=== PATIENT | male | born 1950 | race Caucasian/White ===

== ENCOUNTER → 2016-08-11 | Outpatient (CLI) | payer MEDICARE, OTHER ==
--- NOTE | 2016-08-11 11:27 | MR ---
EXAMINATION TYPE: MR knee LT wo con DATE OF EXAM: 08/11/2016 COMPARISON: NONE HISTORY: pain in lt knee TECHNIQUE: Multiplanar, multisequence imaging of the left knee is performed without IV contrast. FINDINGS: MEDIAL MENISCUS: There is a horizontal tear within the posterior horn medial meniscus. This may commu nicate with the superior articular surface. The meniscus is truncated along its posterior horn latera l aspect towards the midline. The anterior horn appears intact. LATERAL MENISCUS: Very little posterior horn lateral meniscus is evident. The anterior horn lateral m eniscus is present. CRUCIATE LIGAMENTS: The anterior cruciate ligament is absent. No residual fibers are identified. The posterior cruciate ligament is intact. COLLATERAL LIGAMENTS: The medial collateral ligament and lateral collateral ligament complex are inta ct and unremarkable. EXTENSOR MECHANISM: Visualized quadriceps and patellar tendons are intact. EFFUSION: There is a moderate joint effusion present. Small synovial cyst from the posterior superio r central joint space may be present. POPLITEAL CYST: Popliteal cyst is not identified. TRICOMPARTMENT SPACES: There is narrowing of the medial compartment joint space. Lateral compartment joint space appears widened. Very little articular surface remains present within the knee joint spac e. Lateral tibial plateau and femoral condylar spurring is noted. Some medial femoral condylar spurri ng is also present. There is thinning of the patellofemoral articular surface. CARTILAGE: Diffuse thinning and loss of articular cartilage especially within the lateral compartment . BONE MARROW SIGNAL: There is increased signal within the posterior lateral femoral condyle and tibial plateau at the areas of loss of joint space and articular cartilage. Similar bone edema within the p osterior medial femoral condyle and tibial plateau is present. OTHER: No additional significant abnormality is appreciated. IMPRESSION: 1. Tear with loss of visualized anterior cruciate ligament. 2. Moderate to large joint effusion. 3. Advanced degenerative changes within the medial and lateral compartment joint spaces. 4. Loss of the articular cartilage within the posterior medial and posterior lateral joint spaces wit h edema within the bone adjacent compatible with advanced osteoarthritic degenerative change. 5. Horizontal tear posterior horn medial meniscus. 6. Loss of visualization of the posterior horn lateral meniscus. Some residual component potentially could be within the posterior joint space at this level.
== END | disposition home or self-care (01) ==
LOC: RADMRIMAIN 06:40
PROVIDERS: ATTEND Family Medicine
DX: S83.512A Sprain of anterior cruciate ligament of left knee, initial encounter (principal); S83.242A Other tear of medial meniscus, current injury, left knee, initial encounter; M17.12 Unilateral primary osteoarthritis, left knee

== ENCOUNTER 2017-12-10 16:12 | Inpatient (IN) | payer MEDICARE, OTHER ==
[2017-12-10] MEDS ORDERED: SODIUM CHLORIDE 0.9% 1,000 ML IV STA (16:16)
[2017-12-10] MEDS ORDERED: DIPH,PERTUS(ACELL)TETVAC-LF 0.5 ML VIAL IM ONE (16:17)
--- NOTE | 2017-12-10 16:19 | ED ---
General Adult HPI - General Stated complaint: Possible Stroke Time Seen by Provider: 12/10/17 16:16 Source: patient, EMS, RN notes reviewed, old records reviewed - History of Present Illness Initial comments: 67 yo male presents with suspected stroke. Patient was found outside of a department store, he was initially unresponsive. He had skin abrasion to the right arm and hand. History was difficult for EMS secondary to altered mental status. Patient's mental status doesn't improve by the time of arrival. He has history of previous CVA with residual right-sided deficits. Patient is uncertain why he fell, he states did walk to the department store which was some distance. Denies chest pain or dyspnea. Denies fever or chills. Denies any worsening of his normal right sided weakness. He has history of foot drop on the right as well and is currently in a brace. He is uncertain if he hit his head. He was placed in a c-collar by EMS prior to arrival. - Related Data Home Medications Medication Instructions Recorded Confirmed Citalopram Hydrobromide [CeleXA] 10 mg PO DAILY 12/10/17 12/10/17 Diclofenac Potassium [Cataflam] 50 mg PO TID 12/10/17 12/10/17 Donepezil [Aricept] 10 mg PO DAILY 12/10/17 12/10/17 Folic Acid 1 mg PO DAILY 12/10/17 12/10/17 LORazepam [Ativan] 0.5 mg PO DAILY 12/10/17 12/10/17 Memantine [Namenda] 5 mg PO DAILY 12/10/17 12/10/17 Rosuvastatin [Crestor] 20 mg PO HS 12/10/17 12/10/17 Tamsulosin HCl [Flomax] 0.4 mg PO DAILY 12/10/17 12/10/17 amLODIPine [Norvasc] 10 mg PO DAILY 12/10/17 12/10/17 Allergies Allergy/AdvReac Type Severity Reaction Status Date / Time No Known Allergies Allergy Verified 12/10/17 16:36 Review of Systems ROS Statement: Those systems with pertinent positive or pertinent negative responses have been documented in the HPI. ROS Other: All systems not noted in ROS Statement are negative. General Exam General appearance: alert, in no apparent distress Head exam: Present: atraumatic, normocephalic Eye exam: Present: normal appearance, PERRL ENT exam: Present: mucous membranes dry Neck exam: Present: normal inspection, other (C-collar in place). Absent: tenderness, meningismus Respiratory exam: Present: normal lung sounds bilaterally. Absent: respiratory distress, wheezes Cardiovascular Exam: Present: regular rate, normal rhythm GI/Abdominal exam: Present: soft. Absent: distended, tenderness Extremities exam: Present: other (Superficial abrasion to the right elbow, forearm, hand). Absent: full ROM (contracture of the right upper extremity, right lower extremity foot brace) Neurological exam: Present: alert, CN II-XII intact, motor sensory deficit Skin exam: Present: warm, dry. Absent: cyanosis, diaphoretic Course Vital Signs 12/10/17 12/10/17 12/10/17 16:18 16:20 16:30 Temperature 98.5 F Pulse Rate 75 71 Respiratory 16 11 L Rate Blood Pressure 107/64 107/64 O2 Sat by Pulse 97 98 Oximetry 12/10/17 12/10/17 12/10/17 16:40 16:50 17:00 Temperature Pulse Rate 64 72 68 Respiratory 6 L 13 12 Rate Blood Pressure 107/65 107/65 107/65 O2 Sat by Pulse 100 100 100 Oximetry 12/10/17 12/10/17 12/10/17 17:10 17:17 17:20 Temperature Pulse Rate 73 71 Respiratory 8 L 16 16 Rate Blood Pressure 117/61 117/61 O2 Sat by Pulse 100 100 Oximetry 12/10/17 12/10/17 12/10/17 17:30 17:40 17:50 Temperature Pulse Rate 79 73 Respiratory 11 L 7 L Rate Blood Pressure 117/61 134/69 134/69 O2 Sat by Pulse 99 100 Oximetry 12/10/17 12/10/17 12/10/17 18:00 18:10 18:20 Temperature Pulse Rate 76 68 72 Respiratory 14 9 L 12 Rate Blood Pressure 134/69 109/65 109/65 O2 Sat by Pulse 98 100 100 Oximetry 12/10/17 12/10/17 12/10/17 18:30 18:40 18:50 Temperature Pulse Rate 71 Respiratory 20 21 17 Rate Blood Pressure 109/65 112/65 112/65 O2 Sat by Pulse 100 100 98 Oximetry EKG Findings - EKG Comments: EKG Findings:: EKG: Normal sinus rhythm, rate of 76, VT interval 196, QRS duration 96, QTC 450, no ST segment elevation or depression Medical Decision Making - Medical Decision Making 67 yo male presents status post fall, likely syncopal episode. Patient has superficial injuries, no head trauma. CT is obtained of the head, is negative for new intracranial pathology, there is large old lacunar infarct, CT cervical spine is negative for fracture dislocation. Chest x-ray and pelvis x-ray are unremarkable. EKG shows normal sinus rhythm, CBC, CMP and troponin are negative , urinalysis is pending. Patient was brought in as a suspected stroke however he has residual right-sided deficit from previous stroke this is unchanged. I did discuss at length with the patient's sister, his dysarthria and weakness is baseline. Patient clinically does appear somewhat dehydrated on initial EMS blood pressure was low. He is given IV hydration emergency department. He will be kept in observation for continued IV hydration and telemetry for syncopal episode. His sister will need to be called at the time of discharge to arrange transportation. - Lab Data Result diagrams: 12/10/17 16:22 12/10/17 16:22 Lab Results 12/10/17 12/10/17 12/10/17 Range/Units 16:20 16:22 16:22 WBC 5.9 (3.8-10.6) k/uL RBC 4.35 (4.30-5.90) m/uL Hgb 13.5 (13.0-17.5) gm/dL Hct 40.5 (39.0-53.0) % MCV 93.2 (80.0-100.0) fL MCH 31.1 (25.0-35.0) pg MCHC 33.3 (31.0-37.0) g/dL RDW 13.1 (11.5-15.5) % Plt Count 197 (150-450) k/uL Neutrophils % 60 % Lymphocytes % 30 % Monocytes % 7 % Eosinophils % 1 % Basophils % 0 % Neutrophils # 3.5 (1.3-7.7) k/uL Lymphocytes # 1.7 (1.0-4.8) k/uL Monocytes # 0.4 (0-1.0) k/uL Eosinophils # 0.1 (0-0.7) k/uL Basophils # 0.0 (0-0.2) k/uL PT (9.0-12.0) sec INR (<1.2) APTT (22.0-30.0) sec Sodium (137-145) mmol/L Potassium (3.5-5.1) mmol/L Chloride (98-107) mmol/L Carbon Dioxide (22-30) mmol/L Anion Gap mmol/L BUN (9-20) mg/dL Creatinine (0.66-1.25) mg/dL Est GFR (CKD-EPI)AfAm (>60 ml/min/1.73 sqM) Est GFR (CKD-EPI)NonAf (>60 ml/min/1.73 sqM) Glucose (74-99) mg/dL POC Glucose (mg/dL) 105 H (75-99) mg/dL POC Glu [employer] Intelligence Analyst ID Hailee Joyner Calcium (8.4-10.2) mg/dL Total Bilirubin (0.2-1.3) mg/dL AST (17-59) U/L ALT (21-72) U/L Alkaline Phosphatase (38-126) U/L Total Creatine Kinase 54 L (55-170) U/L CK-MB (CK-2) 0.7 (0.0-2.4) ng/mL CK-MB (CK-2) Rel Index 1.3 Troponin I <0.012 (0.000-0.034) ng/mL Total Protein (6.3-8.2) g/dL Albumin (3.5-5.0) g/dL 12/10/17 12/10/17 Range/Units 16:22 16:22 WBC (3.8-10.6) k/uL RBC (4.30-5.90) m/uL Hgb (13.0-17.5) gm/dL Hct (39.0-53.0) % MCV (80.0-100.0) fL MCH (25.0-35.0) pg MCHC (31.0-37.0) g/dL RDW (11.5-15.5) % Plt Count (150-450) k/uL Neutrophils % % Lymphocytes % % Monocytes % % Eosinophils % % Basophils % % Neutrophils # (1.3-7.7) k/uL Lymphocytes # (1.0-4.8) k/uL Monocytes # (0-1.0) k/uL Eosinophils # (0-0.7) k/uL Basophils # (0-0.2) k/uL PT 11.1 (9.0-12.0) sec INR 1.1 (<1.2) APTT 20.7 L (22.0-30.0) sec Sodium 142 (137-145) mmol/L Potassium 3.9 (3.5-5.1) mmol/L Chloride 107 (98-107) mmol/L Carbon Dioxide 20 L (22-30) mmol/L Anion Gap 15 mmol/L BUN 18 (9-20) mg/dL Creatinine 0.88 (0.66-1.25) mg/dL Est GFR (CKD-EPI)AfAm >90 (>60 ml/min/1.73 sqM) Est GFR (CKD-EPI)NonAf 90 (>60 ml/min/1.73 sqM) Glucose 106 H (74-99) mg/dL POC Glucose (mg/dL) (75-99) mg/dL POC Glu Shipboard Intelligence Analyst ID Calcium 9.5 (8.4-10.2) mg/dL Total Bilirubin 1.1 (0.2-1.3) mg/dL AST 40 (17-59) U/L ALT 68 (21-72) U/L Alkaline Phosphatase 63 (38-126) U/L Total Creatine Kinase (55-170) U/L CK-MB (CK-2) (0.0-2.4) ng/mL CK-MB (CK-2) Rel Index Troponin I (0.000-0.034) ng/mL Total Protein 6.8 (6.3-8.2) g/dL Albumin 4.1 (3.5-5.0) g/dL Disposition Clinical Impression: Dehydration Disposition: ADMITTED IP TO THIS [facility] Condition: Stable Is patient prescribed a controlled substance at d/c from ED?: No Referrals: None,Stated [Primary Care Provider] - 1-2 days Decision to Admit Reason: Admit from EC Decision Date: 12/10/17 Decision Time: 20:00
[2017-12-10 16:33] LABS: Basophils % (A) 0 %; Eosinophils # (A) 0.1 k/uL (0-0.7); Eosinophils % (A) 1 %; HCT 40.5 % (39.0-53.0); HGB 13.5 gm/dL (13.0-17.5); Lymphocytes # (A) 1.7 k/uL (1.0-4.8); Lymphocytes % (A) 30 %; MCH 31.1 pg (25.0-35.0); MCHC 33.3 g/dL (31.0-37.0); MCV 93.2 fL (80.0-100.0); Mean Platelet Volume 7.6; Monocytes # (A) 0.4 k/uL (0-1.0); Monocytes % (A) 7 %; Neutrophils # (A) 3.5 k/uL (1.3-7.7); Neutrophils % (A) 60 %; Platelet Count 197 k/uL (150-450); RBC 4.35 m/uL (4.30-5.90); RDW 13.1 % (11.5-15.5); WBC 5.9 k/uL (3.8-10.6)
[2017-12-10 16:42] LABS: ALT 68 U/L (21-72); AST 40 U/L (17-59); Albumin 4.1 g/dL (3.5-5.0); Alkaline Phosphatase 63 U/L (38-126); Anion Gap 15 mmol/L; Blood Urea Nitrogen 18 mg/dL (9-20); Calcium 9.5 mg/dL (8.4-10.2); Carbon Dioxide 20 mmol/L (22-30); Chloride 107 mmol/L (98-107); Glucose 106 mg/dL (74-99); Potassium 3.9 mmol/L (3.5-5.1); Sodium 142 mmol/L (137-145); Total Bilirubin 1.1 mg/dL (0.2-1.3); Total Protein 6.8 g/dL (6.3-8.2)
[2017-12-10 16:54] LABS: Creatine Kinase 54 U/L (55-170); INR 1.1 (<1.2); Prothrombin Time 11.1 sec (9.0-12.0)
[2017-12-10 16:57] LABS: Partial Thromboplastin Time 20.7 sec (22.0-30.0)
[2017-12-10 17:07] LABS: Creatine Kinase MB 0.7 ng/mL (0.0-2.4); Troponin I <0.012 ng/mL (0.000-0.034)
--- NOTE | 2017-12-10 17:07 | CT ---
EXAMINATION TYPE: CT brain aminta portillo DATE OF EXAM: 12/10/2017 COMPARISON: CT brain 10/02/2014 HISTORY: Confusion and fall today CT DLP: 1631.6 mGycm Automated exposure control for dose reduction was used. TECHNIQUE: CT scan of the head and cervical spine are performed without contrast. FINDINGS: There is cerebral cortical atrophy. There is large left old internal capsule infarct. The re is no mass effect nor midline shift. There is no sign of intracranial hemorrhage. There is enlarge ment of left lateral ventricle. There is white matter hypodensity left parietal lobe. Cervical vertebra have normal alignment. There is degenerative disc space narrowing from C3 to C7 wit h spurring of the endplates. Posterior elements are intact. Skull base is intact. Facet joints are in tact. IMPRESSION: Old large left internal capsule infarct. Cerebral atrophy. No acute intracranial abnormality. No pederson ge compared to old CT scan. Spondylotic changes in the mid and lower cervical spine. No fracture seen.
[2017-12-10 17:26] LABS: Glucose,Whole Blood 105 mg/dL (75-99)
--- NOTE | 2017-12-10 18:01 | XR ---
EXAMINATION TYPE: XR pelvis AP view DATE OF EXAM: 12/10/2017 COMPARISON: NONE HISTORY: Pain. Fall. TECHNIQUE: Single view FINDINGS: Pelvic ring is intact. There is right hip prosthesis. Components appear in anatomic positio n. There are radha in the pelvis. Sacroiliac joints appear intact. Proximal left femur and hip joint appear intact. IMPRESSION: No acute abnormality of the pelvis.
--- NOTE | 2017-12-10 18:02 | XR ---
EXAMINATION TYPE: XR chest 2V DATE OF EXAM: 12/10/2017 COMPARISON: NONE HISTORY: Fall. Pain TECHNIQUE: Frontal and lateral views of the chest are obtained. FINDINGS: Heart and mediastinum are within normal limits. Lungs are clear. Diaphragm is normal. Bony thorax is intact. There are chest leads. IMPRESSION: Normal chest.
[2017-12-10] MEDS ORDERED: ACETAMINOPHEN TAB 325 MG TAB PO PRN (19:56)
[2017-12-10] MEDS ORDERED: NALOXONE 0.4 MG/ML 1 ML VIAL IV PRN (19:56)
[2017-12-10] MEDS: SODIUM CHLORIDE 0.9% 1,000 ML IV SCH (20:27)
[2017-12-10 22:03] VITALS: BMI 22.4
[2017-12-10] MEDS: ATORVASTATIN 40 MG TAB PO SCH (22:11)
[2017-12-10 23:02] LABS: Appearance,Urine Cloudy (Clear); Bacteria,Urine Occasional /hpf; Bilirubin,Urine Negative (Negative); Blood,Urine Negative (Negative); Color,Urine Yellow; Glucose,Urine (UA) Negative (Negative); Hyaline Casts,Urine 1 /lpf (0-2); Ketones,Urine Negative (Negative); Leukocyte Esterase,Urine Trace (Negative); Mucus,Urine Few /hpf; Nitrite,Urine Positive (Negative); PH, Urine 5.5 (5.0-8.0); Protein,Urine Negative (Negative); RBC,Urine 1 /hpf (0-5); Specific Gravity,Urine 1.012 (1.001-1.035); Urobilinogen,Urine <2.0 mg/dL (<2.0); WBC,Urine 5 /hpf (0-5)
[2017-12-11] MEDS ORDERED: MEMANTINE 5 MG TAB PO SCH (09:00)
[2017-12-11] MEDS ORDERED: DONEPEZIL 10 MG TAB PO SCH (09:00)
[2017-12-11] MEDS ORDERED: amLODIPine 10 MG TAB PO SCH (09:00)
[2017-12-11] MEDS: SODIUM CHLORIDE 0.9% 1,000 ML IV SCH (09:15)
[2017-12-11] MEDS: DONEPEZIL 10 MG TAB PO SCH (11:44)
[2017-12-11] MEDS: MEMANTINE 5 MG TAB PO SCH (11:44)
--- NOTE | 2017-12-11 12:35 | US ---
EXAMINATION TYPE: US carotid duplex BILAT DATE OF EXAM: 12/11/2017 COMPARISON: US carotid October 27, 2014 CLINICAL HISTORY: syncopal episode. EXAM MEASUREMENTS: RIGHT: Peak Systolic Velocity (PSV) cm/sec ----- Right CCA: 73.5 ----- Right ICA: 88.6 ----- Right ECA: 61.0 ICA/CCA ratio: 1.2 RIGHT: End Diastole cm/sec ----- Right CCA: 18.6 ----- Right ICA: 23.1 ----- Right ECA: 10.4 LEFT: Peak Systolic Velocity (PSV) cm/sec ----- Left CCA: 66.9 ----- Left ICA: occluded ----- Left ECA: 97.7 ICA/CCA ratio: occluded LEFT: End Diastole cm/sec ----- Left CCA: 7.6 ----- Left ICA: occluded ----- Left ECA: 8.7 VERTEBRALS (direction of flow): Right Vertebral: Antegrade Left Vertebral: Antegrade Rhythm: Normal Left sided occlusion. IMPRESSION: Chronic occlusion of left internal carotid artery just past bulb. No significant stenosi s in right internal carotid artery. No significant change from prior. Criteria for Assigning % of Stenosis / Diameter reduction (Estimation based on the indirect measurements of the internal carotid artery velocities (ICA PSV). 1. Normal (no stenosis)=ICA PSV < 125 cm/s: ratio < 2.0: ICA EDV<40 cm/s. 2. Less than 50% stenosis=ICA PSV < 125 cm/s: ratio < 2.0: ICA EDV<40 cm/s. 3. 50 to 69% stenosis=ICA PSV of 125 to 230 cm/s: ration 2.0 ? 4.0: ICA EDV 40-100 cm/s. 4. Greater than 70% stenosis to near occlusion= ICA PSV > 230 cm/s: ratio > 4.0: ICA EDV > 100 cm/s. 5. Near occlusion= ICA PSV velocities may be low or undetectable: variable ratio and ICA EDV. 6. Total occlusion=unable to detect flow.
--- NOTE | 2017-12-11 18:48 | ECHOF ---
Referral Reason:syncopal episode MEASUREMENTS -------- HEIGHT: 182.9 cm WEIGHT: 78.0 kg BP: 123/72 IVSd: 1.3 cm (0.6 - 1.1) LVIDd: 4.6 cm (3.9 - 5.3) LVPWd: 1.3 cm (0.6 - 1.1) IVSs: 1.3 cm LVIDs: 3.3 cm LVPWs: 1.6 cm Ao Diam: 3.3 cm (2.0 - 3.7) LA Diam: 3.2 cm (2.7 - 3.8) AV Cusp: 2.2 cm (1.5 - 2.6) EPSS: 1.7 cm MV E Chetan: 0.48 m/s MV DecT: 265 ms MV A Chetan: 0.44 m/s MV E/A Ratio: 1.10 RAP: 5.00 mmHg RVSP: 13.69 mmHg MV EF SLOPE: 65.33 mm/s (70 - 150) MV EXCURSION: 9.72 mm (> 18.000) FINDINGS -------- Sinus rhythm. This was a technically good study. The left ventricular size is normal. There is mild concentric left ventricular hypertrophy. Overa ll left ventricular systolic function is low-normal with, an EF between 50 - 55 %. The right ventricle is normal in size and function. The left atrium is normal in size. The right atrium is normal in size. The aortic valve is trileaflet, and appears structurally normal. No aortic stenosis or regurgitation. Mild mitral regurgitation is present. Mild tricuspid regurgitation present. The right ventricular systolic pressure, as measured by Doppl er, is 13.69mmHg. Pulmonic valve appears structurally normal. The aortic root, ascending aorta and aortic arch are normal. The pericardium is normal. CONCLUSIONS -------- 1. Sinus rhythm. 2. This was a technically good study. 3. The left ventricular size is normal. 4. There is mild concentric left ventricular hypertrophy. 5. Overall left ventricular systolic function is low-normal with, an EF between 50 - 55 %. 6. The right ventricle is normal in size and function. 7. The left atrium is normal in size. 8. The right atrium is normal in size. 9. The aortic valve is trileaflet, and appears structurally normal. No aortic stenosis or regurgitati on. 10. Mild mitral regurgitation is present. 11. Mild tricuspid regurgitation present. 12. The right ventricular systolic pressure, as measured by Doppler, is 13.69mmHg. 13. Pulmonic valve appears structurally normal. 14. The aortic root, ascending aorta and aortic arch are normal. 15. The pericardium is normal. TECHNICAL SERVICES ANALYST: Mary Lam RDCS
--- NOTE | 2017-12-11 20:06 | HP ---
HISTORY AND PHYSICAL CHIEF COMPLAINT: Possible stroke. HISTORY OF PRESENT ILLNESS: 67-year-old white male with a suspected stroke, was found in department store unresponsive. Skin abrasions, right arm, right hand. altered mental state. Does not know why he passed out. He had previous CVA with residual right-sided effects. Uncertain why he fell, unsure if he tripped. He has bilateral significant knee arthritis. He has footdrop on the right and is currently in a brace and uncertain if he hit his head. He is in a C-collar in the ER, he is on the floor at this time and says that he feels fine. MEDICATIONS: 1. Celexa 10 daily. 2. Cataflam 50 t.i.d. 3. Aricept 10 daily. 4. Folic acid 1 mg daily. 5. Ativan 0.5 mg daily p.r.n. for anxiety. 6. Namenda 5 mg daily. 7. Crestor 20 mg daily. 8. Flomax 0.4 mg daily. 9. Norvasc 10 mg daily. ALLERGIES: No known drug allergies. PHYSICAL EXAMINATION: Blood pressure in the emergency room was 107/64, heart rate mid 70s, respiratory rate 11 to 16, temp 98.5. CARDIOVASCULAR: S1, S2. Lungs clear. GI is soft. Mild tenderness around cervical muscles. He has right swelling. He has some abrasions, right hand. Integument exam has some right lower extremity swelling and his right elbow. Neuro: Cranial nerves are intact. Skin is warm and dry. Lungs are clear. Heart regular rate and rhythm. REVIEW OF SYSTEMS: Fourteen point review of systems negative except for mentioned in HPI. EKG shows sinus rhythm. ASSESSMENT: Status post fall, likely syncopal episode, superficial injuries. CT of the head is negative. There is a large old lacunar infarct. CT of the cervical spine negative for fracture. Chest x-ray, pelvic x-rays are unremarkable. His dysarthria, weakness at baseline. He was dehydrated on initial. Blood pressure was possibly low. IV hydration will be done. Neurology consult. Possible discharge home next 24 hours if patient stabilizes and cleared by Neurology. Possibly cut his Norvasc down to 5 mg a day due to borderline low hypotension and dehydration. MMODL / IJN: [id number] /
[2017-12-11 20:12] VITALS: RESP 16
--- NOTE | 2017-12-11 20:15 | XR ---
PROCEDURE: XR elbow limited RT 3V DATE AND TIME: 12/11/2017 7:55 PM CLINICAL INDICATION: Pain;trauma TECHNIQUE: Department protocol. 3V COMPARISON: None FINDINGS: Hardware is intact without khanh-prosthesis lucencies. There is no fracture or malalignment. The soft tissues are unremarkable. IMPRESSION: NO ACUTE PROCESS.
[2017-12-11] MEDS: ATORVASTATIN 40 MG TAB PO SCH (21:06)
[2017-12-12] MEDS: SODIUM CHLORIDE 0.9% 1,000 ML IV SCH ×2 (00:23→11:01)
[2017-12-12 01:32] LABS: Cholesterol 107 mg/dL (<200); HDL Cholesterol 44 mg/dL (40-60); LDL Cholesterol,Calculated 42 mg/dL (0-99); Triglycerides 103 mg/dL (<150)
[2017-12-12] MEDS: DONEPEZIL 10 MG TAB PO SCH (07:54)
[2017-12-12] MEDS: MEMANTINE 5 MG TAB PO SCH (07:54)
[2017-12-12] MEDS: amLODIPine 5 MG TAB PO SCH (07:54)
--- NOTE | 2017-12-12 09:40 | CONS ---
CONSULTATION DATE OF CONSULTATION: 12/11/2017 CHIEF COMPLAINT: Presyncopal episode. HISTORY OF PRESENT ILLNESS: Mr. Gillette is a pleasant 67-year-old male, who was being evaluated today on 12/11/2017 by the neurology service per the request of Dr. Grubbs for a presyncopal spell. The patient states that he was at a local shopping store when he felt very dizzy and lightheaded. According to the chart, the patient became unresponsive but the patient himself denies any loss of consciousness. He did fall to the ground and had some superficial abrasions on his right arm and hand. The patient does have a previous history of stroke with residual right hemiparesis, but he is able to ambulate using a cane. EMS was called and the patient was transferred to [facility] Emergency Room where a CT scan of the brain was done, which showed an old infarct involving the left internal capsule along with some generalized atrophy. Overall, the study was felt to be unchanged when compared to his 2015 CT scan of the brain. A CT scan of the cervical spine showed no evidence of any fractures. His carotid Doppler showed chronic occlusion of his left internal carotid artery and no hemodynamically significant stenosis on the right side. His CBC, comprehensive metabolic profile and cardiac enzymes were normal. His urinalysis showed 5 WBCs with trace leukocyte esterase. At the time of my evaluation, the patient is lying in his bed and appears to be in no acute distress. He denied any recurrence of any dizziness since his arrival to the hospital. His blood pressure since arriving to the hospital has been normal to borderline low. PAST MEDICAL HISTORY: Ischemic stroke, depression, dementia, dyslipidemia, hypertension. SOCIAL HISTORY: He denied any tobacco or alcohol or drug use. FAMILY HISTORY: Noncontributory. HOME MEDICATIONS: Reviewed in the chart. ALLERGIES: No known drug allergies. REVIEW OF SYSTEMS: CONSTITUTIONAL: Negative. EYES: Negative. ENT: As mentioned above. CARDIOVASCULAR: As mentioned above. He denies any chest pain. RESPIRATORY: Negative. NEUROLOGICAL: As mentioned above. GASTROINTESTINAL: Negative. GENITOURINARY: Positive for occasional urinary retention. PSYCHIATRIC: Positive for history of depression. DERMATOLOGICAL: As mentioned above. ENDOCRINE: Negative. MUSCULOSKELETAL: Positive for occasional joint pain. PHYSICAL EXAM: Vital signs show a temperature of 98.8, pulse 78, respiration 18, blood pressure 108/57. GENERAL APPEARANCE: The patient is a well-developed male, who appears to be in no acute distress. HEENT: Normocephalic, atraumatic. Neck is supple with no masses felt. CARDIOVASCULAR: Regular rate and rhythm. ABDOMEN: Nontender, nondistended. Extremities showed no edema or clubbing. Superficial abrasions are noticed on the right upper extremity. NEUROLOGICAL EXAM: The patient is awake and oriented x3. Strength is 3 out of 5 in the right upper extremity, 4+ out of 5 in the right lower extremity, and 5 out of 5 on the left side. Significant obstetrics specialist weakness is present on the right side. Sensory exam was normal to light touch in all 4 extremities. Language testing showed slightly reduced fluency and naming. Cranial nerve testing showed right facial weakness. IMPRESSION: 1. Dizziness. 2. Presyncopal episode. 3. History of ischemic stroke with residual right hemiparesis. 4. Left internal carotid artery occlusion. 5. History of dementia. RECOMMENDATION: The patient's presyncopal episode was likely due to cardiovascular etiology as he did become very lightheaded before he fell to the ground. Continue blood pressure monitoring and I do recommend telemetry monitoring. A cardiology consultation is recommended. From a neurology standpoint, I will order an EEG. The patient does have a previous history of stroke and will continue on aspirin therapy. It is unclear why this has not been started on his admitting medications, but I do recommend him being on aspirin. A fasting lipid panel, and serum homocysteine level will be ordered. Continue with neuro checks. As for his history of dementia, I will keep him on his home dose of Aricept and Namenda. I will continue to follow with you. Further recommendations to follow. Thank you for allowing me to participate in the care of your patient. If you have any questions, please feel free to contact me. MMODL / IJN: [id number] /
--- NOTE | 2017-12-12 14:25 | P.PN ---
Subjective Progress Note Date: 12/12/17 Principal diagnosis: Presyncope Pleasant 67-year-old male continuing to be evaluated by the neurology service for presyncopal episode. His symptoms were that of dizziness and lightheadedness. He denies loss of consciousness. There was a fall and he had some superficial abrasions to the right arm and hand. He has a history of stroke with residual right hemiparesis. His muscle CT of the brain was done and showed an old infarct of the left internal capsule. The study was unchanged from his 2015 study. 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 His lipid profile showed a triglyceride of 103, cholesterol of 107, LDL of 42, and an HDL of 44. At the time of my exam he is resting comfortably in bed and EEG electrodes are being hooked up for his ordered study. Objective - Vital Signs Vital signs: Vital Signs Temp 98.4 F 12/12/17 08:00 Pulse 72 12/12/17 08:00 Resp 16 12/12/17 12:00 BP 111/68 12/12/17 08:00 Pulse Ox 96 12/12/17 08:00 Intake & Output 12/11/17 12/12/17 12/12/17 18:59 06:59 18:59 Intake Total 480 Output Total 1200 650 200 Balance -720 -650 -200 Intake: Oral 480 Output: Urine 1200 650 200 Other: Voiding Method Urinal Urinal Urinal # Voids 1 - Constitutional General appearance: Present: average body habitus, cooperative - EENT Eyes: Present: EOMI, PERRLA. Absent: abnormal pupil, ptosis ENT: Present: hearing grossly normal - Neck Neck: Present: normal ROM - Respiratory Respiratory: negative: prolonged expiration, prolonged inspiration - Cardiovascular Rhythm: regular - Gastrointestinal General gastrointestinal: Absent: distended - Neurologic Neurologic Comment(s): The patient is alert awake and oriented 3. Speech is normal, we'll there remains slightly reduced fluency. There is no facial asymmetry. Strength is 5 out of 5 in left upper and lower extremities, and 3 out of 5 in the right upper extremity, 4+ out of 5 in the right lower extremity. There is no sensory deficit. No tremors or seizures are seen. Cranial nerves II through XII are intact globally except for some right facial weakness. - Labs CBC & Chem 7: 12/10/17 16:22 12/10/17 16:22 Assessment and Plan (1) Dizziness Current Visit: Yes Status: Resolved Code(s): R42 - DIZZINESS AND GIDDINESS SNOMED Code(s): 730332832 (2) Pre-syncope Current Visit: Yes Status: Acute Code(s): R55 - SYNCOPE AND COLLAPSE SNOMED Code(s): 426812124 (3) History of stroke Current Visit: Yes Status: Chronic Code(s): Z86.73 - PRSNL HX OF TIA (TIA), AND CEREB INFRC W/O RESID DEFICITS SNOMED Code(s): 744579165 (4) Hemiparesis affecting right side as late effect of cerebrovascular accident Current Visit: Yes Status: Chronic Code(s): I69.351 - HEMIPLGA FOLLOWING CEREBRAL INFRC AFF RIGHT DOMINANT SIDE SNOMED Code(s): 790998927 (5) Left carotid artery occlusion Current Visit: Yes Status: Chronic Code(s): I65.22 - OCCLUSION AND STENOSIS OF LEFT CAROTID ARTERY SNOMED Code(s): 029153560926663 (6) Dementia Current Visit: Yes Status: Chronic Code(s): F03.90 - UNSPECIFIED DEMENTIA WITHOUT BEHAVIORAL DISTURBANCE SNOMED Code(s): 51814567 Plan: This episode could possibly have been from dehydration and hypotension, combined with his known left carotid occlusion. Symptoms have all resolved. Continue cardiology evaluation as needed. EEG is being performed at the time of my exam, and we will review the results unavailable. Continue aspirin therapy and Lipitor at current dose.. Continue Aricept and Namenda. Barring any unforeseen abnormalities on his EEG he would be cleared from a neurological standpoint. I have performed a history and physical on the above patient. I have reviewed the above note, and agree.
[2017-12-12] MEDS: ASPIRIN 81 MG PO SCH (17:15)
--- NOTE | 2017-12-12 18:16 | EEG ---
ELECTROENCEPHALOGRAM REPORT DATE OF SERVICE: 12/12/2017 REASON FOR TESTING: Dizziness. DESCRIPTION OF THE PROCEDURE: This EEG was performed using a 21-channel digital electroencephalograph, following international 10-20 system. DESCRIPTION OF THE RECORDING: From the beginning of the tracing, and with the patient's eyes closed, the background rhythm was mostly consisting of 7 Hz theta frequency in the posterior occipital leads. No obvious asymmetry is seen. Photic stimulation was performed with no driving response seen. No pathological waves were elicited. Hyperventilation was not performed. Occasional movement artifacts are seen. The patient remains awake throughout the tracing. No epileptiform discharges were seen. His EKG lead showed a regular rate and rhythm. INTERPRETATION: This awake EEG is abnormal due to the presence of generalized slowing of the background rhythm, mostly in the theta range. This is consistent with mild encephalopathy. No epileptiform discharges were seen. The absence of epileptiform discharges does not rule out the diagnosis of epilepsy; therefore clinical correlation is recommended. MMCAROLINA / HIMANSHU: [id number] /
--- NOTE | 2017-12-12 22:13 | PN ---
PROGRESS NOTE 67-year-old white white male admitted with syncope. Neurology saw the patient. Wants Cardiology to clear him, which will be done. EEG was done to rule out seizures, which showed mild encephalopathy and no seizure activity. Dr. Sahu, Neurology saw the patient who wants Cardiology to see him. He has had old infarcts in the left internal capsule. ASSESSMENT: 1. Dizziness, presyncope. 2. History of cerebrovascular accident. 3. Hemiparesis secondary to right sided prior cerebrovascular accident. 4. Possibly dehydration. 5. Hypotension. His amlodipine was decreased to 5 mg. Significant carotid occlusion. Continue aspirin, Lipitor, Aricept and Namenda. Possibly discharge home if cleared by Cardiology in the morning. MMODL / IJN: [id number] /
[2017-12-12] MEDS: ATORVASTATIN 40 MG TAB PO SCH (22:31)
[2017-12-13 11:29] LABS: Basophils % (A) 1 %; Eosinophils # (A) 0.2 k/uL (0-0.7); Eosinophils % (A) 2 %; HCT 42.6 % (39.0-53.0); HGB 13.6 gm/dL (13.0-17.5); Lymphocytes # (A) 1.5 k/uL (1.0-4.8); Lymphocytes % (A) 18 %; MCH 30.1 pg (25.0-35.0); MCHC 31.9 g/dL (31.0-37.0); MCV 94.3 fL (80.0-100.0); Mean Platelet Volume 7.1; Monocytes # (A) 0.5 k/uL (0-1.0); Monocytes % (A) 6 %; Neutrophils % (A) 71 %; Platelet Count 192 k/uL (150-450); RBC 4.52 m/uL (4.30-5.90); RDW 13.3 % (11.5-15.5); WBC 8.4 k/uL (3.8-10.6)
[2017-12-13 11:43] LABS: ALT 63 U/L (21-72); AST 35 U/L (17-59); Albumin 3.6 g/dL (3.5-5.0); Alkaline Phosphatase 65 U/L (38-126); Anion Gap 9 mmol/L; Blood Urea Nitrogen 11 mg/dL (9-20); Calcium 9.3 mg/dL (8.4-10.2); Carbon Dioxide 28 mmol/L (22-30); Chloride 104 mmol/L (98-107); Glucose 87 mg/dL (74-99); Potassium 4.2 mmol/L (3.5-5.1); Sodium 141 mmol/L (137-145); Total Bilirubin 1.5 mg/dL (0.2-1.3); Total Protein 6.3 g/dL (6.3-8.2)
[2017-12-13 12:00] VITALS: PULSE 62
[2017-12-13] MEDS ORDERED: SODIUM CHLORIDE 0.9% 1,000 ML IV SCH (12:15)
[2017-12-13] MEDS: MEMANTINE 5 MG TAB PO SCH (12:33)
[2017-12-13] MEDS: amLODIPine 5 MG TAB PO SCH (12:33)
[2017-12-13] MEDS: DONEPEZIL 10 MG TAB PO SCH (12:33)
[2017-12-13] MEDS: ASPIRIN 81 MG PO SCH (12:33)
[2017-12-13] MEDS ORDERED: SODIUM CHLORIDE 0.9% 500 ML 500 ML IV ONE (14:18)
--- NOTE | 2017-12-13 14:31 | P.CRDCN ---
History of Present Illness History of present illness: Mr. Gillette is a pleasant 67-year-old male past medical history significant for CVA with right sided residual, dyslipidemia, hypertension and chronic nicotine dependence. 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 We have been asked to see him in consultation for syncope. He states 2 days ago he was walking to [facility] when he all of a sudden fell. There were no symptoms of chest pain, shortness of breath , dizziness, palpitatioCT brain with evidence of old large left internal capsule infarct, cerebral atrophy with no acute intracranial abnormality and no changes compared to old computed tomography scan.ns or nausea. He was able to catch himself from actually falling to the ground and continue walking. He states a few minutes later he was trying to get into the wheelchair cart when he again fell forward this time losing consciousness. He again had no symptoms prior to falling. He has chronic right sided weakness from his previous CVA but he feels like his right side is more weak since he fell. Neuro has also seen the patient in consultation. They believe this event is secondary to dehydration and hypotension. No acute stroke. EKG reveals sinus mechanism with no acute ST or T-wave abnormalities. Chest xray CT brain shows evidence of old large internal capsule infarct with cerebral atrophy. No acute intracranial abnormality and no change from previous CT. Chest xray negative for an acute cardiopulmonary process. Carotid doppler with chronic occlusion of left internal carotid artery just past the bulb and no stenosis of the right ICA. No change from prior. Echocardiogram obtained reveals preserved LV systolic function with EF 50-55%, mild TR and mild MR. Laboratory data reviewed, hgb 13.6, plt 192, sodium 141, potassium 4.2, creatinine 0.56, cardiac enzymes negative x1, TSH 1.46. Current cardiac medications amlodipine 10 mg daily and rosuvastatin 20 mg daily. He also takes Flomax, Namenda, Ativan, Aricept and Celexa. At the time of my exam: CONSTITUTIONAL: Denies fever. Denies chills. EYES: Denies blurred vision. Denies vision changes. Denies eye pain. EARS, NOSE, MOUTH & THROAT: Denies headache. Denies sore throat. Denies ear pain. CARDIOVASCULAR: Denies chest pain. Denies shortness of breath. Denies orthopnea. Denies PND. Denies palpitations. RESPIRATORY: Denies cough. GASTROINTESTINAL: Denies abdominal pain. Denies diarrhea. Denies constipation. Denies nausea. Denies vomiting. MUSCULOSKELETAL: Denies myalgias. INTEGUMENTARY: Denies pruitis. Denies rash. NEUROLOGIC: Denies numbness. Denies tingling. Denies weakness. PSYCHIATRIC: Denies anxiety. Denies depression. ENDOCRINE: Denies fatigue. Denies weight change. Denies polydipsia. Denies polyurina. GENITOURINARY: Denies burning, hematuria or urgency with micturation. HEMATOLOGIC: Denies history of anemia. Denies bleeding. Blood pressure 128/83 heart rate 62 afebrile maintaining oxygen saturation on room air GENERAL: This is a 67-year-old male in no apparent distress at the time of my examination. HEENT: Head is atraumatic, normocephalic. Pupils are equal, round. Sclerae anicteric. Conjunctivae are clear. Mucous membranes of the mouth are moist. Neck is supple. There is no jugular venous distention. No carotid bruit is heard. LUNGS: Clear to auscultation no wheezes, rales or rhonchi. No chest wall tenderness is noted on palpation or with deep breathing. HEART: Regular rate and rhythm without murmurs, rubs or gallops. S1 and S2 heard. ABDOMEN: Soft, nontender. Bowel sounds are heard. No organomegaly noted. EXTREMITIES: No evidence of peripheral edema and no calf tenderness noted. VASCULAR: Radial and dorsalis pedis pulses palpated, no evidence of clubbing. NEUROLOGIC: Patient is awake, alert and oriented x3. ASSESSMENT Syncope with fall, asymptomatic CVA with right sided residual Dyslipidemia PLAN Perform Tilt Table Study. Check magnesium and d-dimer level. Apply 30-day event monitor upon discharge to assess for an acute arrhythmia. Follow-up with Dr. Paredes in 4-6 weeks. Thank you kindly for this consultation. Nurse Practitioner note has been reviewed, I agree with a documented findings and plan of care. Patient was seen and examined. 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 pt has difficulties with memory impairment and expressive aphasia as well. History of Any Multi-Drug Resistant Organisms: None Reported Past Surgical History: No Surgical Hx Reported Past Anesthesia/Blood Transfusion Reactions: No Reported Reaction Past Psychological History: No Psychological Hx Reported Smoking Status: Current some day smoker Past Alcohol Use History: None Reported Past Drug Use History: None Reported - Past Family History Father History Unknown: Yes Medications and Allergies Home Medications Medication Instructions Recorded Confirmed Type Citalopram Hydrobromide [CeleXA] 10 mg PO DAILY 12/10/17 12/10/17 History Diclofenac Potassium [Cataflam] 50 mg PO TID 12/10/17 12/10/17 History Donepezil [Aricept] 10 mg PO DAILY 12/10/17 12/10/17 History Folic Acid 1 mg PO DAILY 12/10/17 12/10/17 History LORazepam [Ativan] 0.5 mg PO DAILY 12/10/17 12/10/17 History Memantine [Namenda] 5 mg PO DAILY 12/10/17 12/10/17 History Rosuvastatin [Crestor] 20 mg PO HS 12/10/17 12/10/17 History Tamsulosin HCl [Flomax] 0.4 mg PO DAILY 12/10/17 12/10/17 History amLODIPine [Norvasc] 10 mg PO DAILY 12/10/17 12/10/17 History Allergies Allergy/AdvReac Type Severity Reaction Status Date / Time No Known Allergies Allergy Verified 12/10/17 16:36 Physical Exam Vitals: Vital Signs Temp Pulse Resp BP Pulse Ox 12/13/17 12:00 62 16 12/13/17 11:59 98.3 F 62 128/83 96 12/13/17 08:00 97.8 F 58 L 16 116/73 96 12/13/17 04:00 16 12/13/17 03:57 97.7 F 55 L 16 116/69 94 L 12/13/17 00:00 16 12/12/17 23:53 98.4 F 66 16 117/70 94 L 12/12/17 20:00 16 12/12/17 16:00 59 L 16 12/12/17 15:51 98.5 F 59 L 16 116/76 96 Intake and Output 12/12/17 12/13/17 12/13/17 22:59 06:59 14:59 Intake Total 240 Output Total 200 Balance 40 Intake: Oral 240 Output: Urine 200 Other: Voiding Method Urinal Urinal Urinal # Voids 4 1 # Bowel Movements 1 Results 12/13/17 10:10 12/13/17 10:10 Cardiac Enzymes 12/13/17 Range/Units 10:10 AST 35 (17-59) U/L CBC 12/13/17 Range/Units 10:10 WBC 8.4 (3.8-10.6) k/uL RBC 4.52 (4.30-5.90) m/uL Hgb 13.6 (13.0-17.5) gm/dL Hct 42.6 (39.0-53.0) % Plt Count 192 (150-450) k/uL Comprehensive Metabolic Panel 12/13/17 Range/Units 10:10 Sodium 141 (137-145) mmol/L Potassium 4.2 (3.5-5.1) mmol/L Chloride 104 (98-107) mmol/L Carbon Dioxide 28 (22-30) mmol/L BUN 11 (9-20) mg/dL Creatinine 0.56 L (0.66-1.25) mg/dL Glucose 87 (74-99) mg/dL Calcium 9.3 (8.4-10.2) mg/dL AST 35 (17-59) U/L ALT 63 (21-72) U/L Alkaline Phosphatase 65 (38-126) U/L Total Protein 6.3 (6.3-8.2) g/dL Albumin 3.6 (3.5-5.0) g/dL Current Medications Generic Name Dose Route Start Last Admin Trade Name Machoq PRN Reason Stop Dose Admin Acetaminophen 650 mg 12/10/17 19:56 Tylenol Tab PO Q6HR PRN Mild Pain or Fever > 100.5 Amlodipine Besylate 5 mg 12/12/17 09:00 12/13/17 12:33 Norvasc PO 5 mg DAILY PAULA Administration Aspirin 81 mg 12/12/17 15:24 12/13/17 12:33 Aspirin PO 81 mg DAILY PAULA Administration Atorvastatin Calcium 40 mg 12/10/17 21:00 12/12/17 22:31 Lipitor PO 40 mg HS PAULA Administration Donepezil HCl 10 mg 12/11/17 09:00 12/13/17 12:33 Aricept PO 10 mg DAILY PAULA Administration Sodium Chloride 1,000 mls @ 75 mls/hr 12/10/17 20:00 12/12/17 11:01 Saline 0.9% IV 75 mls/hr .[id number] PAULA Administration Sodium Chloride 1,000 mls @ 20 mls/hr 12/13/17 12:15 Saline 0.9% IV .Q24H PAULA Memantine 5 mg 12/11/17 09:00 12/13/17 12:33 Namenda PO 5 mg DAILY PAULA Administration Naloxone HCl 0.2 mg 12/10/17 19:56 Narcan IV Q2M PRN Opioid Reversal Intake and Output 12/12/17 12/13/17 12/13/17 22:59 06:59 14:59 Intake Total 240 Output Total 200 Balance 40 Intake: Oral 240 Output: Urine 200 Other: Voiding Method Urinal Urinal Urinal # Voids 4 1 # Bowel Movements 1 12/13/17 10:10 12/13/17 10:10
[2017-12-13 16:20] VITALS: BP 124/68; TEMP 98
--- NOTE | 2017-12-15 07:57 | P.PCN ---
Preoperative Diagnosis: Diagnosis Syncope, possible dysautonomia Twelve-lead ECG already in the patient's medical record. No bradycardia Tilt table test Tilt table test per protocol Baseline blood pressure 127/64 mmHg heart rate 64 beats a minute Patient was tilted upright at 90% to degrees. There was an immediate drop in blood pressure about 10 mmHg with a minimal increase in heart rate to 72 beats a minute. Thereafter he was a very gradual and mild decline in blood pressure and the lowest blood pressure hovered around 97 mmHg heart rates ranged in the 70s and 80s sinus rhythm. When he was laid flat his blood pressure improved by around 5-10 mmHg Impression Mild orthostatic hypotension syndrome, asymptomatic during this tilt table test but consistent with his history
== END 2017-12-13 19:17 | disposition home or self-care (01) | DRG 641 ==
LOC: EC 16:12 → 1SOBS 20:00 → OBSVTOIN 12-12 20:40 → INTOOBSV 12-12 20:40
PROVIDERS: ADMIT Family Medicine; ATTEND Family Medicine
DX: E86.0 Dehydration (principal); I69.952 Hemiplegia and hemiparesis following unspecified cerebrovascular disease affecting left dominant side; I95.9 Hypotension, unspecified; I65.22 Occlusion and stenosis of left carotid artery; F03.90 Unspecified dementia, unspecified severity, without behavioral disturbance, psychotic disturbance, mood disturbance, and anxiety; I69.920 Aphasia following unspecified cerebrovascular disease; E78.5 Hyperlipidemia, unspecified; F17.200 Nicotine dependence, unspecified, uncomplicated; I10 Essential (primary) hypertension; M21.371 Foot drop, right foot; S40.811A Abrasion of right upper arm, initial encounter; F32.9 Major depressive disorder, single episode, unspecified; N42.9 Disorder of prostate, unspecified; R55 Syncope and collapse; M17.0 Bilateral primary osteoarthritis of knee; Z79.899 Other long term (current) drug therapy; W19.XXXA Unspecified fall, initial encounter
CPT/HCPCS: 36415; 70450; 71046; 72125; 72170; 80053; 80061; 81001; 82550; 82553; 83090; 83735; 84443; 84484; 85025; 85379; 85610; 85730; 90471; 90715; 93005; 93270; 93271; 93306; 93660; 93880; 95816; 96360; 96361; 99285

== ENCOUNTER 2018-07-01 08:36 | Emergency (ER) | payer MEDICARE, OTHER ==
[2018-07-01] MEDS ORDERED: HYDROcodone/APAP 5-325MG 1 EACH TAB PO STA (08:48)
[2018-07-01 08:50] VITALS: RESP 18
--- NOTE | 2018-07-01 09:15 | XR ---
EXAMINATION TYPE: XR Hip LT and AP Pelvis , 3 VIEWS DATE OF EXAM ORDERED: 07/01/2018 HISTORY: Pain. COMPARISON: None. FINDINGS: There is a right hip arthroplasty in place. There is associated tension banding. The entir e prosthesis is not visualized. There has been a previous left-sided hernia repair. There are degenerative changes within the left hip. No fracture or dislocation is seen. There are als o degenerative changes in the lower lumbar spine. IMPRESSION: 1. INCOMPLETELY VISUALIZED RIGHT HIP PROSTHESIS. 2. NO ACUTE OSSEOUS LESION. 3. POSTSURGICAL CHANGE. 4. DEGENERATIVE CHANGE.
--- NOTE | 2018-07-01 09:24 | ED ---
Lower Extremity Injury HPI - General Chief Complaint: Extremity Injury, Lower Stated Complaint: Fall/hip pain Time Seen by Provider: 07/01/18 08:37 Source: patient, EMS, RN notes reviewed Mode of arrival: EMS Limitations: no limitations - History of Present Illness Initial Comments: 67-year-old male presents emergency Department with chief complaint of mechanical fall. Patient states that he is walking back from the bathroom and which she does have some difficulty walking secondary to prior stroke. Patient states he tripped and fell onto his left hip. Patient complains of left hip pain. Patient denies any head injury no loss conscious. Denies any upper extremity injury. Patient states pain is about 5 or 6. Patient denies any paresthesias. Patient offers no other complaints. - Related Data Home Medications Medication Instructions Recorded Confirmed Citalopram Hydrobromide [CeleXA] 10 mg PO DAILY 12/10/17 12/10/17 Diclofenac Potassium [Cataflam] 50 mg PO TID 12/10/17 12/10/17 Donepezil [Aricept] 10 mg PO DAILY 12/10/17 12/10/17 Folic Acid 1 mg PO DAILY 12/10/17 12/10/17 LORazepam [Ativan] 0.5 mg PO DAILY 12/10/17 12/10/17 Memantine [Namenda] 5 mg PO DAILY 12/10/17 12/10/17 Rosuvastatin [Crestor] 20 mg PO HS 12/10/17 12/10/17 Tamsulosin HCl [Flomax] 0.4 mg PO DAILY 12/10/17 12/10/17 amLODIPine [Norvasc] 10 mg PO DAILY 12/10/17 12/10/17 Allergies Allergy/AdvReac Type Severity Reaction Status Date / Time No Known Allergies Allergy Verified 12/10/17 16:36 Review of Systems ROS Statement: Those systems with pertinent positive or pertinent negative responses have been documented in the HPI. ROS Other: All systems not noted in ROS Statement are negative. 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 pt has difficulties with memory impairment and expressive aphasia as well. History of Any Multi-Drug Resistant Organisms: None Reported Past Surgical History: No Surgical Hx Reported Past Anesthesia/Blood Transfusion Reactions: No Reported Reaction Past Psychological History: No Psychological Hx Reported Smoking Status: Former smoker Past Alcohol Use History: None Reported, Rare Past Drug Use History: None Reported - Past Family History Father History Unknown: Yes General Exam Limitations: no limitations General appearance: alert, in no apparent distress Head exam: Present: atraumatic, normocephalic, normal inspection Respiratory exam: Present: normal lung sounds bilaterally. Absent: respiratory distress, wheezes, rales, rhonchi, stridor Cardiovascular Exam: Present: regular rate, normal rhythm, normal heart sounds. Absent: systolic murmur, diastolic murmur, rubs, gallop, clicks Extremities exam: Present: other (Left hip there is mild tenderness patient does have good range of motion there is no shortening or rotation neurovascular intact no tenderness distal of the left hip) Back exam: Present: full ROM. Absent: tenderness, paraspinal tenderness, vertebral tenderness Neurological exam: Present: alert, oriented X3, CN II-XII intact, reflexes normal. Absent: motor sensory deficit Skin exam: Present: warm, dry, intact, normal color. Absent: rash Course Vital Signs 07/01/18 08:38 Temperature 97.6 F Pulse Rate 71 Respiratory 18 Rate Blood Pressure 124/75 O2 Sat by Pulse 95 Oximetry - Reevaluation(s) Reevaluation #1: 07/01/18 10:24 Patient able to ambulate. Medical Decision Making - Medical Decision Making 67-year-old male presented for mechanical fall. X-rays are obtained which show no acute fracture. Patient was able to ambulate here with no discomfort to the left hip. Patient be discharged return parameters were discussed. Disposition Clinical Impression: Fall, Contusion, hip Disposition: HOME SELF-CARE Condition: Stable Instructions (If sedation given, give patient instructions): Contusion in Adults (ED) Additional Instructions: Please return to the Emergency Department if symptoms worsen or any other concerns. Is patient prescribed a controlled substance at d/c from ED?: No Referrals: Edmund Huynh MD [Primary Care Provider] - 1-2 days Time of Disposition: 10:26
[2018-07-01 11:51] VITALS: BP 118/71; PULSE 71; TEMP 97.8
== END 2018-07-01 11:51 | disposition home or self-care (01) ==
LOC: SUPCPDRO 08:36 → EC 08:36
DX: S70.02XA Contusion of left hip, initial encounter (principal); I69.398 Other sequelae of cerebral infarction; R26.2 Difficulty in walking, not elsewhere classified; E78.5 Hyperlipidemia, unspecified; I10 Essential (primary) hypertension; N42.9 Disorder of prostate, unspecified; G31.84 Mild cognitive impairment of uncertain or unknown etiology; Z87.891 Personal history of nicotine dependence; Z79.1 Long term (current) use of non-steroidal anti-inflammatories (NSAID); Z79.899 Other long term (current) drug therapy; W01.0XXA Fall on same level from slipping, tripping and stumbling without subsequent striking against object, initial encounter; Y93.01 Activity, walking, marching and hiking; Y92.009 Unspecified place in unspecified non-institutional (private) residence as the place of occurrence of the external cause
CPT/HCPCS: 73502; 99283

== ENCOUNTER → 2018-07-27 | Outpatient (CLI) | payer MEDICARE, OTHER ==
--- NOTE | 2018-07-27 11:32 | XR ---
EXAMINATION TYPE: XR chest 2V DATE OF EXAM: 07/27/2018 COMPARISON: 12/10/2017 HISTORY: Shortness of breath TECHNIQUE: Frontal and lateral views of the chest are obtained. FINDINGS: Scattered senescent parenchymal changes noted. Hyperinflation compatible with COPD. No evidence for infiltrate. No evidence for atelectasis. Heart size is stable. Mediastinal structures are stable and grossly unremarkable. No evidence for hilar prominence. Degenerative changes dorsal spine. IMPRESSION: 1. No evidence for acute pulmonary disease.
== END | disposition home or self-care (01) ==
LOC: RADXRMAIN 10:35
PROVIDERS: ATTEND Family Medicine
DX: I50.9 Heart failure, unspecified (principal)
CPT/HCPCS: 71046

== ENCOUNTER 2018-08-09 09:39 | Inpatient (IN) | payer MEDICARE, OTHER ==
[2018-08-09 09:58] LABS: Glucose,Whole Blood 96 mg/dL (75-99)
[2018-08-09 10:23] LABS: Basophils % (A) 0 %; Eosinophils % (A) 1 %; HCT 46.7 % (39.0-53.0); HGB 15.5 gm/dL (13.0-17.5); Lymphocytes # (A) 1.1 k/uL (1.0-4.8); Lymphocytes % (A) 14 %; MCH 29.8 pg (25.0-35.0); MCHC 33.1 g/dL (31.0-37.0); Mean Platelet Volume 7.1; Monocytes # (A) 0.4 k/uL (0-1.0); Monocytes % (A) 5 %; Neutrophils # (A) 6.2 k/uL (1.3-7.7); Neutrophils % (A) 79 %; Platelet Count 217 k/uL (150-450); RBC 5.19 m/uL (4.30-5.90); RDW 12.9 % (11.5-15.5); WBC 7.9 k/uL (3.8-10.6)
--- NOTE | 2018-08-09 10:26 | XR ---
EXAMINATION TYPE: XR pelvis AP view DATE OF EXAM: 08/09/2018 CLINICAL HISTORY: Fall injury with pain. TECHNIQUE: A single AP view of the pelvis is obtained. COMPARISON: Pelvic x-ray July 01, 2018 FINDINGS: Osseous structures are redemonstrated demineralized. There is no acute fracture/dislocatio n evident in the pelvis. Metallic hardware from right hip surgery is partially imaged. Sacroiliac shasta nts are stable and maintained. Numerous clips overlie the left pelvis similar to prior. Pubic symphys is is intact. IMPRESSION: There is no acute fracture or dislocation in the pelvis.
--- NOTE | 2018-08-09 10:26 | XR ---
EXAMINATION TYPE: XR chest 1V DATE OF EXAM: 08/09/2018 COMPARISON: Chest x-ray July 27, 2018. HISTORY: Strokelike symptoms and weakness. TECHNIQUE: Single frontal view of the chest is obtained. FINDINGS: There is lateral left basilar linear scarring and/or atelectasis redemonstrated. There is n o new suspicious focal air space opacity, pleural effusion, or pneumothorax seen. The cardiac silhou ette size is stable and within normal limits. The osseous structures are intact. IMPRESSION: No new acute pulmonary process.
--- NOTE | 2018-08-09 10:28 | CT ---
EXAMINATION TYPE: CT brain wo con DATE OF EXAM: 08/09/2018 HISTORY: Neuro deficits. History of prior stroke. CT DLP: 1144 mGycm. Automated Exposure Control for Dose Reduction was Utilized. TECHNIQUE: CT scan of the head is performed without contrast. COMPARISON: CT brain December 10, 2017. FINDINGS: There is no acute intracranial hemorrhage or midline shift identified. There is diffuse v entricular and sulcal prominence consistent with diffuse age-related cerebral atrophy. There is low- attenuation in the periventricular white matter consistent with chronic small vessel ischemic change. Old infarct left frontal parietal region with ex vacuo dilatation left ventricular system and the MC A distribution is redemonstrated. The globes are intact and the visualized sinuses are clear. New s mall left os acetabuli scalp hematoma axial image 45. IMPRESSION: No acute intracranial hemorrhage or midline shift. There is mild to moderate diffuse ag e-related cerebral atrophy and chronic small vessel ischemic change along with old left MCA distribut ion infarct all redemonstrated. No significant change from prior.
[2018-08-09 10:39] LABS: ALT 16 U/L (21-72); AST 26 U/L (17-59); African American GFR (CKD) >90 (>60 ml/min/1.73 sqM); Albumin 4.7 g/dL (3.5-5.0); Alkaline Phosphatase 82 U/L (38-126); Anion Gap 10 mmol/L; Blood Urea Nitrogen 16 mg/dL (9-20); Calcium 9.9 mg/dL (8.4-10.2); Carbon Dioxide 26 mmol/L (22-30); Chloride 105 mmol/L (98-107); Glucose 98 mg/dL (74-99); Partial Thromboplastin Time 23.6 sec (22.0-30.0); Potassium 4.6 mmol/L (3.5-5.1); Prothrombin Time 10.5 sec (9.0-12.0); Sodium 141 mmol/L (137-145); Total Bilirubin 1.9 mg/dL (0.2-1.3); Total Protein 7.7 g/dL (6.3-8.2)
--- NOTE | 2018-08-09 10:49 | ED ---
General Adult HPI - General Chief complaint: Weakness Stated complaint: Fall, weakness Time Seen by Provider: 08/09/18 09:46 Source: patient, EMS Mode of arrival: EMS Limitations: physical limitation - History of Present Illness Initial comments: Dictation was produced using [employer] dictation software. please excuse any grammatical, word or spelling errors. Chief Complaint: 67-year-old male transferred from assisted-living facility for fall presents with strokelike symptoms. History of Present Illness: Patient is 67-year-old male. Patient has history of CVA with residual right-sided deficits. Patient reports that 2 hours prior to arrival he fell. States that she has worsening right lower extremity and right-sided weakness. Patient has a history of residual weakness in that area. There is no family to suggest if this is patient's baseline. EMS reports that assisted living facility staff was concerned about worsening right-sided symptoms. Patient is also history of dementia and aphasia. Vision is an unre liable historian. Unable to obtain secondary to mental status. PHYSICAL EXAM: General Impression: Alert and oriented x2, not in acute distress HEENT: Normocephalic atraumatic, extra-ocular movements intact, pupils equal and reactive to light bilaterally, mucous membranes moist. Cardiovascular: Heart regular rate and rhythm, S1&S2 audible, no murmurs, rubs or gallops Chest: Lungs clear to auscultation bilaterally, no rhonchi, no wheeze, no rales Abdomen: Bowel sounds present, abdomen soft, non-tender, non-distended, no organomegaly Musculoskeletal: Pulses present and equal in all extremities, no peripheral edema Motor: no focal deficits noted Neurological: Right upper extremity contracture, mild effort against gravity however unable to lift right lower extremity, follows commands, and oriented 2 out of 4. A physical Skin: Intact with no visualized rashes Psych: Calm ED course: 67-year-old male presents via EMS from assisted-living facility for fall and concern of worsening residual symptoms suffer from previous CVA. Upon arrival are within acceptable limits. Patient initial NIH was 8 however unknown baseline neurologic status. Patient allegedly has residual right-sided deficit. It is unclear with patient's baseline neuro status is. Given patient is a poor historian and there is a lack of good history taking and unknown baseline mental status construct was activated. Patient not TPA candidate. Discussed patient case with Dr. Anne who agrees. Laboratory evaluation obtained CBC, coag panel, metabolic panel is unremarkable. Cardiac enzymes negative. Chest x-ray shows no acute processes. Brain CT shows no acute processes. There is redemonstration of old left MCA distribution infarct. CT angiogram of the head was obtained showing no acute processes. There is completely occluded left internal carotid artery redemonstration. Given the patient fell pelvis x-ray was also obtained showing no acute fracture dislocation pelvis. At this point there is no clear source of patient's symptoms. Discussed patient case with PCP reports that patient has residual right-sided deficit. He reports that patient can normally ambulate however with difficulties. Patient was found to have mild aphasia and had difficulties with word finding and identify objects. The observed aphasia is no when discussed with primary care physician. Spinal have patient admitted to the hospital with consultation to neurology. EKG interpretation: Ventricular rate 71, normal sinus rhythm,. Interval 196, QS 90, QTc 412. No [place] prolongation, no QTC prolongation, no ST or T-wave changes noted. Overall, this EKG is unremarkable - Related Data Home Medications Medication Instructions Recorded Confirmed Donepezil [Aricept] 10 mg PO DAILY 12/10/17 08/09/18 Folic Acid 1 mg PO DAILY 12/10/17 08/09/18 Memantine [Namenda] 5 mg PO DAILY 12/10/17 08/09/18 Rosuvastatin [Crestor] 20 mg PO HS 12/10/17 08/09/18 Tamsulosin HCl [Flomax] 0.4 mg PO DAILY 12/10/17 08/09/18 amLODIPine [Norvasc] 10 mg PO DAILY 12/10/17 08/09/18 Furosemide [Lasix] 10 mg PO DAILY 08/09/18 08/09/18 LORazepam [Ativan] 1 mg PO BID PRN 08/09/18 08/09/18 Allergies Allergy/AdvReac Type Severity Reaction Status Date / Time No Known Allergies Allergy Verified 08/09/18 10:24 Review of Systems ROS Statement: Those systems with pertinent positive or pertinent negative responses have been documented in the HPI. ROS Other: All systems not noted in ROS Statement are negative. 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 pt has difficulties with memory impairment and expressive aphasia as well. History of Any Multi-Drug Resistant Organisms: None Reported Past Surgical History: No Surgical Hx Reported Past Anesthesia/Blood Transfusion Reactions: No Reported Reaction Past Psychological History: No Psychological Hx Reported Smoking Status: Former smoker Past Alcohol Use History: None Reported, Rare Past Drug Use History: None Reported - Past Family History Father History Unknown: Yes General Exam Limitations: physical limitation Course Vital Signs 08/09/18 08/09/18 09:41 10:00 Temperature 98 F Pulse Rate 75 72 Respiratory 18 18 Rate Blood Pressure 122/74 116/68 O2 Sat by Pulse 98 99 Oximetry Medical Decision Making - Lab Data Result diagrams: 08/09/18 09:49 08/09/18 09:49 Lab Results 08/09/18 08/09/18 08/09/18 Range/Units 09:49 09:49 09:49 WBC 7.9 (3.8-10.6) k/uL RBC 5.19 (4.30-5.90) m/uL Hgb 15.5 (13.0-17.5) gm/dL Hct 46.7 (39.0-53.0) % MCV 90.0 (80.0-100.0) fL MCH 29.8 (25.0-35.0) pg MCHC 33.1 (31.0-37.0) g/dL RDW 12.9 (11.5-15.5) % Plt Count 217 (150-450) k/uL Neutrophils % 79 % Lymphocytes % 14 % Monocytes % 5 % Eosinophils % 1 % Basophils % 0 % Neutrophils # 6.2 (1.3-7.7) k/uL Lymphocytes # 1.1 (1.0-4.8) k/uL Monocytes # 0.4 (0-1.0) k/uL Eosinophils # 0.0 (0-0.7) k/uL Basophils # 0.0 (0-0.2) k/uL PT 10.5 (9.0-12.0) sec INR 1.0 (<1.2) APTT 23.6 (22.0-30.0) sec Sodium 141 (137-145) mmol/L Potassium 4.6 (3.5-5.1) mmol/L Chloride 105 (98-107) mmol/L Carbon Dioxide 26 (22-30) mmol/L Anion Gap 10 mmol/L BUN 16 (9-20) mg/dL Creatinine 0.80 (0.66-1.25) mg/dL Est GFR (CKD-EPI)AfAm >90 (>60 ml/min/1.73 sqM) Est GFR (CKD-EPI)NonAf >90 (>60 ml/min/1.73 sqM) Glucose 98 (74-99) mg/dL POC Glucose (mg/dL) (75-99) mg/dL POC Glu Termination Clerk ID Calcium 9.9 (8.4-10.2) mg/dL Total Bilirubin 1.9 H (0.2-1.3) mg/dL AST 26 (17-59) U/L ALT 16 L (21-72) U/L Alkaline Phosphatase 82 (38-126) U/L Troponin I (0.000-0.034) ng/mL Total Protein 7.7 (6.3-8.2) g/dL Albumin 4.7 (3.5-5.0) g/dL 08/09/18 08/09/18 Range/Units 09:49 09:56 WBC (3.8-10.6) k/uL RBC (4.30-5.90) m/uL Hgb (13.0-17.5) gm/dL Hct (39.0-53.0) % MCV (80.0-100.0) fL MCH (25.0-35.0) pg MCHC (31.0-37.0) g/dL RDW (11.5-15.5) % Plt Count (150-450) k/uL Neutrophils % % Lymphocytes % % Monocytes % % Eosinophils % % Basophils % % Neutrophils # (1.3-7.7) k/uL Lymphocytes # (1.0-4.8) k/uL Monocytes # (0-1.0) k/uL Eosinophils # (0-0.7) k/uL Basophils # (0-0.2) k/uL PT (9.0-12.0) sec INR (<1.2) APTT (22.0-30.0) sec Sodium (137-145) mmol/L Potassium (3.5-5.1) mmol/L Chloride (98-107) mmol/L Carbon Dioxide (22-30) mmol/L Anion Gap mmol/L BUN (9-20) mg/dL Creatinine (0.66-1.25) mg/dL Est GFR (CKD-EPI)AfAm (>60 ml/min/1.73 sqM) Est GFR (CKD-EPI)NonAf (>60 ml/min/1.73 sqM) Glucose (74-99) mg/dL POC Glucose (mg/dL) 96 (75-99) mg/dL POC Glu Termination Clerk ID Vin Chen Calcium (8.4-10.2) mg/dL Total Bilirubin (0.2-1.3) mg/dL AST (17-59) U/L ALT (21-72) U/L Alkaline Phosphatase (38-126) U/L Troponin I <0.012 (0.000-0.034) ng/mL Total Protein (6.3-8.2) g/dL Albumin (3.5-5.0) g/dL Disposition Clinical Impression: Neurological deficit present Disposition: ADMITTED IP TO THIS HOSP Condition: Fair Referrals: Edmund Huynh MD [Primary Care Provider] - 1-2 days Decision Time: 13:29
--- NOTE | 2018-08-09 11:03 | CT ---
EXAMINATION TYPE: CT angio head neck DATE OF EXAM: 08/09/2018 HISTORY: Neurodeficits. Code stroke. Acute onset confusion. COMPARISON: Carotid ultrasound December 11, 2017 Automated Exposure Control for Dose Reduction was Utilized. TECHNIQUE: CTA scan of the head and neck are performed with IV Contrast, patient injected with 100 m L of Isovue 300, axial images are obtained, coronal and sagittal reformatted images are reviewed. Thr ee-D reconstructed images are created on an independent workstation and reviewed. FINDINGS: Carotid/Vascular Structures: No significant plaque at aortic arch. There is normal three-vessel origi n from aortic arch without significant plaque or stenosis. Right common carotid artery shows normal o rigin from the right brachiocephalic artery. There is artifact obscuring detail at right carotid bulb making evaluation at this level suboptimal. Remainder of right internal carotid artery shows mild to moderate calcified plaque supraclinoid segment without significant stenosis. Visualized portion of r ight common carotid artery shows no significant plaque or stenosis. Majority of left common carotid artery shows no significant plaque or stenosis. Motion artifact at ca rotid bulb makes evaluation suboptimal there is complete occlusion of the left internal carotid arter y near its origin which correlates with prior ultrasound. Suboptimal evaluation external carotid reed aime bilaterally at their origin noted. There is dominant left vertebral artery. There is hypoplastic or occluded distal right vertebral reed ry. Left vertebral artery is patent to basilar artery which is tortuous course. There is hypoplastic right P1 segment with filling of P2 segment due to patent posterior communicating artery. There is hy poplastic left posterior communicating artery. There is no aneurysmal change in the posterior circula tion. Images of the anterior circulation show filling of left A1 and M1 segments due to communicating arteries. Patent anterior communicating artery is present. There is no or aneurysmal change seen. Le ft M1 and M2 segment are diminished in caliber versus opposite right side. Other: Moderate multilevel spurring and disc space narrowing in the cervical spine is seen with sligh t levoconvex scoliotic curvature centered in the upper thoracic spine. Thyroid nodularity is evident including greater than 1 cm left thyroid nodule axial image 19 IMPRESSION: 1. No aneurysmal change at level of [place]. 2. Suboptimal essentially nondiagnostic study at level of carotid bulbs. Completely occluded left int ernal carotid artery redemonstrated.
[2018-08-09] MEDS ORDERED: NALOXONE 0.4 MG/ML 1 ML VIAL IV PRN (13:21)
[2018-08-09] MEDS ORDERED: ACETAMINOPHEN TAB 325 MG TAB PO PRN (13:21)
[2018-08-09] MEDS ORDERED: ONDANSETRON 4 MG/2 ML VIAL IVP PRN (13:21)
[2018-08-09] MEDS ORDERED: ASPIRIN 81 MG PO STA (13:28)
[2018-08-09] MEDS: SODIUM CHLORIDE 0.9% 1,000 ML IV SCH (13:44)
[2018-08-09 16:18] VITALS: BMI 25.8
--- NOTE | 2018-08-09 16:37 | P.CNNES ---
History of Present Illness Consult date: 08/09/18 Reason for Consult: ? Encephalopathy/stroke History of Present Illness: Patient is a 67 years old male who has history of left MCA territory stroke due to left ICA occlusion, with residual right hemiparesis, and some expressive aphasia. Patient apparently not on any antiplatelet medication at home. Patient lives in an apartment on his own. He does have a son and a grandson. Patient fell in the shower. He states that he slipped. It was reported in the ER the patient has worsening of his baseline weakness. Stroke code was initiated. Patient had computed tomography scan of the head, which revealed no acute intracranial process. There is mild to moderate diffuse age-related cerebral atrophy and chronic small vessel ischemic change. Old left MCA territory infarct. CTA of head and neck was done, which revealed no aneurysmal change at the level of [place]. Suboptimal, essentially nondiagnostic study at level of carotid bulbs. ED physician spoke to the stroke neurologist Dr. Nino, who did not feel patient was candidate for TPA. Completely occluded left ICA redemonstrated. Chest x-ray normal, EKG shows normal sinus rhythm. Patient's blood test shows normal Chem-7, CBC PT/PTT and liver panel. Patient's lipid panel from 12/10/2017 showed normal cholesterol 107, LDL 42, HDL 44. TSH 1.4. Patient was seen in the ER. Patient states that he is back to baseline. He denies any new numbness tingling weakness. He is very pleasant. Patient was a light smoker, never been a heavy smoker, and and did not smoke since his stroke. Patient currently not on any antiplatelet medication as per his home medication list. Review of Systems Denies headache, problem with the vision, double vision, chest pain, shortness of breath, wheezing. Abdominal pain. Denies nausea vomiting diarrhea. 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 pt has difficulties with memory impairment and expressive aphasia as well. History of Any Multi-Drug Resistant Organisms: None Reported Past Surgical History: No Surgical Hx Reported Past Anesthesia/Blood Transfusion Reactions: No Reported Reaction Past Psychological History: No Psychological Hx Reported Smoking Status: Former smoker Past Alcohol Use History: None Reported, Rare Past Drug Use History: None Reported - Past Family History Father History Unknown: Yes Medications and Allergies Home Medications Medication Instructions Recorded Confirmed Type Donepezil [Aricept] 10 mg PO DAILY 12/10/17 08/09/18 History Folic Acid 1 mg PO DAILY 12/10/17 08/09/18 History Memantine [Namenda] 5 mg PO DAILY 12/10/17 08/09/18 History Rosuvastatin [Crestor] 20 mg PO HS 12/10/17 08/09/18 History Tamsulosin HCl [Flomax] 0.4 mg PO DAILY 12/10/17 08/09/18 History amLODIPine [Norvasc] 10 mg PO DAILY 12/10/17 08/09/18 History Furosemide [Lasix] 10 mg PO DAILY 08/09/18 08/09/18 History LORazepam [Ativan] 1 mg PO BID PRN 08/09/18 08/09/18 History Allergies Allergy/AdvReac Type Severity Reaction Status Date / Time No Known Allergies Allergy Verified 08/09/18 10:24 Physical Examination - Vital Signs Vital Signs: Vital Signs Temp Pulse Resp BP Pulse Ox 08/09/18 13:30 78 12 117/73 95 08/09/18 13:00 64 16 130/73 94 L 08/09/18 12:30 65 18 122/71 94 L 08/09/18 12:00 61 20 124/79 94 L 08/09/18 11:30 65 15 114/70 94 L 08/09/18 11:00 67 16 111/68 95 08/09/18 10:30 62 12 95 08/09/18 10:00 72 14 119/71 97 08/09/18 09:42 96 08/09/18 09:41 98 F 75 18 122/74 98 Intake and Output 08/09/18 08/09/18 08/09/18 06:59 14:59 22:59 Other: Weight 81.647 kg On examination patient is an elderly male, very pleasant, in no acute distress. Patient is alert and awake. He has some expressive aphasia, word finding problem. Patient could not tell the current month or the year. He states he used to live in [place], but now lives in----, could not come up with the name of the city until patient was given some choices and states "I think in [place]". Patient could not come up with the name of the state until he was given some choices then he said the right state. He has very mild dysarthria. Some expressive aphasia. He can name simple objects very well. Can repeat. On cranial nerve examination his pupils are round and reactive visual abreu are full. He has mild right facial asymmetry and tongue protrudes the midline. On muscle strength testing the strength is normal in the left arm and left leg. On the right side, his deltoid is 5, biceps 5, triceps 4+5-, pretzel cooker 4+, finger extension 0, and his hand is in the tight pretzel cooker. In the lower extremity hip flexion 5, knee extension 5, ankle dorsiflexion 4+, toe extension 4. Reflexes are brisker on the right and plantar is up on the right side. Sensory to touch is equal. Patient is ataxic for [id number] on the right. Patient is spastic on the right side. Gait deferred. Results - Laboratory Findings CBC and BMP: 08/09/18 09:49 08/09/18 09:49 Abnormal Lab Findings: Abnormal Labs 08/09/18 09:49 Total Bilirubin 1.9 H ALT 16 L Assessment and Plan Assessment: * Status post fall due to slipping while taking shower. Patient's neurological examination is back to baseline. Patient denies any worsening of his baseline weakness/right hemiparesis. Rule out TIA. * History of left MCA territory stroke due to left ICA occlusion, with residual right hemiparesis and mild expressive aphasia. * Chronic left ICA occlusion. Plan: * Patient's neurological examination is at baseline. Patient denies any worsening of his baseline right hemiparesis and expressive aphasia at this point. * We will start patient on aspirin 325 mg daily for stroke prevention. * Patient's lipid panel from 12/10/2017 shows normal cholesterol 107, LDL 42, HDL 44. Patient will be continued on Crestor 20 mg daily. * We will check EEG to rule out any epileptiform activity. * We will check hemoglobin A1c. * PT OT evaluate gait and for home safety.
[2018-08-09] MEDS ORDERED: ATORVASTATIN 40 MG TAB PO SCH (21:00)
[2018-08-09 21:09] LABS: Appearance,Urine Cloudy (Clear); Bacteria,Urine Many /hpf; Bilirubin,Urine Negative (Negative); Blood,Urine Negative (Negative); Color,Urine Yellow; Glucose,Urine (UA) Negative (Negative); Hyaline Casts,Urine 3 /lpf (0-2); Ketones,Urine 1+ (Negative); Leukocyte Esterase,Urine Moderate (Negative); Mucus,Urine Moderate /hpf; Nitrite,Urine Positive (Negative); PH, Urine 6.5 (5.0-8.0); Protein,Urine Trace (Negative); RBC,Urine 3 /hpf (0-5); Specific Gravity,Urine 1.034 (1.001-1.035); WBC,Urine 83 /hpf (0-5)
[2018-08-09] MEDS: amLODIPine 5 MG TAB PO SCH (21:16)
[2018-08-10 04:09] LABS: Hemoglobin A1C 5.2 % (4.0-6.0)
[2018-08-10] MEDS ORDERED: PANTOPRAZOLE 40 MG TABLET PO SCH (07:30)
[2018-08-10 08:06] VITALS: TEMP 97.9
[2018-08-10] MEDS: amLODIPine 5 MG TAB PO SCH (08:14)
[2018-08-10] MEDS ORDERED: TAMSULOSIN 0.4 MG CAP.ER.24H PO SCH (08:30)
[2018-08-10] MEDS ORDERED: DONEPEZIL 10 MG TAB PO SCH (09:00)
[2018-08-10] MEDS ORDERED: MEMANTINE 5 MG TAB PO SCH (09:00)
[2018-08-10] MEDS ORDERED: FOLIC ACID 1 MG TAB PO SCH (09:00)
[2018-08-10] MEDS ORDERED: FUROSEMIDE 20 MG TAB PO SCH (09:00)
[2018-08-10] MEDS ORDERED: ASPIRIN 325 MG TAB PO SCH (09:00)
[2018-08-10 11:31] VITALS: RESP 16
--- NOTE | 2018-08-10 14:49 | P.HPIM ---
History of Present Illness H&P Date: 08/09/18 Chief Complaint: Fall and strokelike symptoms This is a 67-year-old male with prior history of for right-sided weakness due to left hemispheric infarct she is a resident of extended care facility 2 hours before coming to emergency department he had a fall with somewhat worsening of right-sided weakness and the strength, EMS brought into hospital for further evaluation baseline dysphagia and dementia is present as well history is unreliable and is being eval and by neurology service, patient seen and evaluated in emergency department while covering for Dr. Edmund Huynh Patient had computed tomography scan of the head, which revealed no acute intracranial process. There is mild to moderate diffuse age-related cerebral atrophy and chronic small vessel ischemic change. Old left MCA territory infarct. CTA of head and neck was done, which revealed no aneurysmal change at the level of [place]. Suboptimal, essentially nondiagnostic study at level of carotid bulbs. ED physician spoke to the stroke neurologist Dr. Nino, who did not feel patient was candidate for TPA. Completely occluded left ICA redemonstrated. Chest x-ray normal, EKG shows normal sinus rhythm. Patient's blood test shows normal Chem-7, CBC PT/PTT and liver panel. Patient's lipid panel from 12/10/2017 showed normal cholesterol 107, LDL 42, HDL 44. TSH 1.4. Patient was seen in the ER. Patient states that he is back to baseline. He denies any new numbness tingling weakness. He is very pleasant. Patient was a light smoker, never been a heavy smoker, and and did not smoke since his stroke. Review of Systems All systems: negative Past Medical History Past Medical History: CVA/TIA, Hyperlipidemia, Hypertension, Memory Impairment, Prostate Disorder Additional Past Medical History / Comment(s): CVA -pt unsure of year - residual right sided deficits with right foot droop. pt has difficulties with memory impairment and expressive aphasia as well. History of Any Multi-Drug Resistant Organisms: None Reported Past Surgical History: No Surgical Hx Reported Past Anesthesia/Blood Transfusion Reactions: No Reported Reaction Past Psychological History: No Psychological Hx Reported Smoking Status: Former smoker Past Alcohol Use History: None Reported, Rare Past Drug Use History: None Reported - Past Family History Father History Unknown: Yes Medications and Allergies Home Medications Medication Instructions Recorded Confirmed Type Donepezil [Aricept] 10 mg PO DAILY 12/10/17 08/09/18 History Folic Acid 1 mg PO DAILY 12/10/17 08/09/18 History Memantine [Namenda] 5 mg PO DAILY 12/10/17 08/09/18 History Rosuvastatin [Crestor] 20 mg PO HS 12/10/17 08/09/18 History Tamsulosin HCl [Flomax] 0.4 mg PO DAILY 12/10/17 08/09/18 History amLODIPine [Norvasc] 10 mg PO DAILY 12/10/17 08/09/18 History Furosemide [Lasix] 10 mg PO DAILY 08/09/18 08/09/18 History LORazepam [Ativan] 1 mg PO BID PRN 08/09/18 08/09/18 History Allergies Allergy/AdvReac Type Severity Reaction Status Date / Time No Known Allergies Allergy Verified 08/09/18 10:24 Physical Exam Vitals: Vital Signs Temp Pulse Pulse Resp BP BP Pulse Ox 08/09/18 16:00 97.4 F L 61 16 107/87 95 08/09/18 15:37 98.0 F 68 16 107/87 95 08/09/18 13:30 78 12 117/73 95 08/09/18 13:00 64 16 130/73 94 L 08/09/18 12:30 65 18 122/71 94 L 08/09/18 12:00 61 20 124/79 94 L 08/09/18 11:30 65 15 114/70 94 L 08/09/18 11:00 67 16 111/68 95 08/09/18 10:30 62 12 95 08/09/18 10:00 72 14 119/71 97 08/09/18 09:42 96 08/09/18 09:41 98 F 75 18 122/74 98 Intake and Output 08/09/18 08/09/18 08/09/18 06:59 14:59 22:59 Other: Weight 81.647 kg - Constitutional General appearance: average body habitus, cooperative, disheveled, mild distress - EENT Eyes: anicteric sclerae, EOMI, PERRLA, normal appearance Ears: bilateral: normal - Neck Carotids: bilateral: upstroke normal - Respiratory Respiratory: bilateral: CTA - Cardiovascular Rhythm: regular Heart sounds: normal: S1, S2 - Gastrointestinal General gastrointestinal: normal bowel sounds, soft - Neurologic Neurologic: CNII-XII intact - Musculoskeletal Musculoskeletal: generalized weakness, right sided weakness - Psychiatric Psychiatric: A&O x's 3, appropriate affect, intact judgment & insight Results CBC & Chem 7: 08/09/18 09:49 08/09/18 09:49 Labs: Abnormal Lab Results - Last 24 Hours (Table) 08/09/18 Range/Units 09:49 Total Bilirubin 1.9 H (0.2-1.3) mg/dL ALT 16 L (21-72) U/L Chest x-ray: report reviewed, image reviewed CT Scan - head: report reviewed, image reviewed Thrombosis Risk Factor Assmnt - Choose All That Apply Each Factor Represents 1 point: Obesity (BMI >25) Each Risk Factor Represents 3 Points: Family history of DVT/PE Thrombosis Risk Factor Assessment Total Risk Factor Score: 4 Thrombosis Risk Factor Assessment Level: Moderate Risk Assessment and Plan Assessment: Status post fall Right-sided weakness TIA Left middle cerebral artery infarct old Residual residual right hemiparesis with expressive aphasia Chronic left ICA occlusion Plan: Neurology consultation Neuro checks Repeat CT and cerebral angiogram tomorrow Continue home medicine Antiplatelet agent can be considered outpatient basis Further recommendations pending plan of care as per clinical response of the patient Time with Patient: Greater than 30
--- NOTE | 2018-08-10 14:54 | P.PN ---
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, right hemiparesis, expressive aphasia, chronic left internal carotid artery oc clusion, dyslipidemia, a potential hypertensive cardiovascular disease, dementia, benign prostatic hypertrophy, 08/10/2018, patient seen eval reexamined during the rounds overall remains stable patient has been evaluated by neurology results of the CT angiogram and repeat CT has been reviewed given the stability of the condition patient will be discharged later on today This is a 67-year-old male with prior history of for right-sided weakness due to left hemispheric infarct she is a resident of [facility] 2 hours before coming to emergency department he had a fall with somewhat worsening of right-sided weakness and the strength, EMS brought into hospital for further evaluation baseline dysphagia and dementia is present as well history is unreliable and is being eval and by neurology service, patient seen and evaluated in emergency department while covering for Dr. Edmund Huynh Patient had computed tomography scan of the head, which revealed no acute intracranial process. There is mild to moderate diffuse age-related cerebral atrophy and chronic small vessel ischemic change. Old left MCA territory infarct. CTA of head and neck was done, which revealed no aneurysmal change at the level of [place]. Suboptimal, essentially nondiagnostic study at level of carotid bulbs. ED physician spoke to the stroke neurologist Dr. Nino, who did not feel patient was candidate for TPA. Completely occluded left ICA redemonstrated. Chest x-ray normal, EKG shows normal sinus rhythm. Patient's blood test shows normal Chem-7, CBC PT/PTT and liver panel. Patient's lipid panel from 12/10/2017 showed normal cholesterol 107, LDL 42, HDL 44. TSH 1.4. Patient was seen in the ER. Patient states that he is back to baseline. He denies any new numbness tingling weakness. He is very pleasant. Patient was a light smoker, never been a heavy smoker, and and did not smoke since his stroke. Objective - Vital Signs Vital signs: Vital Signs Temp 97.9 F 08/10/18 08:00 Pulse 69 08/10/18 11:30 Resp 16 08/10/18 11:30 BP 108/57 08/10/18 11:30 Pulse Ox 94 L 08/10/18 11:30 Intake & Output 08/09/18 08/10/18 08/10/18 18:59 06:59 18:59 Intake Total 240 Output Total 240 Balance 0 Weight 81.647 kg 86 kg Intake: Oral 240 Output: Urine 240 Other: Voiding Method Urinal Urinal # Voids 1 - Exam - Constitutional General appearance: average body habitus, cooperative, disheveled, mild distress - EENT Eyes: anicteric sclerae, EOMI, PERRLA, normal appearance Ears: bilateral: normal - Neck Carotids: bilateral: upstroke normal - Respiratory Respiratory: bilateral: CTA - Cardiovascular Rhythm: regular Heart sounds: normal: S1, S2 - Gastrointestinal General gastrointestinal: normal bowel sounds, soft - Neurologic Neurologic: CNII-XII intact - Musculoskeletal Musculoskeletal: generalized weakness, right sided weakness - Psychiatric Psychiatric: A&O x's 3, appropriate affect, intact judgment & insight - Labs CBC & Chem 7: 08/09/18 09:49 08/09/18 09:49 Labs: Abnormal Lab Results - Last 24 Hours (Table) 08/09/18 Range/Units 20:50 Urine Protein Trace H (Negative) Urine Ketones 1+ H (Negative) Ur Leukocyte Esterase Moderate H (Negative) Urine WBC 83 H (0-5) /hpf Urine Bacteria Many H (None) /hpf Hyaline Casts 3 H (0-2) /lpf Urine Mucus Moderate H (None) /hpf Assessment and Plan Assessment: Status post fall Right-sided weakness TIA Left middle cerebral artery infarct old Residual residual right hemiparesis with expressive aphasia Chronic left ICA occlusion Hypertension hypertensive cardiovascular disease Dyslipidemia Dementia Plan: Neurology consultation reports and results reviewed Neuro checks Repeat CT and cerebral angiogram reviewed Continue home medicine Antiplatelet agent can be considered outpatient basis Further recommendations pending plan of care as per clinical response of the patient, discharge later on today Time with Patient: Greater than 30
--- NOTE | 2018-08-10 14:56 | P.DS ---
Providers Date of admission: 08/09/18 13:21 Attending physician: Edmund Huynh Consults: 08/09/18 13:22 Consult Physician Routine Consulting Provider: Warren Perez Consult Reason/Comments: encephalopathy, stroke? Do you want consulting provider notified?: Yes Primary care physician: [facility] Course: See H&P and progress note Procedures: CT angiogram, chest x-ray, plain noncontrast brain CT, EKG, pelvic x-ray Patient Condition at Discharge: Fair Plan - Discharge Summary Discharge Rx Participant: No New Discharge Prescriptions: No Action amLODIPine [Norvasc] 10 mg PO DAILY Memantine [Namenda] 5 mg PO DAILY Folic Acid 1 mg PO DAILY Tamsulosin HCl [Flomax] 0.4 mg PO DAILY Rosuvastatin [Crestor] 20 mg PO HS Donepezil [Aricept] 10 mg PO DAILY Furosemide [Lasix] 10 mg PO DAILY LORazepam [Ativan] 1 mg PO BID PRN PRN Reason: Anxiety Discharge Medication List Donepezil [Aricept] 10 mg PO DAILY 12/10/17 [History] Folic Acid 1 mg PO DAILY 12/10/17 [History] Memantine [Namenda] 5 mg PO DAILY 12/10/17 [History] Rosuvastatin [Crestor] 20 mg PO HS 12/10/17 [History] Tamsulosin HCl [Flomax] 0.4 mg PO DAILY 12/10/17 [History] amLODIPine [Norvasc] 10 mg PO DAILY 12/10/17 [History] Furosemide [Lasix] 10 mg PO DAILY 08/09/18 [History] LORazepam [Ativan] 1 mg PO BID PRN 08/09/18 [History] Follow up Appointment(s)/Referral(s): Edmund Huynh MD [Primary Care Provider] - 1-2 days
[2018-08-10] MEDS: SODIUM CHLORIDE 0.9% 1,000 ML IV SCH (15:14)
--- NOTE | 2018-08-10 15:17 | EEG ---
ELECTROENCEPHALOGRAM REPORT DATE OF SERVICE: 08/10/2018 PREAMBLE: This is a 67-year-old male, who had history of a stroke, came to the hospital with a fall with weakness. Rule out TIA, rule out seizure activity. CURRENT MEDICATIONS: None listed. EEG FINDINGS: Routine 21 channel awake digital EEG recording was accomplished utilizing the 10/20 international system with bipolar and referential montages. The background consists of well-developed, well-regulated, moderate amplitude activity in 8-9 hertz alpha, seen better in the right hemispheric region. Background is posterior dominant and reactive to eye opening and closing. There is continuous. No new focal slowing in polymorphic delta and theta range in the left frontal temporal region. The intermittent left anterior temporal sharp-appearing waves were also seen. Different stages of sleep were not seen. Photic driving response was not seen. EKG rhythm leads revealed no obvious arrhythmia. IMPRESSION: A as this is an abnormal EEG due to the presence of near continuous focal slowing in polymorphic delta and theta activity in the left frontal temporal region, with occasional sharp-appearing waves in the left anterior temporal region. This is suggestive of focal cortical neural dysfunction with underlying cortical irritability and a possible tendency of seizures. Clinical correlation is strongly recommended. MMODL / IJN: [id number] /
[2018-08-10 15:47] VITALS: BP 111/58; PULSE 68
--- NOTE | 2018-08-10 16:58 | P.PN ---
Subjective Progress Note Date: 08/10/18 Patient denies any new symptoms, wants to go home. Patient again states that he just slipped and fell in the shower. He did not lose consciousness. He remembers all details. I reviewed the EMS flow sheet, and also mentioned that patient was found sitting in the shower, awake. Patient was fully alert. He was able to press help by his wristband life alert. I further spoke to patient's sister on the phone, who had spoken to the nurse, who also mentioned that patient was alert and awake with no signs of the seizure. Patient does not have any episodes. Patient's EEG showed left frontal temporal slowing with some sharp waves, suggestive of focal cortical neuronal dysfunction with cortical irritability and tendency for seizures. Patient however never had any clinical seizure. Patient's UA shows moderate leukocytes esterase, WBC 83 and many bacteria. Patient is being discharged on Levaquin. No clubbing A1c 5.2. Patient was not on any aspirin at home as per his sister also. Objective - Vital Signs Vital signs: Vital Signs Temp 97.9 F 08/10/18 08:00 Pulse 68 08/10/18 15:46 Resp 16 08/10/18 15:46 BP 111/58 08/10/18 15:46 Pulse Ox 94 L 08/10/18 15:46 Intake & Output 08/09/18 08/10/18 08/10/18 18:59 06:59 18:59 Intake Total 240 Output Total 240 Balance 0 Weight 81.647 kg 86 kg Intake: Oral 240 Output: Urine 240 Other: Voiding Method Urinal Urinal # Voids 2 - Exam Completely unchanged as compared to yesterday. - Labs CBC & Chem 7: 08/09/18 09:49 08/09/18 09:49 Labs: Abnormal Lab Results - Last 24 Hours (Table) 08/09/18 Range/Units 20:50 Urine Protein Trace H (Negative) Urine Ketones 1+ H (Negative) Ur Leukocyte Esterase Moderate H (Negative) Urine WBC 83 H (0-5) /hpf Urine Bacteria Many H (None) /hpf Hyaline Casts 3 H (0-2) /lpf Urine Mucus Moderate H (None) /hpf Assessment and Plan Assessment: * Status post fall due to slipping while taking shower. Patient's neurological examination is back to baseline. Patient denies any worsening of his baseline weakness/right hemiparesis. Rule out TIA. * History of left MCA territory stroke due to left ICA occlusion, with residual right hemiparesis and mild expressive aphasia. * Chronic left ICA occlusion. * Abnormal EEG. Plan: * Patient's neurological examination is at baseline. Patient denies any worsening of his baseline right hemiparesis and expressive aphasia at this point. Patient will start and continue aspirin 81 mg daily for stroke prevention. * Patient's lipid panel from 12/10/2017 shows normal cholesterol 107, LDL 42, HDL 44. Patient will be continued on Crestor 20 mg daily. * EEG showed left frontal temporal slowing with some sharp-appearing waves, suggestive of focal cortical dysfunction, with cortical irritability and tendency for seizures. I discussed with patient and his sister in detail. He never had any seizure. Therefore we will hold off on antiepileptic medication. However I educated patient and his sister about various type of seizures. If he has any clinical seizures, then he will be started on antiepileptic medication. Patient also declined to be on any medication at this time. * Patient is being discharged on Levaquin for possible UTI, which may be the cause of his encephalopathy. * Hemoglobin A1c normal 5.2. * PT OT evaluate gait and for home safety. * Clear for discharge, if cleared by PT OT.
--- NOTE | 2018-08-10 18:08 | ECHOF ---
Referral Reason:lv fx MEASUREMENTS -------- HEIGHT: 177.8 cm WEIGHT: 81.6 kg BP: 117/73 RVIDd: 3.0 cm (< 3.3) IVSd: 1.3 cm (0.6 - 1.1) LVIDd: 4.3 cm (3.9 - 5.3) LVPWd: 1.3 cm (0.6 - 1.1) IVSs: 1.5 cm LVIDs: 3.1 cm LVPWs: 1.4 cm LAESV Index (A-L): 22.26 ml/m Ao Diam: 2.7 cm (2.0 - 3.7) AV Cusp: 2.0 cm (1.5 - 2.6) LA Diam: 4.0 cm (2.7 - 3.8) EPSS: 1.3 cm MV E Chetan: 0.36 m/s MV DecT: 288 ms MV A [place]: 0.55 m/s MV E/A Ratio: 0.67 RAP: 5.00 mmHg RVSP: 16.43 mmHg MV EF SLOPE: 89.38 mm/s (70 - 150) MV EXCURSION: 1.64 cm (> 18.000) FINDINGS -------- Sinus rhythm. This was a technically adequate study. The left ventricular size is normal. There is mild concentric left ventricular hypertrophy. Overa ll left ventricular systolic function is low-normal with, an EF between 50 - 55 %. The right ventricle is normal in size. Left atrium is normal size by volume. The right atrial size is normal. Interatrial and interventricular septum intact. The aortic valve is trileaflet, and appears structurally normal. No aortic stenosis or regurgitation. The mitral valve leaflets are mildly thickened. There is trace mitral regurgitation. Mild tricuspid regurgitation present. There is no evidence of pulmonary hypertension. The right v entricular systolic pressure, as measured by Doppler, is 16.43mmHg. Trace/mild (physiologic) pulmonic regurgitation. The aortic root size is normal. Normal inferior vena cava with normal inspiratory collapse consistent with estimated right atrial pre ssure of 10 mmHg. There is a trivial pericardial effusion present. CONCLUSIONS -------- 1. Sinus rhythm. 2. This was a technically adequate study. 3. The left ventricular size is normal. 4. There is mild concentric left ventricular hypertrophy. 5. Overall left ventricular systolic function is low-normal with, an EF between 50 - 55 %. 6. Left atrium is normal size by volume. 7. The aortic valve is trileaflet, and appears structurally normal. No aortic stenosis or regurgitati on. 8. The mitral valve leaflets are mildly thickened. 9. There is trace mitral regurgitation. 10. Mild tricuspid regurgitation present. 11. There is no evidence of pulmonary hypertension. 12. Trace/mild (physiologic) pulmonic regurgitation. 13. There is a trivial pericardial effusion present. DIRECTOR OF ACADEMIC SUPPORT: Rachel Jerez RDCS
--- NOTE | 2018-08-13 10:08 | CDI ---
Documentation Clarification Form Date: [id number] From: Shayy Matute Phone: If you have a question regarding this query, please contact Yelena Trevizo at [phone] between 8am and 5pm. Admit Date: 08/09/2018 1:21:00 PM Patient Name: Eduardo Gillette Visit Number: [id number] Discharge Date: 08/10/2018 6:15:00 PM ATTENTION: The Clinical Documentation Specialists (CDI) and [facility] Coding Staff appreciate your assistance in clarifying documentation. Please respond to the clarification below the line at the bottom and electronically sign. The CDI & [facility] Coding staff will review the response and follow-up if needed. Please note: Queries are made part of the Legal Health Record. If you have any questions, please contact the author of this message via ITS. Dr. Jose Chinchilla documented that the patient was being discharged on Levaquin for possible UTI. History/Risk Factors: (Cox POA? incontinent?) Patient was admitted for a neurological deficit with fall in shower and worsening somewhat of right sided weakness from previous CVA. Patient had a discharge diagnosis of TIA. Clinical Indicators: Per consult patient had abdominal pain. Vital Signs: T. 98, P. 75, R. 18, BP 122/74 WBC: 7.9 Urinalysis: Trace protein, 1+ ketones, moderate leukocyte esterase, 83 WBC, many bacteria, hyaline casts 3, moderate urine mucus Urine Culture: No culture done Treatment: Sent home on PO Levaquin 500 mg for 3 days Please document the condition that these clinical indicators signify, whether Present on Admission, and cause if known: UTI Unable to determine Present on Admission: Yes MTDD
--- NOTE | 2018-08-13 10:22 | CDI ---
Documentation Clarification Form Date: 08/13/18 From: Shayy Matute Phone: If you have a question regarding this query, please contact Yelena Trevizo at [phone] Admit Date: 08/09/2018 1:21:00 PM Patient Name: Eduardo Gillette Visit Number: [id number] Discharge Date: 08/10/2018 ATTENTION: The Clinical Documentation Specialists (CDI) and [facility] Coding Staff appreciate your assistance in clarifying documentation. Please respond to the clarification below the line at the bottom and electronically sign. The CDI & [facility] Coding staff will review the response and follow-up if needed. Please note: Queries are made part of the Legal Health Record. If you have any questions, please contact the author of this message via ITS. Dr. Jose Chinchilla documented in his 08/10 progress note that the patient is being discharged on Levaquin for possible UTI, which may be the cause of his encephalopathy. History/Risk Factors: Patient with a history of CVA with residual right sided weakness and aphasia having worsening right lower extremity and right sided weakness. Clinical Indicators: Mental status changes per ED note Labs: CBC normal, Chemistry: total bilirubin 1.9, ALT 16, otherwise normal, UA: trace protein, 1+ ketones, moderate leukocyte esterase, WBC 83, many bacteria, Casts 3, moderate mucus EEG: Left frontal temporal slowing with some sharp waves, suggestive of focal cortical neuronal dysfunction with cortical irritability and tendency for seizures. CT/MRI Brain: No acute intracranial hemorrhage or midline shift. There is mild to moderate diffuse age-related cerebral atrophy and chronic small vessel ischemic change along with old left MCA distribution infarct all redemonstrated. No significant change from prior. Treatment: Sent home with PO Levaquin for possible UTI. In your professional opinion, can you please clarify the specific type of Encephalopathy, if known? Encephalopathy Ruled Out Metabolic Encephalopathy Other encephalopathy Unable to determine MTDD
== END 2018-08-10 18:15 | disposition home or self-care (01) | DRG 69 ==
LOC: EC 09:39 → 3SCARD 13:21
PROVIDERS: ADMIT Family Medicine; ATTEND Family Medicine
DX: G45.9 Transient cerebral ischemic attack, unspecified (principal); I69.351 Hemiplegia and hemiparesis following cerebral infarction affecting right dominant side; N39.0 Urinary tract infection, site not specified; G93.40 Encephalopathy, unspecified; F03.90 Unspecified dementia, unspecified severity, without behavioral disturbance, psychotic disturbance, mood disturbance, and anxiety; I11.9 Hypertensive heart disease without heart failure; I69.398 Other sequelae of cerebral infarction; I69.320 Aphasia following cerebral infarction; E78.5 Hyperlipidemia, unspecified; I65.22 Occlusion and stenosis of left carotid artery; R94.01 Abnormal electroencephalogram [EEG]; N40.0 Benign prostatic hyperplasia without lower urinary tract symptoms; M21.371 Foot drop, right foot; Z79.899 Other long term (current) drug therapy; Z87.891 Personal history of nicotine dependence; W18.2XXA Fall in (into) shower or empty bathtub, initial encounter; Y92.10 Unspecified residential institution as the place of occurrence of the external cause
CPT/HCPCS: 36415; 70450; 70496; 70498; 71045; 72170; 80053; 81001; 83036; 84484; 85025; 85610; 85730; 93005; 93306; 95816; 99285

== ENCOUNTER 2019-03-13 05:26 | Emergency (ER) | payer MEDICARE, OTHER ==
[2019-03-13 05:29] LABS: Glucose,Whole Blood 108 mg/dL (75-99)
--- NOTE | 2019-03-13 05:57 | CT ---
EXAMINATION TYPE: CT brain aminta wo con DATE OF EXAM: 03/13/2019 COMPARISON: CT brain 08/09/2018 HISTORY: fall Headache. Neck pain CT DLP: 1575.5 mGycm Automated exposure control for dose reduction was used. There is cerebral cortical atrophy. There is no mass effect nor midline shift. There is no sign of in tracranial hemorrhage. There is old large left internal capsule infarct with adjacent left parietal e ncephalomalacia. Calvarium is intact. Cervical vertebra have normal alignment. There is degenerative disc space narrowing from C3 to C7 wit h mild spurring of the endplates. Facet joints are intact. The skull base is intact. I see no bony de structive process. IMPRESSION: No acute intracranial abnormality. Large old left side middle cerebral artery infarct unchanged.. Mild multilevel spondylotic changes in the cervical spine. No fracture seen.
--- NOTE | 2019-03-13 06:04 | ED ---
Neuro HPI - General Chief Complaint: Neuro Symptoms/Deficit Stated Complaint: Neuro Symptoms, Fall Time Seen by Provider: 03/13/19 05:28 Source: patient, EMS Mode of arrival: EMS Limitations: altered mental status - History of Present Illness Is the patient presenting with stroke symptoms?: Yes -: unknown Initial Comments: This patient is a 68-year-old man brought by ambulance to be evaluated after he was found on the ground next to his bed at his assisted living facility. 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 EMS did call in the patient as possible stroke and he did go directly to computed tomography scan. I have then interviewed the patient. When I interview the patient, the history is limited by some aphasia, but the patient is able to answer direct questioning. Patient does acknowledge having a fall. He denies having any pain or injury as a result of the fall. The patient does not believe he is having new stroke deficits. Patient denies head, neck, chest, back, as well as extremity pain. Denies dyspnea and nausea. Location: right arm, right leg History of same: Yes Place: home Quality: weak Improves With: none Worsens With: none Context: found down Associated Symptoms: denies other symptoms Treatments Prior to Arrival: none - Related Data Home Medications: Home Medications Medication Instructions Recorded Confirmed Donepezil [Aricept] 10 mg PO DAILY 12/10/17 08/09/18 Folic Acid 1 mg PO DAILY 12/10/17 08/09/18 Memantine [Namenda] 5 mg PO DAILY 12/10/17 08/09/18 Rosuvastatin [Crestor] 20 mg PO HS 12/10/17 08/09/18 Tamsulosin HCl [Flomax] 0.4 mg PO DAILY 12/10/17 08/09/18 amLODIPine [Norvasc] 10 mg PO DAILY 12/10/17 08/09/18 Furosemide [Lasix] 10 mg PO DAILY 08/09/18 08/09/18 LORazepam [Ativan] 1 mg PO BID PRN 08/09/18 08/09/18 Previous Rx's Medication Instructions Recorded Aspirin [Adult Low Dose Aspirin EC] 81 mg PO DAILY #30 tablet. 08/10/18 Levofloxacin [Levaquin] 500 mg PO DAILY 3 Days #3 tab 08/10/18 Allergies/Adverse Reactions: Allergies Allergy/AdvReac Type Severity Reaction Status Date / Time No Known Allergies Allergy Verified 08/09/18 10:24 Review of Systems ROS Statement: Those systems with pertinent positive or pertinent negative responses have been documented in the HPI. ROS Other: All systems not noted in ROS Statement are negative. Limitations: ROS unobtainable due to patients medical condition (Aphasia) Constitutional: Denies: fever Eyes: Denies: vision change Respiratory: Denies: cough, dyspnea Cardiovascular: Denies: chest pain Gastrointestinal: Denies: abdominal pain, vomiting Musculoskeletal: Denies: back pain Neurological: Reports: weakness (Chronic right-sided deficit). Denies: headache General Exam Limitations: altered mental status General appearance: alert, in no apparent distress Head exam: Present: normocephalic, other (Patient does have an abrasion to the frontal scalp. Mild soft tissue swelling. No bony tenderness or deformity.) Eye exam: Present: normal appearance, PERRL, EOMI. Absent: scleral icterus, conjunctival injection, nystagmus ENT exam: Present: normal oropharynx Neck exam: Present: normal inspection, full ROM. Absent: tenderness, meningismus Respiratory exam: Present: normal lung sounds bilaterally. Absent: respiratory distress, wheezes, rales, rhonchi, stridor, chest wall tenderness Cardiovascular Exam: Present: regular rate, normal rhythm, normal heart sounds. Absent: systolic murmur, diastolic murmur, rubs, gallop GI/Abdominal exam: Present: soft. Absent: distended, tenderness, guarding, rebound, rigid Extremities exam: Present: normal inspection, normal capillary refill. Absent: tenderness, pedal edema, calf tenderness Back exam: Present: normal inspection. Absent: vertebral tenderness Neurological exam: Present: alert, motor sensory deficit (Patient does have right-sided deficit with contracture right upper extremity. Right leg weakness.). Absent: CN II-XII intact (Right facial droop.) Skin exam: Present: warm, dry, intact, normal color. Absent: rash Stroke MDM - Lab Data Result diagrams: 03/13/19 05:31 03/13/19 05:31 Lab Results 03/13/19 03/13/19 03/13/19 Range/Units 05:28 05:31 05:31 WBC (3.8-10.6) k/uL RBC (4.30-5.90) m/uL Hgb (13.0-17.5) gm/dL Hct (39.0-53.0) % MCV (80.0-100.0) fL MCH (25.0-35.0) pg MCHC (31.0-37.0) g/dL RDW (11.5-15.5) % Plt Count (150-450) k/uL Neutrophils % % Lymphocytes % % Monocytes % % Eosinophils % % Basophils % % Neutrophils # (1.3-7.7) k/uL Lymphocytes # (1.0-4.8) k/uL Monocytes # (0-1.0) k/uL Eosinophils # (0-0.7) k/uL Basophils # (0-0.2) k/uL PT 10.3 (9.0-12.0) sec INR 1.0 (<1.2) APTT 22.0 (22.0-30.0) sec Sodium (137-145) mmol/L Potassium (3.5-5.1) mmol/L Chloride (98-107) mmol/L Carbon Dioxide (22-30) mmol/L Anion Gap mmol/L BUN (9-20) mg/dL Creatinine (0.66-1.25) mg/dL Est GFR (CKD-EPI)AfAm (>60 ml/min/1.73 sqM) Est GFR (CKD-EPI)NonAf (>60 ml/min/1.73 sqM) Glucose (74-99) mg/dL POC Glucose (mg/dL) 108 H (75-99) mg/dL POC Glu Steward/Stewardess Third ID Kody Mike Calcium (8.4-10.2) mg/dL Total Bilirubin (0.2-1.3) mg/dL AST (17-59) U/L ALT (4-49) U/L Alkaline Phosphatase (38-126) U/L Troponin I <0.012 (0.000-0.034) ng/mL Total Protein (6.3-8.2) g/dL Albumin (3.5-5.0) g/dL 03/13/19 03/13/19 Range/Units 05:31 05:31 WBC 7.1 (3.8-10.6) k/uL RBC 4.76 (4.30-5.90) m/uL Hgb 14.8 (13.0-17.5) gm/dL Hct 43.7 (39.0-53.0) % MCV 91.8 (80.0-100.0) fL MCH 31.1 (25.0-35.0) pg MCHC 33.9 (31.0-37.0) g/dL RDW 12.9 (11.5-15.5) % Plt Count 230 (150-450) k/uL Neutrophils % 50 % Lymphocytes % 37 % Monocytes % 6 % Eosinophils % 3 % Basophils % 1 % Neutrophils # 3.5 (1.3-7.7) k/uL Lymphocytes # 2.7 (1.0-4.8) k/uL Monocytes # 0.4 (0-1.0) k/uL Eosinophils # 0.2 (0-0.7) k/uL Basophils # 0.0 (0-0.2) k/uL PT (9.0-12.0) sec INR (<1.2) APTT (22.0-30.0) sec Sodium 141 (137-145) mmol/L Potassium 4.3 (3.5-5.1) mmol/L Chloride 105 (98-107) mmol/L Carbon Dioxide 24 (22-30) mmol/L Anion Gap 12 mmol/L BUN 14 (9-20) mg/dL Creatinine 0.75 (0.66-1.25) mg/dL Est GFR (CKD-EPI)AfAm >90 (>60 ml/min/1.73 sqM) Est GFR (CKD-EPI)NonAf >90 (>60 ml/min/1.73 sqM) Glucose 111 H (74-99) mg/dL POC Glucose (mg/dL) (75-99) mg/dL POC Glu Steward/Stewardess Third ID Calcium 9.3 (8.4-10.2) mg/dL Total Bilirubin 1.5 H (0.2-1.3) mg/dL AST 27 (17-59) U/L ALT 17 (4-49) U/L Alkaline Phosphatase 67 (38-126) U/L Troponin I (0.000-0.034) ng/mL Total Protein 7.1 (6.3-8.2) g/dL Albumin 4.2 (3.5-5.0) g/dL - EKG Data -: EKG Interpreted by Me EKG shows normal: sinus rhythm, axis (Normal), intervals (Normal), QRS complexes (Normal), ST-T waves (Normal) Rate: normal (Rate 72 bpm) Interpretation: normal EKG Past Medical History Past Medical History: CVA/TIA, Hyperlipidemia, Hypertension, Memory Impairment, Prostate Disorder Additional Past Medical History / Comment(s): CVA -pt unsure of year - residual right sided deficits with right foot droop. pt has difficulties with memory impairment and expressive aphasia as well. History of Any Multi-Drug Resistant Organisms: None Reported Past Surgical History: No Surgical Hx Reported Past Anesthesia/Blood Transfusion Reactions: No Reported Reaction Past Psychological History: No Psychological Hx Reported Smoking Status: Former smoker Past Alcohol Use History: None Reported, Rare Past Drug Use History: None Reported - Past Family History Father History Unknown: Yes Course Vital Signs 03/13/19 03/13/19 05:33 06:28 Temperature 98.2 F Pulse Rate 86 73 Respiratory 18 18 Rate Blood Pressure 128/82 119/69 O2 Sat by Pulse 96 100 Oximetry Disposition Clinical Impression: Fall, Abrasion Disposition: HOME SELF-CARE Condition: Good Instructions (If sedation given, give patient instructions): Abrasion (ED), Fall Prevention for Older Adults (ED) Is patient prescribed a controlled substance at d/c from ED?: No Referrals: Edmund Huynh MD [Primary Care Provider] - 1-2 days
[2019-03-13 06:31] LABS: Prothrombin Time 10.3 sec (9.0-12.0)
[2019-03-13 06:35] LABS: Basophils % (A) 1 %; Eosinophils # (A) 0.2 k/uL (0-0.7); Eosinophils % (A) 3 %; HCT 43.7 % (39.0-53.0); HGB 14.8 gm/dL (13.0-17.5); Lymphocytes # (A) 2.7 k/uL (1.0-4.8); Lymphocytes % (A) 37 %; MCH 31.1 pg (25.0-35.0); MCHC 33.9 g/dL (31.0-37.0); MCV 91.8 fL (80.0-100.0); Monocytes # (A) 0.4 k/uL (0-1.0); Monocytes % (A) 6 %; Neutrophils # (A) 3.5 k/uL (1.3-7.7); Neutrophils % (A) 50 %; Platelet Count 230 k/uL (150-450); RBC 4.76 m/uL (4.30-5.90); RDW 12.9 % (11.5-15.5); WBC 7.1 k/uL (3.8-10.6)
[2019-03-13 06:41] LABS: ALT 17 U/L (4-49); AST 27 U/L (17-59); African American GFR (CKD) >90 (>60 ml/min/1.73 sqM); Albumin 4.2 g/dL (3.5-5.0); Alkaline Phosphatase 67 U/L (38-126); Anion Gap 12 mmol/L; Blood Urea Nitrogen 14 mg/dL (9-20); Calcium 9.3 mg/dL (8.4-10.2); Carbon Dioxide 24 mmol/L (22-30); Chloride 105 mmol/L (98-107); Glucose 111 mg/dL (74-99); Non-African American GFR(CKD) >90 (>60 ml/min/1.73 sqM); Potassium 4.3 mmol/L (3.5-5.1); Sodium 141 mmol/L (137-145); Total Bilirubin 1.5 mg/dL (0.2-1.3); Total Protein 7.1 g/dL (6.3-8.2)
[2019-03-13 07:37] VITALS: BP 138/79; PULSE 78; RESP 16; TEMP 98
== END 2019-03-13 07:36 | disposition home or self-care (01) ==
LOC: EC 05:26
DX: S00.01XA Abrasion of scalp, initial encounter (principal); I69.351 Hemiplegia and hemiparesis following cerebral infarction affecting right dominant side; R41.82 Altered mental status, unspecified; E78.5 Hyperlipidemia, unspecified; I10 Essential (primary) hypertension; N42.9 Disorder of prostate, unspecified; R47.01 Aphasia; Z87.891 Personal history of nicotine dependence; Z79.899 Other long term (current) drug therapy; W19.XXXA Unspecified fall, initial encounter; Y92.099 Unspecified place in other non-institutional residence as the place of occurrence of the external cause
CPT/HCPCS: 36415; 70450; 72125; 80053; 84484; 85025; 85610; 85730; 93005; 99285

== ENCOUNTER → 2019-03-15 | Outpatient (CLI) | payer MEDICARE, OTHER ==
--- NOTE | 2019-03-15 11:52 | CT ---
EXAMINATION TYPE: CT brain wo con DATE OF EXAM: 03/15/2019 COMPARISON: 03/13/2011 INDICATION: syncopeal episode DLP: 776.2 mGycm, Automated exposure control for dose reduction was used. CONTRAST: None CT of the brain is performed utilizing 3 mm thick sections through the posterior fossa and 3 mm thick sections through the remaining calvarium. Study is performed within 24 hours of arrival to the hosp ital. No abnormal hyperdensity is present to suggest an acute intracranial hemorrhage. No mass lesion is evident. No acute infarcts are evident. There is an old lacunar infarct within the left basal ganglion. Ex vac uo effect is evident on the left lateral ventricle. There is periventricular white matter ischemic ch anges within the left cardoso radiata extending into the parietal lobe within the centrum semiovale. S ulci are slightly more prominent on the left compared to the right. Ventricles and sulci are mildly prominent for the patient age. This is greater on the left than the right. Paranasal sinuses and mastoid air cells within the [id number] are clear. This exam is compared to 03/13/2019. Findings are stable over the interval. IMPRESSIONS: 1. Old lacunar infarct left basal ganglion with distal periventricular white matter ischemic change s on the left. Findings are stable from 03/13/2019. 2. No acute intracranial process.
== END | disposition home or self-care (01) ==
LOC: RADCTMAIN 11:01
PROVIDERS: ATTEND Family Medicine
DX: R55 Syncope and collapse (principal); Z86.73 Personal history of transient ischemic attack (TIA), and cerebral infarction without residual deficits
CPT/HCPCS: 70450

== ENCOUNTER → 2019-11-06 | Outpatient (CLI) | payer MEDICARE, OTHER ==
--- NOTE | 2019-11-06 10:28 | US ---
EXAMINATION TYPE: US liver DATE OF EXAM: 11/06/2019 COMPARISON: NONE CLINICAL HISTORY: 69-year-old male R94.5 Abnormal labs. TECHNIQUE: Multiple sonographic images of the right upper quadrant were obtained. FINDINGS: EXAM MEASUREMENTS: Liver Length: 14.0 cm Gallbladder Wall: 0.2 cm CBD: 5.7 mm Right Kidney: 11.3 x 4.9 x 4.8 cm Plc Programmer notes: Patient had difficulty holding his breath and severe overlying bowel gas, making s tudy technically difficult and limited. Pancreas: Obscured by bowel gas Liver: somewhat limited evaluation, left lobe not well seen, there may be some mild attenuation of t he visualized portions. Gallbladder: cholelithiasis without wall thickening. No hydropic change or surrounding fluid. Evidence for sonographic Hernandez's sign: no CBD: Upper limits of normal, acceptable given patient's age. Right Kidney: No hydronephrosis. There is an echogenic area along the mid pole measuring 2.0 cm. This seems to be a corresponding contour defect suggesting possible scarring rather than a lesion. Follow -up recommended. IMPRESSION: 1. Cholelithiasis without findings of acute cholecystitis. 2. There may be slight fatty infiltration of the liver. Assessment is technically limited as above. 3. A 2 cm echogenic area along the right renal midpole. Corresponding contour defect suggests possibl e scarring rather than a lesion. Follow-up in 3 months to reassess.
== END | disposition home or self-care (01) ==
LOC: RADUSWWP 08:15
PROVIDERS: ATTEND Family Medicine
DX: K80.20 Calculus of gallbladder without cholecystitis without obstruction (principal); R93.421 Abnormal radiologic findings on diagnostic imaging of right kidney
CPT/HCPCS: 76705

== ENCOUNTER → 2019-12-06 | Outpatient (CLI) | payer MEDICARE, OTHER ==
--- NOTE | 2019-12-07 04:12 | MR ---
EXAMINATION TYPE: MR MRCP DATE OF EXAM: 12/06/2019 COMPARISON: None HISTORY: Elevated bilirubin Multiplanar multiecho imaging of the abdomen was performed without contrast. There are MRCP images. Liver has normal size and contour. There appears to be filling defects in the dependent gallbladder r elated to gallstones. The spleen is intact. There is no evidence of pancreatic mass. Pancreatic duct appears normal. Stomach appears intact. There is no sign of pleural effusion. There is no evidence of ascites. Common bile duct measures 7 mm. There is no dilation of the intrahepatic bile ducts. I see no filling defect in the common bile duct. Kidneys have normal size and contour. There is no hydronephrosis. There is no evidence of adrenal mas s. The MRCP images show good visualization of the internal extrahepatic biliary tree. There is no eviden ce of a stricture. Pancreatic duct appears normal. IMPRESSION: There are multiple small gallstones. No dilation of the intrahepatic bile ducts. No evidence of a com mon duct stone. Normal pancreatic duct.
== END | disposition home or self-care (01) ==
LOC: RADMRIMAIN 15:52
PROVIDERS: ATTEND Family Medicine
DX: K80.20 Calculus of gallbladder without cholecystitis without obstruction (principal)
CPT/HCPCS: 74181

== ENCOUNTER 2020-02-22 21:13 | Emergency (ER) | payer MEDICARE, OTHER ==
[2020-02-22 21:22] VITALS: RESP 18; TEMP 97.6
--- NOTE | 2020-02-22 21:32 | ED ---
Fall HPI - General Chief Complaint: Fall Stated Complaint: Fall Time Seen by Provider: 02/22/20 21:26 Source: patient, EMS Mode of arrival: EMS - History of Present Illness Initial Comments: 69-year-old male with history of right-sided weakness at baseline secondary to CVA, AO 2 at baseline secondary to dementia presenting to the emergency department with a chief complaint of a fall. Patient lives alone at [facility] and supposedly hit his head last night. Patient states this was actually this morning. Patient does have difficulty speaking. No further information was delivered by the assisted living facility. Patient states he typically uses a walker tabulate and today he lost balance by tripping over and falling down. Patient reports an injury to the left side of the head. Patient also reports some tenderness along the right knee. - Related Data Home Medications Medication Instructions Recorded Confirmed Donepezil [Aricept] 10 mg PO DAILY 12/10/17 02/22/20 Folic Acid 1 mg PO DAILY 12/10/17 02/22/20 Memantine [Namenda] 5 mg PO DAILY 12/10/17 02/22/20 Tamsulosin HCl [Flomax] 0.4 mg PO DAILY 12/10/17 02/22/20 amLODIPine [Norvasc] 10 mg PO DAILY 12/10/17 02/22/20 LORazepam [Ativan] 0.5 mg PO HS 08/09/18 02/22/20 Chlorpheniramine Maleate 4 mg PO Q6H PRN 02/22/20 02/22/20 [Chlor-Trimeton] Furosemide [Lasix] 20 mg PO BID@0900,1400 02/22/20 02/22/20 Rosuvastatin Calcium [Crestor] 40 mg PO HS 02/22/20 02/22/20 Allergies Allergy/AdvReac Type Severity Reaction Status Date / Time No Known Allergies Allergy Verified 02/22/20 22:17 Review of Systems ROS Statement: Those systems with pertinent positive or pertinent negative responses have been documented in the HPI. ROS Other: All systems not noted in ROS Statement are negative. 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 pt has difficulties with memory impairment and expressive aphasia as well. History of Any Multi-Drug Resistant Organisms: None Reported Past Surgical History: No Surgical Hx Reported Past Anesthesia/Blood Transfusion Reactions: No Reported Reaction Past Psychological History: No Psychological Hx Reported Smoking Status: Former smoker Past Alcohol Use History: None Reported, Rare Past Drug Use History: None Reported - Past Family History Father History Unknown: Yes General Exam Limitations: altered mental status, physical limitation General appearance: alert, in no apparent distress Head exam: Present: atraumatic, normocephalic, normal inspection (Small abrasion on the left parietal region). Absent: other (Negative Rodriguez sign, raccoon eyes, hemotympanum.) Eye exam: Present: normal appearance, PERRL, EOMI. Absent: scleral icterus, conjunctival injection, nystagmus Pupils: Present: normal accommodation ENT exam: Present: normal exam, normal oropharynx, mucous membranes moist, TM's normal bilaterally, normal external ear exam Neck exam: Present: normal inspection, full ROM. Absent: tenderness Respiratory exam: Present: normal lung sounds bilaterally. Absent: respiratory distress, wheezes, rales Cardiovascular Exam: Present: regular rate, normal rhythm, normal heart sounds. Absent: systolic murmur, diastolic murmur GI/Abdominal exam: Present: soft. Absent: distended, tenderness, guarding, rebound, rigid Extremities exam: Present: normal inspection (Small abrasion on the right knee), full ROM, tenderness (Tenderness in the right medial knee.), normal capillary refill. Absent: pedal edema, joint swelling Back exam: Present: normal inspection, full ROM. Absent: tenderness, CVA tenderness (R), CVA tenderness (L), muscle spasm, paraspinal tenderness, vertebral tenderness Neurological exam: Present: alert, oriented X3 (AO x2) Psychiatric exam: Present: normal affect, normal mood Skin exam: Present: warm, dry, intact, normal color Course Vital Signs 02/22/20 21:17 Temperature 97.6 F Pulse Rate 85 Respiratory 18 Rate Blood Pressure 117/62 O2 Sat by Pulse 98 Oximetry Medical Decision Making - Medical Decision Making 69-year-old male with history of right-sided weakness at baseline secondary to CVA, AO 2 at baseline secondary to dementia presenting to the emergency department with a chief complaint of a fall. On physical examination, patient has small abrasion on the left side of the head. Brain of the CT brain C-spine shows no acute findings aside from an old CVA in the left hemisphere. Chest x- ray shows no new acute findings. Right knee shows mild osteoarthritis but no acute fracture or dislocation. CBC shows mild leukocytosis. CMP is unremarkable. Return parameters were thoroughly discussed the patient's understanding and agreeable. Case discussed with physician. - Lab Data Result diagrams: 02/22/20 22:04 02/22/20 22:49 Lab Results 02/22/20 02/22/20 Range/Units 22:04 22:49 WBC 14.2 H (3.8-10.6) k/uL RBC 4.73 (4.30-5.90) m/uL Hgb 14.7 (13.0-17.5) gm/dL Hct 42.6 (39.0-53.0) % MCV 89.9 (80.0-100.0) fL MCH 31.1 (25.0-35.0) pg MCHC 34.6 (31.0-37.0) g/dL RDW 12.6 (11.5-15.5) % Plt Count 156 (150-450) k/uL MPV 8.4 Neutrophils % 86 % Lymphocytes % 8 % Monocytes % 5 % Eosinophils % 0 % Basophils % 0 % Neutrophils # 12.2 H (1.3-7.7) k/uL Lymphocytes # 1.1 (1.0-4.8) k/uL Monocytes # 0.7 (0-1.0) k/uL Eosinophils # 0.0 (0-0.7) k/uL Basophils # 0.0 (0-0.2) k/uL Sodium 134 L (137-145) mmol/L Potassium 3.6 (3.5-5.1) mmol/L Chloride 103 (98-107) mmol/L Carbon Dioxide 27 (22-30) mmol/L Anion Gap 4 mmol/L BUN 16 (9-20) mg/dL Creatinine 0.54 L (0.66-1.25) mg/dL Est GFR (CKD-EPI)AfAm >90 (>60 ml/min/1.73 sqM) Est GFR (CKD-EPI)NonAf >90 (>60 ml/min/1.73 sqM) Glucose 110 H (74-99) mg/dL Calcium 7.9 L (8.4-10.2) mg/dL Total Bilirubin 2.2 H (0.2-1.3) mg/dL AST 45 (17-59) U/L ALT 19 (4-49) U/L Alkaline Phosphatase 48 (38-126) U/L Total Protein 6.1 L (6.3-8.2) g/dL Albumin 3.3 L (3.5-5.0) g/dL Disposition Clinical Impression: Fall, Head injury Disposition: HOME SELF-CARE Condition: Stable Instructions (If sedation given, give patient instructions): Fall Prevention (ED) Additional Instructions: Follow with the primary care physician. Return to emergency department if symptoms worsen. Is patient prescribed a controlled substance at d/c from ED?: No Referrals: Edmund Huynh MD [Primary Care Provider] - 1-2 days Time of Disposition: 23:30
[2020-02-22] MEDS ORDERED: SODIUM CHLORIDE 0.9% 1,000 ML IV STA (21:48)
[2020-02-22 22:12] LABS: Basophils % (A) 0 %; Eosinophils % (A) 0 %; HCT 42.6 % (39.0-53.0); HGB 14.7 gm/dL (13.0-17.5); Lymphocytes # (A) 1.1 k/uL (1.0-4.8); Lymphocytes % (A) 8 %; MCH 31.1 pg (25.0-35.0); MCHC 34.6 g/dL (31.0-37.0); MCV 89.9 fL (80.0-100.0); Mean Platelet Volume 8.4; Monocytes # (A) 0.7 k/uL (0-1.0); Monocytes % (A) 5 %; Neutrophils # (A) 12.2 k/uL (1.3-7.7); Neutrophils % (A) 86 %; Platelet Count 156 k/uL (150-450); RBC 4.73 m/uL (4.30-5.90); RDW 12.6 % (11.5-15.5); WBC 14.2 k/uL (3.8-10.6)
--- NOTE | 2020-02-22 22:23 | XR ---
EXAMINATION TYPE: XR chest 2V DATE OF EXAM: 02/22/2020 COMPARISON: 07/27/2018 HISTORY: Fall. Chest pain TECHNIQUE: FINDINGS: Heart and mediastinum are normal for age. Lungs are clear. There is no pleural effusion or pneumothorax. Trachea is midline. There is slight anterior wedging of mid thoracic vertebra that is p robably old. There are no hilar masses. IMPRESSION: No active cardiopulmonary disease. Normal heart. Heart and lungs unchanged. There is mild anterior wedging of a few mid thoracic vertebra that has progressed compared to old exam.
--- NOTE | 2020-02-22 22:33 | XR ---
EXAMINATION TYPE: XR knee complete RT DATE OF EXAM: 02/22/2020 COMPARISON: NONE HISTORY: Knee pain TECHNIQUE: 3 views FINDINGS: There is spurring of the femoral and tibial condyles. There is knee joint effusion. I see n o fracture nor dislocation. There is narrowing of the joint spaces. IMPRESSION: Moderate osteoarthritis that is more noticeable in the medial joint space. No fracture se en. Mild joint effusion.
--- NOTE | 2020-02-22 22:50 | CT ---
EXAMINATION TYPE: CT brain aminta avalos con DATE OF EXAM: 02/22/2020 COMPARISON: 03/15/2019 CT brain HISTORY: pt fall, hitting head on nightstand CT DLP: 1539.1 mGycm Automated exposure control for dose reduction was used. Images obtained of the brain without contrast. Images obtained from the skull base to T1 vertebra wit hout contrast. There is hypodensity in the large area of the left cerebral hemisphere related to old internal capsul e infarct and left temporal parietal infarct. There is no mass effect nor midline shift. There is no sign of intracranial hemorrhage. There is enlargement of the left lateral ventricle. The calvarium is intact. The skull base is intact. Cervical vertebra have normal alignment. There is degenerative disc space narrowing in the cervical s pine from C3 to T1. There is spurring of the endplates. Facet joints are intact there is no compressi on fracture. IMPRESSION: Old left hemisphere infarct unchanged compared to old exam. No acute intracranial abnormality. Spondylotic changes in the cervical spine. No fracture seen.
[2020-02-22 23:10] LABS: ALT 19 U/L (4-49); AST 45 U/L (17-59); African American GFR (CKD) >90 (>60 ml/min/1.73 sqM); Albumin 3.3 g/dL (3.5-5.0); Alkaline Phosphatase 48 U/L (38-126); Anion Gap 4 mmol/L; Blood Urea Nitrogen 16 mg/dL (9-20); Calcium 7.9 mg/dL (8.4-10.2); Carbon Dioxide 27 mmol/L (22-30); Chloride 103 mmol/L (98-107); Glucose 110 mg/dL (74-99); Non-African American GFR(CKD) >90 (>60 ml/min/1.73 sqM); Sodium 134 mmol/L (137-145); Total Bilirubin 2.2 mg/dL (0.2-1.3); Total Protein 6.1 g/dL (6.3-8.2)
[2020-02-22 23:21] LABS: Potassium 3.6 mmol/L (3.5-5.1)
[2020-02-22 23:42] VITALS: BP 118/72; PULSE 80
== END 2020-02-23 00:52 | disposition home or self-care (01) ==
LOC: EC 21:13
DX: S00.91XA Abrasion of unspecified part of head, initial encounter (principal); M17.11 Unilateral primary osteoarthritis, right knee; F03.90 Unspecified dementia, unspecified severity, without behavioral disturbance, psychotic disturbance, mood disturbance, and anxiety; S80.211A Abrasion, right knee, initial encounter; I10 Essential (primary) hypertension; E78.5 Hyperlipidemia, unspecified; Z79.899 Other long term (current) drug therapy; Z87.891 Personal history of nicotine dependence; Z86.73 Personal history of transient ischemic attack (TIA), and cerebral infarction without residual deficits; W01.0XXA Fall on same level from slipping, tripping and stumbling without subsequent striking against object, initial encounter
CPT/HCPCS: 36415; 70450; 71046; 72125; 80053; 85025; 96360; 99284

== ENCOUNTER 2020-11-08 10:21 | Emergency (ER) | payer MEDICARE, OTHER ==
[2020-11-08 10:29] VITALS: TEMP 98.2
--- NOTE | 2020-11-08 11:01 | ED ---
Fall HPI - General Chief Complaint: Fall Stated Complaint: Fell Time Seen by Provider: 11/08/20 10:36 Source: patient Mode of arrival: wheelchair - History of Present Illness Initial Comments: 70-year-old male with right-sided deficits and speech difficulties at baseline secondary to CVA presenting to emergency Department with a chief complaint fall. Patient lives in assisted living facility. His sister is also present to answer additional questions. His sister states the patient typically uses shower chair but this time decided not to use 1 when he suffered a mechanical slip and fall. There was no associated lightheadedness dizziness or any syncopal episodes. The facility staff came to his apartment was the patient was on the ground. Sister states she contacted the primary care physician who advised him to come to the emergency department further evaluation. Patient denies any significant head injury but does report some pain along the right trapezius and shoulder. He also reports pain in the right knee and foot. Patient wears a brace on the right leg at baseline. His right arm is typically in a flexed position at the elbow. Patient denies any pain or the abdomen back chest. Patient is on antiplatelet therapy with Plavix. Sister states the patient is otherwise acting at his baseline. - Related Data Home Medications Medication Instructions Recorded Confirmed Donepezil [Aricept] 10 mg PO HS 12/10/17 11/08/20 Folic Acid 1 mg PO DAILY 12/10/17 11/08/20 Memantine [Namenda] 5 mg PO DAILY 12/10/17 11/08/20 Furosemide [Lasix] 20 mg PO BID 02/22/20 11/08/20 Aspirin EC [Ecotrin Low Dose] 81 mg PO DAILY 11/08/20 11/08/20 Clopidogrel [Plavix] 75 mg PO DAILY 11/08/20 11/08/20 Fish Oil/Dha/Epa [Fish Oil 1,200 1 cap PO BID 11/08/20 11/08/20 mg Fish Oil] Hydrocortisone Cream 1 applic TOPICAL BID 11/08/20 11/08/20 [Hydrocortisone 2.5% Cream] Rosuvastatin Calcium [Crestor] 20 mg PO DAILY 11/08/20 11/08/20 amLODIPine [Norvasc] 5 mg PO DAILY 11/08/20 11/08/20 Allergies Allergy/AdvReac Type Severity Reaction Status Date / Time No Known Allergies Allergy Verified 11/08/20 11:21 Review of Systems ROS Statement: Those systems with pertinent positive or pertinent negative responses have been documented in the HPI. ROS Other: All systems not noted in ROS Statement are negative. 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 pt has difficulties with memory impairment and expressive aphasia as well. History of Any Multi-Drug Resistant Organisms: None Reported Past Surgical History: No Surgical Hx Reported Past Anesthesia/Blood Transfusion Reactions: No Reported Reaction Past Psychological History: No Psychological Hx Reported Smoking Status: Former smoker Past Alcohol Use History: None Reported, Rare Past Drug Use History: None Reported - Past Family History Father History Unknown: Yes General Exam Limitations: no limitations General appearance: alert, in no apparent distress Head exam: Present: atraumatic, normocephalic, normal inspection Eye exam: Present: normal appearance, PERRL, EOMI Pupils: Present: normal accommodation ENT exam: Present: normal exam, normal oropharynx, mucous membranes moist Neck exam: Present: normal inspection, full ROM. Absent: tenderness, lymphadenopathy Respiratory exam: Present: normal lung sounds bilaterally. Absent: respiratory distress, wheezes, rales, rhonchi, stridor Cardiovascular Exam: Present: regular rate, normal rhythm, normal heart sounds. Absent: systolic murmur, diastolic murmur GI/Abdominal exam: Present: soft. Absent: distended, tenderness, guarding, rebound Extremities exam: Present: normal inspection (Right-sided deficits at baseline. Right arm is in a flexed position at the elbow and wrist. He wears a brace on the right foot), full ROM, tenderness (Tenderness in the right shoulder, knee, foot and ankle.), normal capillary refill, other (Palpable DP and PT bilaterally). Absent: pedal edema, joint swelling Back exam: Present: normal inspection, full ROM. Absent: tenderness, CVA tenderness (L), muscle spasm, paraspinal tenderness, vertebral tenderness Neurological exam: Present: alert, oriented X3 Psychiatric exam: Present: normal affect, normal mood Skin exam: Present: warm, dry, intact, normal color Course Vital Signs 11/08/20 11/08/20 11/08/20 10:23 11:29 12:29 Temperature 98.2 F Pulse Rate 76 Respiratory 19 18 18 Rate Blood Pressure 139/85 O2 Sat by Pulse 98 Oximetry 11/08/20 12:50 Temperature 98.2 F Pulse Rate 83 Respiratory 18 Rate Blood Pressure 140/83 O2 Sat by Pulse 98 Oximetry Medical Decision Making - Medical Decision Making 70-year-old male with right-sided deficits and speech difficulties at baseline secondary to CVA presenting to emergency Department with a chief complaint fall. On physical examination, patient does have right-sided paralysis and his arm is flexed position in the elbow and wrist at baseline. Patient was tender over the right trapezius and shoulder. Mild tenderness over the right knee ankle and foot. CT of the brain and C-spine shows no acute findings. X-ray of the right shoulder is unremarkable. Right knee shows osteoarthritic changes which the patient is well aware of. Imaging of the foot and ankle unremarkable. He has no pinpoint tenderness over the toes. The results were discussed with the patient and family members. This was a pure mechanical fall. Patient will be discharged with outpatient follow-up. Return parameters with a little discussed with patient and sister who is agreeing and agreeable. Case discussed with Dr. Finch. Disposition Clinical Impression: Fall Disposition: HOME SELF-CARE Condition: Stable Instructions (If sedation given, give patient instructions): Fall Prevention (ED) Additional Instructions: Please return to the Emergency Department if symptoms worsen or any other concerns. Is patient prescribed a controlled substance at d/c from ED?: No Referrals: Edmund Huynh MD [Primary Care Provider] - 1-2 days Time of Disposition: 12:35
--- NOTE | 2020-11-08 11:35 | CT ---
EXAMINATION TYPE: CT brain cspine wo con DATE OF EXAM: 11/08/2020 COMPARISON: 02/22/2020 HISTORY: Fall CT DLP: 1514.6 mGycm Automated exposure control for dose reduction was used. TECHNIQUE: CT scan of the head and cervical spine are performed without contrast. FINDINGS: There is no acute intracranial hemorrhage, mass effect, or midline shift identified. Ther e is redemonstration of large area of low-attenuation along the left consistent with a stable compare d to prior examination. Cervical spine is visualized in its entirety from C1 through upper thoracic levels and demonstrates s atisfactory alignment without evidence of acute fracture or dislocation. Prevertebral soft tissue ap pears within normal limits. The C1-C2 articulation is unremarkable. Moderate loss of disc space ost eophytes are seen at C4-5, C5-6 levels. IMPRESSION: 1. There is no acute fracture or dislocation evident in the cervical spine. 2. No acute intracranial hemorrhage, mass effect, or midline shift is seen. Old left MCA infarct. Mod erate diffuse disease of the cervical spine
--- NOTE | 2020-11-08 12:04 | XR ---
EXAMINATION TYPE: XR ankle complete RT DATE OF EXAM: 11/08/2020 CLINICAL HISTORY: Fall TECHNIQUE: Frontal, lateral and oblique images of the right ankle are obtained. COMPARISON: None FINDINGS: There is no acute fracture/dislocation evident in the right ankle. The ankle mortise appe ars within normal limits. The overlying soft tissue appears unremarkable. There is heavy arterial calcification likely related to history of diabetes. Lower extremity Doppler may consider a routine basis for screening purposes if clinically indicated. IMPRESSION: There is no acute fracture or dislocation in the right ankle.
--- NOTE | 2020-11-08 12:17 | XR ---
EXAMINATION TYPE: XR shoulder complete RT DATE OF EXAM: 11/08/2020 CLINICAL HISTORY: Fall TECHNIQUE: Three views of the right shoulder are obtained. COMPARISON: None. FINDINGS: There is no acute fracture/dislocation evident in the right shoulder. There is moderate grazyna int space narrowing of the glenohumeral and acromioclavicular joints. There is osteopenia. No obvious fracture is seen. There is decreased subacromial space. 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 IMPRESSION: There is no acute fracture or dislocation in the right shoulder.
--- NOTE | 2020-11-08 12:24 | XR ---
EXAMINATION TYPE: XR foot complete RT DATE OF EXAM: 11/08/2020 CLINICAL HISTORY: Fall. TECHNIQUE: Frontal, lateral and oblique images of the right foot. COMPARISON: None. FINDINGS: There is slight irregularity of the base of the proximal phalanx of the third toe in this could be re lated to degenerative disease. Please correlate clinically. Remainder of the right foot is intact. IMPRESSION: Please correlate clinically for third toe injury.
--- NOTE | 2020-11-08 12:27 | XR ---
EXAMINATION TYPE: XR knee complete RT DATE OF EXAM: 11/08/2020 CLINICAL HISTORY: Fall TECHNIQUE: 3 views of the right knee including crosstable lateral view were obtained. Correlation mad e to similar x-ray from 02/22/2020. COMPARISON: As noted above. FINDINGS: There is redemonstration of tricompartmental degenerative disease with osteophytes at the edges. Trac e amount of joint effusion is seen. No fat fluid level seen. There is no fracture. No significant sof t tissue abnormalities appreciated. IMPRESSION: Moderate to severe tricompartment degenerative disease of the right knee. The patient con tinues to be symptomatic, routine orthopedic evaluation may be considered.
[2020-11-08 12:55] VITALS: RESP 18
[2020-11-08 12:56] VITALS: BP 140/83; PULSE 83
== END 2020-11-08 12:58 | disposition home or self-care (01) ==
LOC: EC 10:21
DX: M25.511 Pain in right shoulder (principal); M25.561 Pain in right knee; M25.571 Pain in right ankle and joints of right foot; I10 Essential (primary) hypertension; E78.5 Hyperlipidemia, unspecified; Z79.02 Long term (current) use of antithrombotics/antiplatelets; Z79.82 Long term (current) use of aspirin; Z79.899 Other long term (current) drug therapy; Z86.73 Personal history of transient ischemic attack (TIA), and cerebral infarction without residual deficits; Z87.891 Personal history of nicotine dependence; W01.0XXA Fall on same level from slipping, tripping and stumbling without subsequent striking against object, initial encounter
CPT/HCPCS: 70450; 72125; 99284

== ENCOUNTER 2022-02-02 07:11 | Observation (INO) | payer MEDICARE, OTHER ==
--- NOTE | 2022-02-02 07:36 | ED ---
General Adult HPI - General Chief complaint: Altered Mental Status Stated complaint: Fall, Altered Mental Status Time Seen by Provider: 02/02/22 07:28 Source: EMS Mode of arrival: EMS Limitations: altered mental status - History of Present Illness Initial comments: Dictation was produced using [employer] dictation software. please excuse any grammatical, word or spelling errors. Chief Complaint: 71-year-old male past medical history of stroke presents emergency Department after being found down History of Present Illness: Patient 71-year-old male with past medical history of CVA presents via EMS from [facility] for being found on the ground. Patient is a poor historian. He is alert and oriented 1 out of 4. He is brought to the emergency department by EMS. Patient allegedly has a history of stroke with right-sided deficit according to chart review. He fell at an unknown time. He presses life alert and an was brought to the emergency room. It's unclear although patient has been down on the ground for. EMS reports that he was covered in dried stool. Unknown last normal. Patient denies any pain Unable to obtain ROS second attempt mental status PHYSICAL EXAM: General Impression: Alert and oriented x1/4, able to tell his name and birthdate,, not in acute distress HEENT: Normocephalic atraumatic, extra-ocular movements intact, pupils equal and reactive to light bilaterally, mucous membranes moist. Cardiovascular: Heart regular rate and rhythm Chest: Able to complete full sentences, no retractions, no tachypnea Abdomen: abdomen soft, non-tender, non-distended, no organomegaly Musculoskeletal: Pulses present and equal in all extremities, no peripheral edema Motor: no focal deficits noted Neurological: Mild right facial droop, contraction to the right upper extremity, aphasic Skin: Intact with no visualized rashes Psych: Normal affect and mood ED course: 71-year-old male with past medical history of alleged CVA presents to the emergency department after being found on the ground after a fall. Vital signs upon arrival are within acceptable limits. 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 According to that note patient had mild dysarthria, expressive aphasia right-sided hemiparesis Spoke with nurse practitioner who is well aware of patient. She is his PCP in insurance authorization provider. Nurse practitioner reports that patient sounds to be at baseline. He has a history of aphasia and right-sided deficit at baseline. Laboratory evaluation obtained. CBC, coag panel, metabolic panel is unremarkable. Urinalysis is negative. Patient is positive for coronal virus. Computed tomography scan the brain and CT angiography of the head and neck shows no acute processes. Forearm x-ray is negative. No rhabdomyolysis. Patient lives in a facility with minimal assistance. Patient is debilitated secondary to COVID-19. Patient Dionisio observation for placement. We are working on g etting patient antiviral medications. My EKG interpretation: Ventricular rate 8, sinus rhythm with frequent PVCs,. 180, QRS 11, QTC 422. No MA prolongation, no QTC prolongation, no ST or T-wave changes noted. Overall, this EKG is nonspecific Critical Care: yes Critical Care time: 33 minutes - Related Data Home Medications Medication Instructions Recorded Confirmed Donepezil [Aricept] 10 mg PO DAILY 12/10/17 02/02/22 Folic Acid 1 mg PO DAILY 12/10/17 02/02/22 Memantine [Namenda] 5 mg PO BID 12/10/17 02/02/22 Furosemide [Lasix] 20 mg PO BID 02/22/20 02/02/22 Aspirin EC [Ecotrin Low Dose] 81 mg PO DAILY 11/08/20 02/02/22 Clopidogrel [Plavix] 75 mg PO DAILY 11/08/20 02/02/22 Rosuvastatin Calcium [Crestor] 20 mg PO HS 11/08/20 02/02/22 amLODIPine [Norvasc] 5 mg PO DAILY 11/08/20 02/02/22 methocarbamoL [Robaxin] 500 mg PO BID 02/02/22 02/02/22 Previous Rx's Medication Instructions Recorded Molnupiravir [Lagevrio (Eua)] 800 mg PO BID 5 Days #40 cap 02/02/22 Allergies Allergy/AdvReac Type Severity Reaction Status Date / Time No Known Allergies Allergy Verified 02/02/22 10:58 Review of Systems ROS Statement: Those systems with pertinent positive or pertinent negative responses have been documented in the HPI. ROS Other: All systems not noted in ROS Statement are negative. 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 pt has difficulties with memory impairment and expressive aphasia as well. History of Any Multi-Drug Resistant Organisms: None Reported Past Surgical History: No Surgical Hx Reported Past Anesthesia/Blood Transfusion Reactions: No Reported Reaction Past Psychological History: No Psychological Hx Reported Smoking Status: Former smoker Past Alcohol Use History: None Reported, Rare Past Drug Use History: None Reported - Past Family History Father History Unknown: Yes General Exam Limitations: altered mental status Course Vital Signs 02/02/22 02/02/22 02/02/22 07:12 08:25 10:14 Temperature 98.1 F Pulse Rate 80 73 82 Respiratory 18 18 18 Rate Blood Pressure 121/101 134/74 129/81 O2 Sat by Pulse 96 95 95 Oximetry Medical Decision Making - Lab Data Result diagrams: 02/02/22 07:32 02/02/22 07:32 Lab Results 02/02/22 02/02/22 02/02/22 Range/Units 07:32 07:32 07:32 WBC 7.1 (3.8-10.6) k/uL RBC 4.86 (4.30-5.90) m/uL Hgb 15.3 (13.0-17.5) gm/dL Hct 44.4 (39.0-53.0) % MCV 91.2 (80.0-100.0) fL MCH 31.5 (25.0-35.0) pg MCHC 34.6 (31.0-37.0) g/dL RDW 12.8 (11.5-15.5) % Plt Count 228 (150-450) k/uL MPV 8.3 Neutrophils % 82 % Lymphocytes % 12 % Monocytes % 4 % Eosinophils % 0 % Basophils % 1 % Neutrophils # 5.8 (1.3-7.7) k/uL Lymphocytes # 0.9 L (1.0-4.8) k/uL Monocytes # 0.3 (0-1.0) k/uL Eosinophils # 0.0 (0-0.7) k/uL Basophils # 0.0 (0-0.2) k/uL PT 10.1 (9.0-12.0) sec INR 0.9 (<1.2) APTT 18.0 L (22.0-30.0) sec Sodium 139 (137-145) mmol/L Potassium 4.8 (3.5-5.1) mmol/L Chloride 104 (98-107) mmol/L Carbon Dioxide 26 (22-30) mmol/L Anion Gap 9 mmol/L BUN 15 (9-20) mg/dL Creatinine 0.67 (0.66-1.25) mg/dL Est GFR (CKD-EPI)AfAm >90 (>60 ml/min/1.73 sqM) Est GFR (CKD-EPI)NonAf >90 (>60 ml/min/1.73 sqM) Glucose 111 H (74-99) mg/dL Plasma Lactic Acid Florentino (0.7-2.0) mmol/L Calcium 9.0 (8.4-10.2) mg/dL Magnesium 2.2 (1.6-2.3) mg/dL Total Bilirubin 0.9 (0.2-1.3) mg/dL AST 29 (17-59) U/L ALT 22 (4-49) U/L Alkaline Phosphatase 76 (38-126) U/L Creatine Kinase 152 (55-170) U/L Troponin I (0.000-0.034) ng/mL Total Protein 7.7 (6.3-8.2) g/dL Albumin 4.4 (3.5-5.0) g/dL Urine Color Urine Appearance (Clear) Urine pH (5.0-8.0) Ur Specific [place] (1.001-1.035) Urine Protein (Negative) Urine Glucose (UA) (Negative) Urine Ketones (Negative) Urine Blood (Negative) Urine Nitrite (Negative) Urine Bilirubin (Negative) Urine Urobilinogen (<2.0) mg/dL Ur Leukocyte Esterase (Negative) Influenza Type A (PCR) (Not Detectd) Influenza Type B (PCR) (Not Detectd) RSV (PCR) (Not Detectd) SARS-CoV-2 (PCR) (Not Detectd) 02/02/22 02/02/22 02/02/22 Range/Units 07:32 07:32 07:41 WBC (3.8-10.6) k/uL RBC (4.30-5.90) m/uL Hgb (13.0-17.5) gm/dL Hct (39.0-53.0) % MCV (80.0-100.0) fL MCH (25.0-35.0) pg MCHC (31.0-37.0) g/dL RDW (11.5-15.5) % Plt Count (150-450) k/uL MPV Neutrophils % % Lymphocytes % % Monocytes % % Eosinophils % % Basophils % % Neutrophils # (1.3-7.7) k/uL Lymphocytes # (1.0-4.8) k/uL Monocytes # (0-1.0) k/uL Eosinophils # (0-0.7) k/uL Basophils # (0-0.2) k/uL PT (9.0-12.0) sec INR (<1.2) APTT (22.0-30.0) sec Sodium (137-145) mmol/L Potassium (3.5-5.1) mmol/L Chloride (98-107) mmol/L Carbon Dioxide (22-30) mmol/L Anion Gap mmol/L BUN (9-20) mg/dL Creatinine (0.66-1.25) mg/dL Est GFR (CKD-EPI)AfAm (>60 ml/min/1.73 sqM) Est GFR (CKD-EPI)NonAf (>60 ml/min/1.73 sqM) Glucose (74-99) mg/dL Plasma Lactic Acid Florentino 1.7 (0.7-2.0) mmol/L Calcium (8.4-10.2) mg/dL Magnesium (1.6-2.3) mg/dL Total Bilirubin (0.2-1.3) mg/dL AST (17-59) U/L ALT (4-49) U/L Alkaline Phosphatase (38-126) U/L Creatine Kinase (55-170) U/L Troponin I 0.026 (0.000-0.034) ng/mL Total Protein (6.3-8.2) g/dL Albumin (3.5-5.0) g/dL Urine Color Urine Appearance (Clear) Urine pH (5.0-8.0) Ur Specific [place] (1.001-1.035) Urine Protein (Negative) Urine Glucose (UA) (Negative) Urine Ketones (Negative) Urine Blood (Negative) Urine Nitrite (Negative) Urine Bilirubin (Negative) Urine Urobilinogen (<2.0) mg/dL Ur Leukocyte Esterase (Negative) Influenza Type A (PCR) Not Detected (Not Detectd) Influenza Type B (PCR) Not Detected (Not Detectd) RSV (PCR) Not Detected (Not Detectd) SARS-CoV-2 (PCR) Detected A (Not Detectd) 02/02/22 Range/Units 11:05 WBC (3.8-10.6) k/uL RBC (4.30-5.90) m/uL Hgb (13.0-17.5) gm/dL Hct (39.0-53.0) % MCV (80.0-100.0) fL MCH (25.0-35.0) pg MCHC (31.0-37.0) g/dL RDW (11.5-15.5) % Plt Count (150-450) k/uL MPV Neutrophils % % Lymphocytes % % Monocytes % % Eosinophils % % Basophils % % Neutrophils # (1.3-7.7) k/uL Lymphocytes # (1.0-4.8) k/uL Monocytes # (0-1.0) k/uL Eosinophils # (0-0.7) k/uL Basophils # (0-0.2) k/uL PT (9.0-12.0) sec INR (<1.2) APTT (22.0-30.0) sec Sodium (137-145) mmol/L Potassium (3.5-5.1) mmol/L Chloride (98-107) mmol/L Carbon Dioxide (22-30) mmol/L Anion Gap mmol/L BUN (9-20) mg/dL Creatinine (0.66-1.25) mg/dL Est GFR (CKD-EPI)AfAm (>60 ml/min/1.73 sqM) Est GFR (CKD-EPI)NonAf (>60 ml/min/1.73 sqM) Glucose (74-99) mg/dL Plasma Lactic Acid Florentino (0.7-2.0) mmol/L Calcium (8.4-10.2) mg/dL Magnesium (1.6-2.3) mg/dL Total Bilirubin (0.2-1.3) mg/dL AST (17-59) U/L ALT (4-49) U/L Alkaline Phosphatase (38-126) U/L Creatine Kinase (55-170) U/L Troponin I (0.000-0.034) ng/mL Total Protein (6.3-8.2) g/dL Albumin (3.5-5.0) g/dL Urine Color Yellow Urine Appearance Clear (Clear) Urine pH 8.0 (5.0-8.0) Ur Specific [place] >1.050 H (1.001-1.035) Urine Protein Trace H (Negative) Urine Glucose (UA) Negative (Negative) Urine Ketones 1+ H (Negative) Urine Blood Negative (Negative) Urine Nitrite Negative (Negative) Urine Bilirubin Negative (Negative) Urine Urobilinogen <2.0 (<2.0) mg/dL Ur Leukocyte Esterase Negative (Negative) Influenza Type A (PCR) (Not Detectd) Influenza Type B (PCR) (Not Detectd) RSV (PCR) (Not Detectd) SARS-CoV-2 (PCR) (Not Detectd) Disposition Clinical Impression: Coronavirus infection Disposition: ADMITTED IP TO THIS HOSP Condition: Fair Prescriptions: Molnupiravir [Lagevrio (Eua)] 800 mg PO BID 5 Days #40 cap Referrals: Edmund Huynh MD [Primary Care Provider] - 1-2 days Decision Time: 11:34
[2022-02-02 07:44] LABS: Basophils % (A) 1 %; Eosinophils % (A) 0 %; HCT 44.4 % (39.0-53.0); HGB 15.3 gm/dL (13.0-17.5); Lymphocytes # (A) 0.9 k/uL (1.0-4.8); Lymphocytes % (A) 12 %; MCH 31.5 pg (25.0-35.0); MCHC 34.6 g/dL (31.0-37.0); MCV 91.2 fL (80.0-100.0); Mean Platelet Volume 8.3; Monocytes # (A) 0.3 k/uL (0-1.0); Monocytes % (A) 4 %; Neutrophils # (A) 5.8 k/uL (1.3-7.7); Neutrophils % (A) 82 %; Platelet Count 228 k/uL (150-450); RBC 4.86 m/uL (4.30-5.90); RDW 12.8 % (11.5-15.5); WBC 7.1 k/uL (3.8-10.6)
[2022-02-02 08:01] LABS: ALT 22 U/L (4-49); AST 29 U/L (17-59); African American GFR (CKD) >90 (>60 ml/min/1.73 sqM); Albumin 4.4 g/dL (3.5-5.0); Alkaline Phosphatase 76 U/L (38-126); Anion Gap 9 mmol/L; Blood Urea Nitrogen 15 mg/dL (9-20); Carbon Dioxide 26 mmol/L (22-30); Chloride 104 mmol/L (98-107); Creatine Kinase 152 U/L (55-170); Glucose 111 mg/dL (74-99); Magnesium 2.2 mg/dL (1.6-2.3); Non-African American GFR(CKD) >90 (>60 ml/min/1.73 sqM); Potassium 4.8 mmol/L (3.5-5.1); Sodium 139 mmol/L (137-145); Total Bilirubin 0.9 mg/dL (0.2-1.3); Total Protein 7.7 g/dL (6.3-8.2)
[2022-02-02 08:05] LABS: INR 0.9 (<1.2); Prothrombin Time 10.1 sec (9.0-12.0)
--- NOTE | 2022-02-02 08:05 | XR ---
EXAMINATION TYPE: XR pelvis AP view DATE OF EXAM: 02/02/2022 CLINICAL HISTORY: Fall injury with pain TECHNIQUE: A single AP view of the pelvis is obtained. COMPARISON: Prior pelvic x-ray August 09, 2018 FINDINGS: There is no acute fracture/dislocation evident in the pelvis. Metallic artifact from right hip arthroplasty is stable and satisfactory in position. Left hip joint shows persistent mild axial joint space loss and acetabular spurring. Surgical clips overlie the left pelvis. Asymmetric narrowi ng of the right sacroiliac joint redemonstrated. Pubic symphysis remains intact. Occasional scattered tiny pelvic phleboliths redemonstrated. IMPRESSION: There is no acute fracture or dislocation in the pelvis. No significant change from prio r.
--- NOTE | 2022-02-02 08:06 | XR ---
EXAMINATION TYPE: XR chest 1V portable DATE OF EXAM: 02/02/2022 COMPARISON: Chest x-ray February 22, 2020 HISTORY: Fall injury with pain. TECHNIQUE: Single frontal view of the chest is obtained. FINDINGS: Elevated left hemidiaphragm. There is no suspicious focal air space opacity, pleural effus ion, or pneumothorax seen. The cardiac silhouette size is stable and mildly enlarged. Overlying EKG leads are in current study noted. The osseous structures are demineralized. IMPRESSION: Mild cardiomegaly without acute pulmonary process. No significant change from prior.
--- NOTE | 2022-02-02 08:18 | CT ---
EXAMINATION TYPE: CT brain cspine wo con DATE OF EXAM: 02/02/2022 COMPARISON: Prior trauma CT November 08, 2020 HISTORY: Fall, history of CVA, neck pain. CT DLP: 1549.4 mGycm. Automated Exposure Control for Dose Reduction was Utilized. TECHNIQUE: CT scan of the head and cervical spine are performed without contrast. FINDINGS: There is no acute intracranial hemorrhage or midline shift identified. Mild ventricular a nd sulcal prominence redemonstrated. Old infarct or encephalomalacia in the left MCA distribution aga in seen with left-sided ex vacuo dilatation. The calvarium remains intact. Nasal septum remains devia doug to right of midline. The globes are intact and the visualized sinuses are clear. Cervical spine is visualized in its entirety from C1 through upper thoracic levels and redemonstrate scoliotic curvature without evidence of acute fracture or dislocation. Prevertebral soft tissue roxy ins within normal limits. The C1-C2 articulation is within normal limits on the coronal images. Vert ebral body heights are maintained. Grade 1 retrolisthesis C4 on C5 is again seen. Advanced disc space narrowing C3-C4 through C6-C7 levels is redemonstrated. Review of axial images redemonstrates multilevel uncovertebral facet degenerative changes bilaterally contributing to multilevel bilateral neural foraminal narrowing. Thyroid gland remains within normal limits. Lung apices show no pneumothorax. IMPRESSION: 1. There is no acute fracture or dislocation evident in the cervical spine. 2. No acute intracranial hemorrhage or midline shift is seen. No significant change from prior CT.
--- NOTE | 2022-02-02 09:05 | CT ---
EXAMINATION TYPE: CT angio head neck DATE OF EXAM: 02/02/2022 HISTORY: Fall, altered mental status, history of CVA. Acute onset neurologic deficit. COMPARISON: CTA head and neck 2019. CT DLP: 540.5 mGycm. Automated Exposure Control for Dose Reduction was Utilized. TECHNIQUE: CTA scan of the head and neck is performed with IV Contrast, patient injected with 65 mL of Isovue 370, axial images are obtained, coronal and sagittal reformatted images are reviewed. 3D re constructed images are created on an independent workstation and reviewed. FINDINGS: Carotid/Vascular Structures: Normal 3 vessel origins from the aortic arch. No significant stenosis. S uboptimal study with areas of motion artifact. Visualized portions show moderate calcified plaque rig ht carotid bulb and more mild calcified left carotid bulb without consistent stenosis. Patent externa l carotid arteries bilaterally without significant stenosis. Tortuous right internal carotid artery i s seen. There is complete occlusion of the left internal carotid artery shortly after its origin elda lar to prior. There is hypoplastic or occluded distal right vertebral artery redemonstrated. Dominant left vertebra l artery fills the basilar artery with slight tortuous course. Patent bilateral posterior communicati ng arteries are redemonstrated. No new significant focal stenosis or aneurysm in the posterior circul ation. Persistent hypoplastic right P1 segment with filling of the P2 segment due to patent posterior communicating artery. Persistent patent anterior to indicating artery. Moderate calcified plaque dis maria elena right internal carotid artery. There is filling of the anterior and middle cerebral arteries due to collateral flow at the level of the [place]. No new focal stenosis or aneurysm is evident in the anterior circulation. Other: Grade 1 retrolisthesis C4 on C5 and C6 on C7 redemonstrated. Persistent severe disc space narr owing C3-C4 through C6-C7 levels redemonstrated. IMPRESSION: 1. Suboptimal study similar to prior. Complete occlusion of the left internal carotid artery shortly after its origin redemonstrated. No obvious new significant stenosis in the common or internal caroti d arteries bilaterally. 2. No obvious new significant stenosis or aneurysm at the level of the [place]. No significant change from prior study 2019. NASCET criteria was used in interpretation of this exam?
--- NOTE | 2022-02-02 10:03 | XR ---
EXAMINATION TYPE: XR forearm RT DATE OF EXAM: 02/02/2022 CLINICAL HISTORY: Fall injury with pain. TECHNIQUE: Two views of the right forearm are obtained. COMPARISON: None. FINDINGS: Demineralization is present which is noted to lower radiographic sensitivity. There is no acute fracture or dislocation seen in the right radius or ulna. Surgical change at level of the olecr anon is present. Suboptimal evaluation of the carpal joint spaces due to overlying hand on frontal pr ojection. Mild distal arterial vascular calcification is noted. IMPRESSION: There is no acute fracture or dislocation seen in the right radius or ulna.
[2022-02-02 11:26] LABS: Appearance,Urine Clear (Clear); Bilirubin,Urine Negative (Negative); Blood,Urine Negative (Negative); Color,Urine Yellow; Glucose,Urine (UA) Negative (Negative); Ketones,Urine 1+ (Negative); Leukocyte Esterase,Urine Negative (Negative); Nitrite,Urine Negative (Negative); Protein,Urine Trace (Negative); Specific Gravity,Urine >1.050 (1.001-1.035); Urobilinogen,Urine <2.0 mg/dL (<2.0)
[2022-02-02] MEDS ORDERED: ACETAMINOPHEN TAB 325 MG TAB PO PRN (11:26)
[2022-02-02] MEDS ORDERED: NALOXONE 0.4 MG/ML 1 ML VIAL IV PRN (11:26)
[2022-02-02] MEDS: SODIUM CHLORIDE 0.9% 1,000 ML IV SCH (11:45)
--- NOTE | 2022-02-02 16:44 | P.HPIM ---
History of Present Illness H&P Date: 02/02/22 Chief Complaint: found down Patient is a 71-year-old male with history of prior CVA with residual right- sided deficits, dyslipidemia, hypertension presenting from snf facility after found on the ground for an unknown period of time. Patient is alert and orientated 1 at baseline. He is a very poor historian and does not know how he ended up in the hospital. However, per chart review patient was found on the floor in his apartment covered in feces. He did not appear more confused than normal. EMS was called, patient was brought to the hospital. He denies any current chest pain, shortness of breath, cough, headache, palpitations, abdominal pain, nausea, vomiting, diarrhea, constipation, or urinary complaints. He does complain of some right-sided shoulder and right hip pain. In the ED, his vital signs were stable. Labs were unremarkable. His COVID-19 test was positive. EKG showed bigeminy pattern. Chest x-ray showed no acute process. Right arm and pelvic x-ray were negative for any acute pathology. CTA head and neck showed left ICA complete occlusion. He was admitted for possible placement. Patient seen and examined at bedside. Pertinent positives and negatives as discussed in HPI, a complete review of systems was performed and all other systems are negative. Vital signs reviewed General: nontoxic, no distress, appears at stated age Derm: warm, dry Head: atraumatic, normocephalic, symmetric Eyes: EOMI, no lid lag, anicteric sclera, pupils equal round reactive to light ENT: Nose and ears atraumatic Neck: No thyromegaly, supple Mouth: no lip lesion, mucus membranes moist Cardiovascular: S1S2 reg, no murmur, no edema Lungs: clear to auscultation bilateral, no rhonchi, no rales, no wheeze, no accessory muscle use Abdominal: soft, nontender to palpation, no guarding, no appreciable organomegaly Ext: no gross muscle atrophy, muscle strength muscle strength 5 out of 5 in all 4 extremities, no contractures Neuro: CN II-XII grossly intact Psych: Alert, oriented, appropriate affect Assessment/Plan: Asymptomatic COVID-19 infection Debility -PT/OT/social work Chronic medical problems: Dementia History of CVA Hypertension Dyslipidemia - Continue home medications - Patient is also on Lasix 20 mg twice a day and Robaxin, unsure when he last took it, we'll hold for now The patient is admitted with an anticipated less than 2 midnight stay for evaluation of asymptomatic COVID-19. Surrogate decision-maker: Power of banking attorney CODE STATUS: Full code DVT prophylaxis: lovenox Anticipated discharge date: 1-[address]: [facility] A total of 55 minutes was spent on the care of this complex patient more than 50% of the time was spent in counseling and care coordination. 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 pt has difficulties with memory impairment and expressive aphasia as well. History of Any Multi-Drug Resistant Organisms: None Reported Past Surgical History: No Surgical Hx Reported Past Anesthesia/Blood Transfusion Reactions: No Reported Reaction Past Psychological History: No Psychological Hx Reported Smoking Status: Former smoker Past Alcohol Use History: None Reported, Rare Past Drug Use History: None Reported - Past Family History Father History Unknown: Yes Medications and Allergies Home Medications Medication Instructions Recorded Confirmed Type Donepezil [Aricept] 10 mg PO DAILY 12/10/17 02/02/22 History Folic Acid 1 mg PO DAILY 12/10/17 02/02/22 History Memantine [Namenda] 5 mg PO BID 12/10/17 02/02/22 History Furosemide [Lasix] 20 mg PO BID 02/22/20 02/02/22 History Aspirin EC [Ecotrin Low Dose] 81 mg PO DAILY 11/08/20 02/02/22 History Clopidogrel [Plavix] 75 mg PO DAILY 11/08/20 02/02/22 History Rosuvastatin Calcium [Crestor] 20 mg PO HS 11/08/20 02/02/22 History amLODIPine [Norvasc] 5 mg PO DAILY 11/08/20 02/02/22 History Molnupiravir [Lagevrio (Eua)] 800 mg PO BID 5 Days #40 cap 02/02/22 Rx methocarbamoL [Robaxin] 500 mg PO BID 02/02/22 02/02/22 History Allergies Allergy/AdvReac Type Severity Reaction Status Date / Time No Known Allergies Allergy Verified 02/02/22 10:58 Physical Exam Vitals: Vital Signs Temp Pulse Resp BP Pulse Ox 02/02/22 12:39 98 18 131/70 96 02/02/22 11:43 88 18 110/72 94 L 02/02/22 10:14 82 18 129/81 95 02/02/22 08:25 73 18 134/74 95 02/02/22 07:12 98.1 F 80 18 121/101 96 Intake and Output 02/02/22 02/02/22 02/02/22 06:59 14:59 22:59 Other: Weight 79.379 kg Results CBC & Chem 7: 02/02/22 07:32 02/02/22 07:32 Labs: Abnormal Lab Results - Last 24 Hours (Table) 02/02/22 02/02/22 02/02/22 Range/Units 07:32 07:32 07:32 Lymphocytes # 0.9 L (1.0-4.8) k/uL APTT 18.0 L (22.0-30.0) sec Glucose 111 H (74-99) mg/dL Ur Specific [place] (1.001-1.035) Urine Protein (Negative) Urine Ketones (Negative) SARS-CoV-2 (PCR) (Not Detectd) 02/02/22 02/02/22 Range/Units 07:41 11:05 Lymphocytes # (1.0-4.8) k/uL APTT (22.0-30.0) sec Glucose (74-99) mg/dL Ur Specific [place] >1.050 H (1.001-1.035) Urine Protein Trace H (Negative) Urine Ketones 1+ H (Negative) SARS-CoV-2 (PCR) Detected A (Not Detectd)
[2022-02-02] MEDS: ATORVASTATIN 40 MG TAB PO SCH (21:00)
[2022-02-02] MEDS: MEMANTINE 5 MG TAB PO SCH (21:00)
[2022-02-03] MEDS: CLOPIDOGREL 75 MG TAB PO SCH (08:37)
[2022-02-03] MEDS: amLODIPine 5 MG TAB PO SCH (08:37)
[2022-02-03] MEDS: ASPIRIN 81 MG PO SCH (08:37)
[2022-02-03] MEDS: ENOXAPARIN 40 MG/0.4 ML SYRINGE SQ SCH (08:37)
[2022-02-03] MEDS: FOLIC ACID 1 MG TAB PO SCH (08:37)
[2022-02-03] MEDS: MEMANTINE 5 MG TAB PO SCH ×2 (10:07→20:58)
[2022-02-03] MEDS: DONEPEZIL 10 MG TAB PO SCH (10:07)
--- NOTE | 2022-02-03 11:12 | P.PN ---
Subjective Progress Note Date: 02/03/22 Principal diagnosis: debility Hospital Course: 71-year-old male with history of prior CVA with residual right-sided deficits, dyslipidemia, hypertension presenting from senior care facility after found on the ground for an unknown period of time. In the ED, his vital signs were stable. Labs were unremarkable. His COVID-19 test was positive. EKG showed b igeminy pattern. Chest x-ray showed no acute process. Right arm and pelvic x- ray were negative for any acute pathology. CTA head and neck showed left ICA complete occlusion. He was admitted for possible placement. Subjective: Patient seen and examined at bedside. No acute events overnight. He denies any chest pain, shortness of breath, abdominal pain, urinary or bowel complaints. Pertinent positives and negatives as discussed above, a complete review of systems was performed and all other systems are negative. Vitals Signs Reviewed. General: nontoxic, no distress, appears at stated age Derm: warm, dry Head: atraumatic, normocephalic, symmetric Eyes: EOMI, no lid lag, anicteric sclera Mouth: no lip lesion, mucus membranes moist Cardiovascular: S1S2 reg, no murmur Lungs: CTA bilateral, no rhonchi, no rales , no accessory muscle use Abdominal: soft, nontender to palpation, no guarding, no appreciable organomegaly Ext: Contracted right upper extremity, 3/5 strength in upper and lower extremity on the right, left lower extremity and upper extremity normal Neuro: CN II-XI grossly intact Psych: Alert, oriented, appropriate affect Assessment and Plan: Asymptomatic COVID-19 infection Debility -PT/OT/social work Chronic medical problems: Dementia History of CVA Hypertension Dyslipidemia - Continue home medications - Patient is also on Lasix 20 mg twice a day and Robaxin, unsure when he last took it, we'll hold for now DVT ppx: Lovenox Code status: Full code Anticipated discharge place: [facility] Anticipated discharge time: 1-2 days Objective - Vital Signs Vital signs: Vital Signs Temp 98.3 F 02/03/22 08:49 Pulse 79 02/03/22 08:49 Resp 16 02/03/22 08:49 BP 134/75 02/03/22 08:49 Pulse Ox 93 L 02/03/22 08:49 FiO2 Intake & Output 02/02/22 02/03/22 02/03/22 18:59 06:59 18:59 Intake Total 500 Output Total 400 Balance -400 500 Weight 79.379 kg 79.379 kg Intake: Oral 500 Output: Urine 400 Other: Voiding Method Diaper Incontinent # Voids 3 - Labs CBC & Chem 7: 02/02/22 07:32 02/02/22 07:32 Labs: Abnormal Lab Results - Last 24 Hours (Table) 02/02/22 Range/Units 11:05 Ur Specific [place] >1.050 H (1.001-1.035) Urine Protein Trace H (Negative) Urine Ketones 1+ H (Negative)
[2022-02-03] MEDS: SODIUM CHLORIDE 0.9% 1,000 ML IV SCH (13:08)
[2022-02-03] MEDS: ATORVASTATIN 40 MG TAB PO SCH (20:40)
[2022-02-04] MEDS: MEMANTINE 5 MG TAB PO SCH ×2 (08:48→20:58)
[2022-02-04] MEDS: ENOXAPARIN 40 MG/0.4 ML SYRINGE SQ SCH (08:48)
[2022-02-04] MEDS: FOLIC ACID 1 MG TAB PO SCH (08:48)
[2022-02-04] MEDS: amLODIPine 5 MG TAB PO SCH (08:48)
[2022-02-04] MEDS: DONEPEZIL 10 MG TAB PO SCH (08:48)
[2022-02-04] MEDS: CLOPIDOGREL 75 MG TAB PO SCH (08:48)
[2022-02-04] MEDS: ASPIRIN 81 MG PO SCH (08:48)
--- NOTE | 2022-02-04 12:27 | P.PN ---
Subjective Progress Note Date: 02/04/22 Principal diagnosis: debility Hospital Course: 71-year-old male with history of prior CVA with residual right-sided deficits, dyslipidemia, hypertension presenting from care home facility after found on the ground for an unknown period of time. In the ED, his vital signs were stable. Labs were unremarkable. His COVID-19 test was positive. EKG showed b igeminy pattern. Chest x-ray showed no acute process. Right arm and pelvic x- ray were negative for any acute pathology. CTA head and neck showed left ICA complete occlusion. He was admitted for possible placement. Subjective: Patient seen and examined at bedside. No acute events overnight. He denies any chest pain, shortness of breath, abdominal pain, urinary or bowel complaints. Per nursing, patient able to ambulate with his walker. Pertinent positives and negatives as discussed above, a complete review of systems was performed and all other systems are negative. Vitals Signs Reviewed. General: nontoxic, no distress, appears at stated age Derm: warm, dry Head: atraumatic, normocephalic, symmetric Eyes: EOMI, no lid lag, anicteric sclera Mouth: no lip lesion, mucus membranes moist Cardiovascular: S1S2 reg, no murmur Lungs: CTA bilateral, no rhonchi, no rales , no accessory muscle use Abdominal: soft, nontender to palpation, no guarding, no appreciable organomegaly Ext: Contracted right upper extremity, 3/5 strength in upper and lower extremity on the right, left lower extremity and upper extremity normal Neuro: CN II-XI grossly intact Psych: Alert, oriented, appropriate affect Assessment and Plan: Asymptomatic COVID-19 infection Debility -PT/OT/social work Chronic medical problems: Dementia History of CVA Hypertension Dyslipidemia - Continue home medications - Patient is also on Lasix 20 mg twice a day and Robaxin, unsure when he last took it, we'll hold for now DVT ppx: Lovenox Code status: Full code Anticipated discharge place: rehab vs home Anticipated discharge time: today or tomorrow Objective - Vital Signs Vital signs: Vital Signs Temp 98.4 F 02/04/22 08:35 Pulse 74 02/04/22 08:35 Resp 16 02/04/22 08:35 BP 132/79 02/04/22 08:35 Pulse Ox 93 L 02/04/22 08:35 FiO2 Intake & Output 02/03/22 02/04/22 02/04/22 18:59 06:59 18:59 Intake Total 354 240 Balance 354 240 Intake: Oral 354 240 Other: # Voids 2 1 - Labs CBC & Chem 7: 02/02/22 07:32 02/02/22 07:32
[2022-02-04] MEDS: SODIUM CHLORIDE 0.9% 1,000 ML IV SCH (14:32)
[2022-02-04] MEDS: ATORVASTATIN 40 MG TAB PO SCH (20:58)
[2022-02-05] MEDS: MEMANTINE 5 MG TAB PO SCH ×2 (08:58→20:37)
[2022-02-05] MEDS: ASPIRIN 81 MG PO SCH (08:58)
[2022-02-05] MEDS: CLOPIDOGREL 75 MG TAB PO SCH (08:58)
[2022-02-05] MEDS: DONEPEZIL 10 MG TAB PO SCH (08:58)
[2022-02-05] MEDS: ENOXAPARIN 40 MG/0.4 ML SYRINGE SQ SCH (08:58)
[2022-02-05] MEDS: FOLIC ACID 1 MG TAB PO SCH (08:58)
[2022-02-05] MEDS: amLODIPine 5 MG TAB PO SCH (08:58)
--- NOTE | 2022-02-05 11:14 | P.PN ---
Subjective Progress Note Date: 02/05/22 Principal diagnosis: debility Hospital Course: 71-year-old male with history of prior CVA with residual right-sided deficits, dyslipidemia, hypertension presenting from [facility]-way facility after found on the ground for an unknown period of time. In the ED, his vital signs were stable. Labs were unremarkable. His COVID-19 test was positive. EKG showed b igeminy pattern. Chest x-ray showed no acute process. Right arm and pelvic x- ray were negative for any acute pathology. CTA head and neck showed left ICA complete occlusion. He was admitted for possible placement. Subjective: Patient seen and examined at bedside. No acute events overnight. He denies any chest pain, shortness of breath, abdominal pain, urinary or bowel complaints. Per nursing, patient able to ambulate with his walker. Pertinent positives and negatives as discussed above, a complete review of systems was performed and all other systems are negative. Vitals Signs Reviewed. General: nontoxic, no distress, appears at stated age Derm: warm, dry Head: atraumatic, normocephalic, symmetric Eyes: EOMI, no lid lag, anicteric sclera Mouth: no lip lesion, mucus membranes moist Cardiovascular: S1S2 reg, no murmur Lungs: CTA bilateral, no rhonchi, no rales , no accessory muscle use Abdominal: soft, nontender to palpation, no guarding, no appreciable organomegaly Ext: Contracted right upper extremity, 3/5 strength in upper and lower extremity on the right, left lower extremity and upper extremity normal Neuro: CN II-XI grossly intact Psych: Alert, oriented, appropriate affect Assessment and Plan: Asymptomatic COVID-19 infection Debility -PT/OT/social work Chronic medical problems: Dementia History of CVA Hypertension Dyslipidemia - Continue home medications - Patient is also on Lasix 20 mg twice a day and Robaxin, unsure when he last took it, we'll hold for now DVT ppx: Lovenox Code status: Full code Anticipated discharge place: rehab Anticipated discharge time: likely monday Objective - Vital Signs Vital signs: Vital Signs Temp 98 F 02/05/22 07:00 Pulse 67 02/05/22 08:00 Resp 18 02/05/22 07:00 BP 123/73 02/05/22 07:00 Pulse Ox 95 02/05/22 07:00 FiO2 Intake & Output 02/04/22 02/05/22 02/05/22 18:59 06:59 18:59 Intake Total 598 240 Balance 598 240 Intake: Intake, IV Titration 0 Amount Sodium Chloride 0.9% 1, 0 000 ml @ 20 mls/hr IV . Q24H [facility] Rx#:[id number] Oral 598 240 Other: Voiding Method Diaper Incontinent # Voids 2 2 # Bowel Movements 1 - Labs CBC & Chem 7: 02/02/22 07:32 02/02/22 07:32
[2022-02-05] MEDS: SODIUM CHLORIDE 0.9% 1,000 ML IV SCH (13:30)
[2022-02-05] MEDS: ATORVASTATIN 40 MG TAB PO SCH (20:37)
[2022-02-06] MEDS: MEMANTINE 5 MG TAB PO SCH ×2 (08:29→20:11)
[2022-02-06] MEDS: amLODIPine 5 MG TAB PO SCH (08:29)
[2022-02-06] MEDS: DONEPEZIL 10 MG TAB PO SCH (08:29)
[2022-02-06] MEDS: FOLIC ACID 1 MG TAB PO SCH (08:30)
[2022-02-06] MEDS: CLOPIDOGREL 75 MG TAB PO SCH (08:30)
[2022-02-06] MEDS: ENOXAPARIN 40 MG/0.4 ML SYRINGE SQ SCH (08:30)
[2022-02-06] MEDS: ASPIRIN 81 MG PO SCH (08:30)
--- NOTE | 2022-02-06 10:37 | P.PN ---
Subjective Progress Note Date: 02/06/22 Principal diagnosis: debility Hospital Course: 71-year-old male with history of prior CVA with residual right-sided deficits, dyslipidemia, hypertension presenting from group home facility after found on the ground for an unknown period of time. In the ED, his vital signs were stable. Labs were unremarkable. His COVID-19 test was positive. EKG showed b igeminy pattern. Chest x-ray showed no acute process. Right arm and pelvic x- ray were negative for any acute pathology. CTA head and neck showed left ICA complete occlusion. He was admitted for possible placement. Subjective: Patient seen and examined at bedside. No acute events overnight. He denies any chest pain, shortness of breath, abdominal pain, urinary or bowel complaints. Per nursing, patient able to ambulate with his walker. Pertinent positives and negatives as discussed above, a complete review of systems was performed and all other systems are negative. Vitals Signs Reviewed. General: nontoxic, no distress, appears at stated age Derm: warm, dry Head: atraumatic, normocephalic, symmetric Eyes: EOMI, no lid lag, anicteric sclera Mouth: no lip lesion, mucus membranes moist Cardiovascular: no edema Lungs: no accessory muscle use Abdominal: soft, nontender to palpation, no guarding Ext: Contracted right upper extremity, 3/5 strength in upper and lower extremity on the right, left lower extremity and upper extremity normal Neuro: CN II-XI grossly intact Psych: Alert, oriented, appropriate affect Assessment and Plan: Asymptomatic COVID-19 infection Debility -PT/OT/social work Chronic medical problems: Dementia History of CVA Hypertension Dyslipidemia - Continue home medications - Patient is also on Lasix 20 mg twice a day and Robaxin, unsure when he last took it, we'll hold for now DVT ppx: Lovenox Code status: Full code Anticipated discharge place: rehab Anticipated discharge time: likely monday Objective - Vital Signs Vital signs: Vital Signs Temp 97.8 F 02/06/22 07:00 Pulse 68 02/06/22 07:00 Resp 18 02/06/22 07:00 BP 132/74 02/06/22 07:00 Pulse Ox 95 02/06/22 07:00 FiO2 Intake & Output 02/05/22 02/06/22 02/06/22 18:59 06:59 18:59 Intake Total 720 Balance 720 Intake: Oral 720 Other: Voiding Method Diaper Incontinent # Voids 1 2 - Labs CBC & Chem 7: 02/02/22 07:32 02/02/22 07:32
[2022-02-06] MEDS: SODIUM CHLORIDE 0.9% 1,000 ML IV SCH (12:55)
[2022-02-06] MEDS: ATORVASTATIN 40 MG TAB PO SCH (20:11)
[2022-02-07] MEDS: amLODIPine 5 MG TAB PO SCH (09:04)
[2022-02-07] MEDS: ENOXAPARIN 40 MG/0.4 ML SYRINGE SQ SCH (09:04)
[2022-02-07] MEDS: ASPIRIN 81 MG PO SCH (09:04)
[2022-02-07] MEDS: MEMANTINE 5 MG TAB PO SCH (09:04)
[2022-02-07] MEDS: FOLIC ACID 1 MG TAB PO SCH (09:04)
[2022-02-07] MEDS: DONEPEZIL 10 MG TAB PO SCH (09:04)
[2022-02-07] MEDS: CLOPIDOGREL 75 MG TAB PO SCH (09:04)
[2022-02-07] MEDS: SODIUM CHLORIDE 0.9% 1,000 ML IV SCH (09:05)
[2022-02-07 12:50] VITALS: BP 116/69; PULSE 78; RESP 16; TEMP 98.5
--- NOTE | 2022-02-07 14:36 | P.DS ---
Providers Date of admission: 02/02/22 11:26 Expected date of discharge: 02/07/22 Attending physician: Sebastian Esqueda MD [facility] Course: Discharge Diagnosis: Asymptomatic COVID-19 infection Debility Dementia History of CVA Hypertension Dyslipidemia Hospital Course: 71-year-old male with history of prior CVA with residual right-sided deficits, dyslipidemia, hypertension presenting from custodial facility after found on the ground for an unknown period of time. In the ED, his vital signs were stable. Labs were unremarkable. His COVID-19 test was positive. EKG showed bigeminy pattern. Chest x-ray showed no acute process. Right arm and pelvic x- ray were negative for any acute pathology. CTA head and neck showed left ICA complete occlusion. Patient remained asymptomatic while in the hospital. Patient is also on Lasix 20 mg twice a day and Robaxin, unsure when he last took it. We'll discontinue for now, can be restarted outpatient by primary care doctor. Patient seen and examined at bedside. Vital signs reviewed and stable. General: nontoxic, no distress, appears at stated age Derm: warm, dry Head: atraumatic, normocephalic, symmetric Eyes: EOMI, no lid lag, anicteric sclera Mouth: no lip lesion, mucus membranes moist Cardiovascular: no edema Lungs: no accessory muscle use Abdominal: soft, nontender to palpation, no guarding Ext: Contracted right upper extremity, 3/5 strength in upper and lower extremity on the right, left lower extremity and upper extremity normal Neuro: CN II-XI grossly intact Psych: Alert, oriented, appropriate affect A total of 36 minutes of time were spent preparing this complex discharge summary. Patient was discharged on 02/07/22 at 14:33. Patient Condition at Discharge: Stable Plan - Discharge Summary New Discharge Prescriptions: New Molnupiravir [Lagevrio (Eua)] 800 mg PO BID 5 Days #40 cap Continue Memantine [Namenda] 5 mg PO BID Folic Acid 1 mg PO DAILY Donepezil [Aricept] 10 mg PO DAILY Clopidogrel [Plavix] 75 mg PO DAILY amLODIPine [Norvasc] 5 mg PO DAILY Aspirin EC [Ecotrin Low Dose] 81 mg PO DAILY Rosuvastatin Calcium [Crestor] 20 mg PO HS Discontinued Furosemide [Lasix] 20 mg PO BID methocarbamoL [Robaxin] 500 mg PO BID Discharge Medication List Donepezil [Aricept] 10 mg PO DAILY 12/10/17 [History] Folic Acid 1 mg PO DAILY 12/10/17 [History] Memantine [Namenda] 5 mg PO BID 12/10/17 [History] Aspirin EC [Ecotrin Low Dose] 81 mg PO DAILY 11/08/20 [History] Clopidogrel [Plavix] 75 mg PO DAILY 11/08/20 [History] Rosuvastatin Calcium [Crestor] 20 mg PO HS 11/08/20 [History] amLODIPine [Norvasc] 5 mg PO DAILY 11/08/20 [History] Molnupiravir [Lagevrio (Eua)] 800 mg PO BID 5 Days #40 cap 02/02/22 [Rx] Follow up Appointment(s)/Referral(s): Edmund Huynh MD [Primary Care Provider] - 1-2 days Patient Instructions/Handouts: COVID-19 (Coronavirus Disease 2019) (DC) Activity/Diet/Wound Care/Special Instructions: Please see your PCP in 1-2 days. Discharge Disposition: HOME SELF-CARE
== END 2022-02-07 15:36 | disposition home or self-care (01) ==
LOC: EC 07:11 → 6NMEDSUR 11:26
PROVIDERS: ADMIT Student in an Organized Health Care Education/Training Program; ATTEND Student in an Organized Health Care Education/Training Program
DX: U07.1 COVID-19 (principal); F03.90 Unspecified dementia, unspecified severity, without behavioral disturbance, psychotic disturbance, mood disturbance, and anxiety; I11.9 Hypertensive heart disease without heart failure; I69.351 Hemiplegia and hemiparesis following cerebral infarction affecting right dominant side; I69.322 Dysarthria following cerebral infarction; I69.320 Aphasia following cerebral infarction; I49.3 Ventricular premature depolarization; E78.5 Hyperlipidemia, unspecified; I77.1 Stricture of artery; I65.22 Occlusion and stenosis of left carotid artery; I87.8 Other specified disorders of veins; Z79.899 Other long term (current) drug therapy; Z79.82 Long term (current) use of aspirin; Z96.641 Presence of right artificial hip joint; Z87.891 Personal history of nicotine dependence; Z79.02 Long term (current) use of antithrombotics/antiplatelets
CPT/HCPCS: 96372 ×5; 99285; 36415; 93005; 97530 ×2; 97162; 97535 ×2; 97167; 80053; 82550; 83605; 83735; 84484; 85025; 85610; 85730; 81003; 87636; 72170; 73090; 71045; 72125; 70496; 70450; 70498; G0378 ×6; J1650 ×5; Q9967

== ENCOUNTER 2022-02-21 16:59 | Emergency (ER) | payer OTHER ==
[2022-02-21 17:15] VITALS: TEMP 98.5
--- NOTE | 2022-02-21 17:34 | ED ---
General Adult HPI - General Chief complaint: Fall Stated complaint: Fall Time Seen by Provider: 02/21/22 17:16 Source: patient, EMS Mode of arrival: EMS Limitations: no limitations - History of Present Illness Initial comments: Dictation was produced using [employer]ver[employer] dictation software. please excuse any grammatical, word or spelling errors. Chief Complaint: 71-year-old male presents to emergency department after fall History of Present Illness: 71-year-old male he has history of frequent falls. Patient lives at assisted living facility. Family member at the bedside states that she received a call from him earlier today since that he fell and couldn't get up. Assisted living facility staff was notified and went to check on the patient. EMS was called and patient brought to the ER. There was some bleeding on patient's forehead. Patient does not really remember how he fell. States that he likely tripped. The ROS documented in this emergency department record has been reviewed and confirmed by me. Those systems with pertinent positive or negative responses have been documented in the HPI. All other systems are other negative and/or noncontributory. PHYSICAL EXAM: General Impression: Alert and oriented x3, not in acute distress HEENT: 3 mm laceration just above the right eyebrow, well approximated, extra-ocular movements intact, pupils equal and reactive to light bilaterally, mucous membranes moist. Cardiovascular: Heart regular rate and rhythm Chest: Able to complete full sentences, no retractions, no tachypnea Abdomen: abdomen soft, non-tender, non-distended, no organomegaly Musculoskeletal: Pulses present and equal in all extremities, no peripheral edema Motor: no focal deficits noted Neurological: CN II-XII grossly intact, no focal motor or sensory deficits noted Skin: Intact with no visualized rashes Psych: Normal affect and mood ED course: 71-year-old male with past medical history of frequent falls presents emergency department for another fall. Vital signs upon arrival are within acce ptable limits. Nursing notes and chart review was performed My EKG interpretation: Ventricular rate 75, sinus rhythm,. Interval 90, QRS 109, QTC 4 weight. No MI prolongation, no QTC prolongation, no ST or T-wave changes noted. EKG compared to 02/02/2022 showing no changes. Overall, this EKG is unremarkable Computed tomography scan of the head and C-spine shows no acute processes. Laceration was repaired with Steri-Strip. Femur x-ray is unremarkable. Pelvis x-rays nonacute. Hand x-ray is negative. Elbow x-rays negative. Chest x-rays nonacute. No evidence of rhabdomyolysis. Labs are unremarkable. Laboratory evaluation obtained. CBC, metabolic panel is unremarkable. Urinalysis is negative. Patient observed in emergency department for 6 hours and 36 minutes. Reevaluated bedside 11:40 PM found to be stable medical condition. I had patient's family speak with skilled nursing case manager. He will open a case with patient's primary care doctor for better outpatient assistance. Patient is agreeable discharge. - Related Data Home Medications Medication Instructions Recorded Confirmed Donepezil [Aricept] 10 mg PO HS 12/10/17 02/21/22 Folic Acid 1 mg PO DAILY 12/10/17 02/21/22 Memantine [Namenda] 5 mg PO BID 12/10/17 02/21/22 Aspirin EC [Ecotrin Low Dose] 81 mg PO DAILY 11/08/20 02/21/22 Clopidogrel [Plavix] 75 mg PO DAILY 11/08/20 02/21/22 Rosuvastatin Calcium [Crestor] 20 mg PO HS 11/08/20 02/21/22 amLODIPine [Norvasc] 5 mg PO DAILY 11/08/20 02/21/22 Acetaminophen Tab [Tylenol Tab] 1,000 mg PO TID PRN 02/21/22 02/21/22 Furosemide [Lasix] 20 mg PO BID 02/21/22 02/21/22 methocarbamoL [Robaxin] 500 mg PO BID 02/21/22 02/21/22 Allergies Allergy/AdvReac Type Severity Reaction Status Date / Time No Known Allergies Allergy Verified 02/21/22 17:14 Review of Systems ROS Statement: Those systems with pertinent positive or pertinent negative responses have been documented in the HPI. ROS Other: All systems not noted in ROS Statement are negative. 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 pt has difficulties with memory impairment and expressive aphasia as well. History of Any Multi-Drug Resistant Organisms: None Reported Past Surgical History: No Surgical Hx Reported Past Anesthesia/Blood Transfusion Reactions: No Reported Reaction Past Psychological History: No Psychological Hx Reported Smoking Status: Former smoker Past Alcohol Use History: None Reported, Rare Past Drug Use History: None Reported - Past Family History Father History Unknown: Yes General Exam Limitations: no limitations Course Vital Signs 02/21/22 02/21/22 02/21/22 17:05 19:02 20:41 Temperature 98.5 F Pulse Rate 72 79 72 Respiratory 16 18 16 Rate Blood Pressure 144/84 147/78 146/83 O2 Sat by Pulse 98 96 98 Oximetry 02/21/22 23:04 Temperature Pulse Rate 75 Respiratory 16 Rate Blood Pressure 151/88 O2 Sat by Pulse 95 Oximetry Medical Decision Making - Lab Data Result diagrams: 02/21/22 17:28 02/21/22 17:28 Lab Results 02/21/22 02/21/22 02/21/22 Range/Units 17:28 17:28 17:28 WBC 6.0 (3.8-10.6) k/uL RBC 4.66 (4.30-5.90) m/uL Hgb 14.4 (13.0-17.5) gm/dL Hct 43.4 (39.0-53.0) % MCV 93.2 (80.0-100.0) fL MCH 30.9 (25.0-35.0) pg MCHC 33.1 (31.0-37.0) g/dL RDW 13.5 (11.5-15.5) % Plt Count 195 (150-450) k/uL MPV 8.3 Neutrophils % 60 % Lymphocytes % 26 % Monocytes % 8 % Eosinophils % 3 % Basophils % 1 % Neutrophils # 3.6 (1.3-7.7) k/uL Lymphocytes # 1.6 (1.0-4.8) k/uL Monocytes # 0.5 (0-1.0) k/uL Eosinophils # 0.2 (0-0.7) k/uL Basophils # 0.0 (0-0.2) k/uL Sodium 139 (137-145) mmol/L Potassium 4.1 (3.5-5.1) mmol/L Chloride 105 (98-107) mmol/L Carbon Dioxide 26 (22-30) mmol/L Anion Gap 8 mmol/L BUN 19 (9-20) mg/dL Creatinine 0.73 (0.66-1.25) mg/dL Est GFR (CKD-EPI)AfAm >90 (>60 ml/min/1.73 sqM) Est GFR (CKD-EPI)NonAf >90 (>60 ml/min/1.73 sqM) Glucose 105 H (74-99) mg/dL Plasma Lactic Acid Florentino 1.1 (0.7-2.0) mmol/L Calcium 8.8 (8.4-10.2) mg/dL Magnesium 2.1 (1.6-2.3) mg/dL Total Bilirubin 0.7 (0.2-1.3) mg/dL AST 30 (17-59) U/L ALT 20 (4-49) U/L Alkaline Phosphatase 84 (38-126) U/L Creatine Kinase 91 (55-170) U/L Troponin I (0.000-0.034) ng/mL Total Protein 7.1 (6.3-8.2) g/dL Albumin 4.2 (3.5-5.0) g/dL Urine Color Urine Appearance (Clear) Urine pH (5.0-8.0) Ur Specific [place] (1.001-1.035) Urine Protein (Negative) Urine Glucose (UA) (Negative) Urine Ketones (Negative) Urine Blood (Negative) Urine Nitrite (Negative) Urine Bilirubin (Negative) Urine Urobilinogen (<2.0) mg/dL Ur Leukocyte Esterase (Negative) Urine RBC (0-5) /hpf Ur Squamous Epith Cells (0-4) /hpf Amorphous Sediment (None) /hpf Urine Mucus (None) /hpf 02/21/22 02/21/22 Range/Units 17:28 22:59 WBC (3.8-10.6) k/uL RBC (4.30-5.90) m/uL Hgb (13.0-17.5) gm/dL Hct (39.0-53.0) % MCV (80.0-100.0) fL MCH (25.0-35.0) pg MCHC (31.0-37.0) g/dL RDW (11.5-15.5) % Plt Count (150-450) k/uL MPV Neutrophils % % Lymphocytes % % Monocytes % % Eosinophils % % Basophils % % Neutrophils # (1.3-7.7) k/uL Lymphocytes # (1.0-4.8) k/uL Monocytes # (0-1.0) k/uL Eosinophils # (0-0.7) k/uL Basophils # (0-0.2) k/uL Sodium (137-145) mmol/L Potassium (3.5-5.1) mmol/L Chloride (98-107) mmol/L Carbon Dioxide (22-30) mmol/L Anion Gap mmol/L BUN (9-20) mg/dL Creatinine (0.66-1.25) mg/dL Est GFR (CKD-EPI)AfAm (>60 ml/min/1.73 sqM) Est GFR (CKD-EPI)NonAf (>60 ml/min/1.73 sqM) Glucose (74-99) mg/dL Plasma Lactic Acid Florentino (0.7-2.0) mmol/L Calcium (8.4-10.2) mg/dL Magnesium (1.6-2.3) mg/dL Total Bilirubin (0.2-1.3) mg/dL AST (17-59) U/L ALT (4-49) U/L Alkaline Phosphatase (38-126) U/L Creatine Kinase (55-170) U/L Troponin I <0.012 (0.000-0.034) ng/mL Total Protein (6.3-8.2) g/dL Albumin (3.5-5.0) g/dL Urine Color Yellow Urine Appearance Turbid (Clear) Urine pH 7.0 (5.0-8.0) Ur Specific [place] 1.024 (1.001-1.035) Urine Protein Trace H (Negative) Urine Glucose (UA) Negative (Negative) Urine Ketones Negative (Negative) Urine Blood Negative (Negative) Urine Nitrite Negative (Negative) Urine Bilirubin Negative (Negative) Urine Urobilinogen 2.0 (<2.0) mg/dL Ur Leukocyte Esterase Negative (Negative) Urine RBC <1 (0-5) /hpf Ur Squamous Epith Cells <1 (0-4) /hpf Amorphous Sediment Rare H (None) /hpf Urine Mucus Rare H (None) /hpf Disposition Clinical Impression: Fall Disposition: HOME SELF-CARE Instructions (If sedation given, give patient instructions): Fall Prevention for Older Adults (ED) Is patient prescribed a controlled substance at d/c from ED?: No Referrals: Jhonny Kwong MD [Primary Care Provider] - 1-2 days Time of Disposition: 23:37
[2022-02-21 17:38] LABS: Basophils % (A) 1 %; Eosinophils # (A) 0.2 k/uL (0-0.7); Eosinophils % (A) 3 %; HCT 43.4 % (39.0-53.0); HGB 14.4 gm/dL (13.0-17.5); Lymphocytes # (A) 1.6 k/uL (1.0-4.8); Lymphocytes % (A) 26 %; MCH 30.9 pg (25.0-35.0); MCHC 33.1 g/dL (31.0-37.0); MCV 93.2 fL (80.0-100.0); Mean Platelet Volume 8.3; Monocytes # (A) 0.5 k/uL (0-1.0); Monocytes % (A) 8 %; Neutrophils # (A) 3.6 k/uL (1.3-7.7); Neutrophils % (A) 60 %; Platelet Count 195 k/uL (150-450); RBC 4.66 m/uL (4.30-5.90); RDW 13.5 % (11.5-15.5)
[2022-02-21 17:53] LABS: ALT 20 U/L (4-49); AST 30 U/L (17-59); African American GFR (CKD) >90 (>60 ml/min/1.73 sqM); Albumin 4.2 g/dL (3.5-5.0); Alkaline Phosphatase 84 U/L (38-126); Anion Gap 8 mmol/L; Blood Urea Nitrogen 19 mg/dL (9-20); Calcium 8.8 mg/dL (8.4-10.2); Carbon Dioxide 26 mmol/L (22-30); Chloride 105 mmol/L (98-107); Creatine Kinase 91 U/L (55-170); Glucose 105 mg/dL (74-99); Magnesium 2.1 mg/dL (1.6-2.3); Non-African American GFR(CKD) >90 (>60 ml/min/1.73 sqM); Potassium 4.1 mmol/L (3.5-5.1); Sodium 139 mmol/L (137-145); Total Bilirubin 0.7 mg/dL (0.2-1.3); Total Protein 7.1 g/dL (6.3-8.2)
--- NOTE | 2022-02-21 19:19 | CT ---
EXAMINATION TYPE: CT brain cspine wo con CT DLP: 1446.1 mGycm, Automated exposure control for dose reduction was used. DATE OF EXAM: 02/21/2022 6:41 PM COMPARISON: 02/02/2022 CLINICAL INDICATION:Male, 71 years old with history of fall; pain after fall. hx of strokes. DLP 1446 .1 TECHNIQUE: Brain: Multiple axial CT images of the brain were obtained without IV contrast. Cspine: Axial CT images from the skull base to the inferior aspect of T2 we obtained without intraven ous contrast. Coronal and sagittal reformatted images were also reviewed. FINDINGS: Brain: Extra-axial spaces: No abnormal extra-axial fluid collections. Ventricular system: Dilatation in proportion to cerebral atrophy. Cerebral parenchyma: Left frontal and parietal region encephalomalacia from remote injury. Cerebral a trophy. No acute intraparenchymal hemorrhage or mass effect. The mc-white junction is well differe ntiated. Scattered hypoattenuating areas are seen within the white matter. Cerebellum: Unremarkable. Mass effect: No evidence of midline shift. Intracranial vasculature: unremarkable Soft tissues: Normal. Calvarium/osseous structures: No depressed skull fracture. Paranasal sinuses and mastoid air cells: Clear. Visualized orbits: Orbital contents are intact. Cervical spine: Fracture: None. Osseous structures: Multilevel degenerative disc disease changes with endplate spurring and disc oste ophyte complex's. Left lateral facets of C3 and C4 are ankylosed. Vertebral alignment: Within normal limits. Spinal canal/Neural Foramina: Disc osteophyte complexes at C3-C5 with at least mild spinal canal sten osis. No evidence for significant neural foraminal stenosis. Neck soft tissues: Prevertebral soft tissues are within normal limits. Other: The airway is patent. The lung apices are clear. IMPRESSION: 1. No acute intracranial process. 2. Similar left frontal and parietal region encephalomalacia. 3. No evidence of cervical spine fracture. 4. Mild multilevel degenerative disc disease.
--- NOTE | 2022-02-21 20:28 | XR ---
EXAMINATION TYPE: XR femur RT, XR pelvis AP view DATE OF EXAM: 02/21/2022 8:10 PM INDICATION: Patient age:Male; 71 years old; Reason for study: pain; COMPARISON: None TECHNIQUE: The right femur was examined in frontal and lateral projections. Frontal view of the pelvis. FINDINGS: No evidence of acute osseous pathology, joint dislocation, or soft tissue swelling Right hip arthroplasty changes. Hardware is intact. Surgical clips over the left pelvis. Osteophyte f ormation of the right tibial plateau and patella on the right IMPRESSION: 1. No acute osseous pathology. 2. Moderate right knee osteoarthrosis. 3. Right hip arthroplasty with hardware in appropriate position and intact.
--- NOTE | 2022-02-21 20:30 | XR ---
EXAMINATION TYPE: XR hand complete LT DATE OF EXAM: 02/21/2022 8:10 PM INDICATION: Patient age:Male; 71 years old; Reason for study: Fall; COMPARISON: None TECHNIQUE: Frontal, lateral and oblique views of the right hand were obtained. FINDINGS: Normal alignment of the visualized joints. No acute osseous pathology is identified. No e vidence of soft tissue swelling. Multifocal joint space narrowing and osteophyte formation. IMPRESSION: 1. No acute osseous pathology. 2. Mild multifocal osteoarthrosis.
--- NOTE | 2022-02-21 20:31 | XR ---
EXAMINATION TYPE: XR chest 2V DATE OF EXAM: 02/21/2022 8:10 PM COMPARISON: Chest radiographs from 02/02/2022 TECHNIQUE: XR chest 2V Frontal and lateral views of the chest. CLINICAL INDICATION:Male, 71 years old with history of fall; FINDINGS: Lungs/Pleura: Low lung volumes are present. There is no evidence of pleural effusion, focal consolida tion, or pneumothorax. Pulmonary vascularity: Unremarkable. Heart/mediastinum: Cardiomediastinal silhouette is unremarkable. Musculoskeletal: No acute osseous pathology. IMPRESSION: No acute cardiopulmonary disease/process.
--- NOTE | 2022-02-21 20:31 | XR ---
EXAMINATION TYPE: XR elbow complete LT DATE OF EXAM: 02/21/2022 8:10 PM INDICATION: Patient age:Male; 71 years old; Reason for study: Fall COMPARISON: None TECHNIQUE: The left elbow was examined in AP, lateral, and oblique projections. FINDINGS: No evidence of any acute osseous pathology, joint dislocation, or soft tissue swelling is n oted. No evidence of joint effusion is present. IMPRESSION: No evidence of acute fracture.
[2022-02-21 20:43] VITALS: RESP 16
[2022-02-21 23:05] VITALS: BP 151/88; PULSE 75
[2022-02-21 23:34] LABS: Amorphous Sediment,Urine Rare /hpf; Appearance,Urine Turbid (Clear); Bilirubin,Urine Negative (Negative); Blood,Urine Negative (Negative); Color,Urine Yellow; Glucose,Urine (UA) Negative (Negative); Ketones,Urine Negative (Negative); Leukocyte Esterase,Urine Negative (Negative); Mucus,Urine Rare /hpf; Nitrite,Urine Negative (Negative); Protein,Urine Trace (Negative); RBC,Urine <1 /hpf (0-5); Specific Gravity,Urine 1.024 (1.001-1.035); Squamous Epithelial Cell,Urine <1 /hpf (0-4)
== END 2022-02-22 00:20 | disposition home or self-care (01) ==
LOC: EC 16:59
DX: S01.112A Laceration without foreign body of left eyelid and periocular area, initial encounter (principal); Z86.73 Personal history of transient ischemic attack (TIA), and cerebral infarction without residual deficits; E78.5 Hyperlipidemia, unspecified; I10 Essential (primary) hypertension; Z87.891 Personal history of nicotine dependence; Z79.82 Long term (current) use of aspirin; Z79.899 Other long term (current) drug therapy; W01.0XXA Fall on same level from slipping, tripping and stumbling without subsequent striking against object, initial encounter
CPT/HCPCS: 36415; 70450; 71046; 72125; 72170; 80053; 81001; 82550; 83605; 83735; 84484; 85025; 93005; 99285

== ENCOUNTER 2022-05-28 13:00 | Emergency (ER) | payer OTHER ==
[2022-05-28] MEDS ORDERED: SODIUM CHLORIDE 0.9% 500 ML 500 ML IV STA (13:24)
--- NOTE | 2022-05-28 13:28 | ED ---
General Adult HPI - General Chief complaint: Abdominal Pain Stated complaint: Abd pain Time Seen by Provider: 05/28/22 13:10 Source: patient, EMS, RN notes reviewed, old records reviewed Mode of arrival: EMS Limitations: no limitations - History of Present Illness Initial comments: This is a 71-year-old male who presents emergency Department complaining of right upper quadrant abdominal pain that radiates around to the flank. Patient states it started 1 day ago. Patient denies any nausea vomiting or diarrhea. Patient denies any fever chills or cough. Documentation from the correction stated that the patient was having chest pain shortness of breath patient adamantly refuses that he was having chest pain or shortness of breath he states the pain is bad sometimes where he doesn't feel he couldn't take a full breath but is not short of breath. Patient denies any dysuria hematuria urinary frequency - Related Data Home Medications Medication Instructions Recorded Confirmed Donepezil [Aricept] 10 mg PO HS 12/10/17 04/18/22 Folic Acid 1 mg PO DAILY 12/10/17 04/18/22 Memantine [Namenda] 5 mg PO BID 12/10/17 04/18/22 Aspirin EC [Ecotrin Low Dose] 81 mg PO DAILY 11/08/20 04/18/22 Rosuvastatin Calcium [Crestor] 20 mg PO HS 11/08/20 04/18/22 amLODIPine [Norvasc] 5 mg PO DAILY 11/08/20 04/18/22 Furosemide [Lasix] 20 mg PO BID 02/21/22 04/18/22 Previous Rx's Medication Instructions Recorded Apixaban [Eliquis] 5 mg PO BID #0 tab 04/22/22 HYDROcodone/APAP 7.5-325MG [[place] 1 tab PO Q6HR #10 tab 04/22/22 7.5-325] Allergies Allergy/AdvReac Type Severity Reaction Status Date / Time No Known Allergies Allergy Verified 05/28/22 13:19 Review of Systems ROS Statement: Those systems with pertinent positive or pertinent negative responses have been documented in the HPI. ROS Other: All systems not noted in ROS Statement are negative. 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 pt has difficulties with memory impairment and expressive aphasia as well. History of Any Multi-Drug Resistant Organisms: None Reported Past Surgical History: No Surgical Hx Reported Additional Past Surgical History / Comment(s): right forearm hematoma evacuation Past Anesthesia/Blood Transfusion Reactions: No Reported Reaction Past Psychological History: No Psychological Hx Reported Smoking Status: Former smoker Past Alcohol Use History: None Reported, Rare Past Drug Use History: None Reported - Past Family History Father History Unknown: Yes General Exam - General Exam Comments Initial Comments: GENERAL: Patient is well-developed and well-nourished. Patient is nontoxic and well- hydrated and is in mild distress. ENT: Neck is soft and supple. No significant lymphadenopathy is noted. Oropharynx is clear. Moist mucous membranes. Neck has full range of motion without eliciting any pain. EYES: The sclera were anicteric and conjunctiva were pink and moist. Extraocular movements were intact and pupils were equal round and reactive to light. Eyelids were unremarkable. PULMONARY: Unlabored respirations. Good breath sounds bilaterally. No audible rales rhonc hi or wheezing was noted. CARDIOVASCULAR: There is a regular rate and rhythm without any murmurs gallops or rubs. ABDOMEN: Patient has mild right upper quadrant abdominal tenderness on palpation SKIN: Skin is clear with no lesions or rashes and otherwise unremarkable. NEUROLOGIC: Patient is alert and oriented x3. Cranial nerves II through XII are grossly intact. Patient has weakness on the right side compared to the left however had a previous CVA and he states this is normal MUSCULOSKELETAL: Normal extremities with adequate strength and full range of motion. LYMPHATICS: No significant lymphadenopathy is noted PSYCHIATRIC: Normal psychiatric evaluation. 6640 Limitations: no limitations Course Vital Signs 05/28/22 13:04 Temperature 97.8 F Pulse Rate 90 Respiratory 20 Rate Blood Pressure 121/75 O2 Sat by Pulse 94 L Oximetry Medical Decision Making - Medical Decision Making EKG was interpreted by myself shows a sinus rhythm with frequent PVCs at 79 bpm OK interval 190 QRS is under 12 QT interval 355 QTC is 390. Patient's EKG shows no ST segment elevation or depression. Was pt. sent in by a medical professional or institution (, PA, IS SUPPORT ANALYST, urgent care, hospital, or correction...) When possible be specific @ -Patient was sent into the hospital by the correction Did you speak to anyone other than the patient for history (EMS, parent, family, police, friend...)? What history was obtained from this source @ -No Did you review nursing and triage notes (agree or disagree)? Why? @ -I reviewed and agree with nursing and triage notes Were old charts reviewed (outside hosp., previous admission, EMS record, old EKG, old radiological studies, urgent care reports/EKG's, correction records)? Report findings @ -I reviewed prior lab work and radiological studies on this patient Differential Diagnosis (chest pain, altered mental status, abdominal pain women, abdominal pain men, vaginal bleeding, weakness, fever, dyspnea, syncope, headache, dizziness, GI bleed, back pain, seizure, CVA, palpatations, mental health, musculoskeletal)? @ -Differential Abdominal Pain Men: Appendicitis, cholecystitis, diverticulosis, ischemic bowel, pancreatitis, hepatitis, UTI, gastroenteritis, AAA, incarcerated hernia, bowel obstruction, co nstipation, inflammatory bowel, hepatitis, peptic ulcer disease, splenic infarction, perforated viscus, testicular torsion, this is not meant to be an all-inclusive list EKG interpreted by me (3pts min.). @ -As above X-rays interpreted by me (1pt min.). @ -None CT interpreted by me (1pt min.). @ -CT of the chest was interpreted by myself shows a mass in the right base. U/S interpreted by me (1pt. min.). @ -Ultrasound of the gallbladder showed no acute abnormality What testing was considered but not performed or refused? (CT, X-rays, U/S, labs)? Why? @ -None What meds were considered but not given or refused? Why? @ -None Did you discuss the management of the patient with other professionals (professionals i.e. , PA, IS SUPPORT ANALYST, lab, RT, psych nurse, social services designee, plant protection supervisor, teacher, correction officer city or county jail, caseworker)? Give summary @ -I spoke with Dr. Duran he agreed to admit the patient admitted the patient wrote admitting orders Was smoking cessation discussed for >3mins.? @ -No Was critical care preformed (if so, how long)? @ -No Were there social determinants of health that impacted care today? How? (Homelessness, low income, unemployed, alcoholism, drug addiction, transportation, low edu. Level, literacy, decrease access to med. care, long-term, rehab)? @ -No Was there de-escalation of care discussed even if they declined (Discuss DNR or withdrawal of care, Hospice)? DNR status @ -No What co-morbidities impacted this encounter? (DM, HTN, Smoking, COPD, CAD, Cancer, CVA, ARF, Chemo, Hep., AIDS, mental health diagnosis, sleep apnea, morbid obesity)? @ -None Was patient admitted / discharged? Hospital course, mention meds given and route, prescriptions, significant lab abnormalities, going to OR and other pe rtinent info. @ -Patient came in complaining of right upper quadrant abdominal pain WAS DONE SHOWED NO ABNORMALITY WITH THE GALLBLADDER. CAT SCAN WAS DONE AND SHOWED A MASS IN THE RIGHT BASE AREA PATIENT DENIED ANY COUGH PATIENT DENIES ANY FEVER PATIENT DENIES SHORTNESS OF BREATH OR CHEST PAIN. I SPOKE WITH DR. DURAN AGREED TO ADMIT THE PATIENT TO THE PATIENT I WROTE ADMITTING ORDERS Undiagnosed new problem with uncertain prognosis? @ -Lung mass Drug Therapy requiring intensive monitoring for toxicity (Heparin, Nitro, Insulin, Cardizem)? @ -No Were any procedures done? @ -No Diagnosis/symptom? @ -Lung mass Acute, or Chronic, or Acute on Chronic? @ -Acute Uncomplicated (without systemic symptoms) or Complicated (systemic symptoms)? @ -Complicated Side effects of treatment? @ -No Exacerbation, Progression, or Severe Exacerbation? @ -No Poses a threat to life or bodily function? How? (Chest pain, [place], [place], pneumonia, PE, COPD, DKA, ARF, appy, cholecystitis, CVA, Diverticulitis, Homicidal, Suicidal, threat to staff... and all critical care pts) @ -Yes is potentially could be malignant - Lab Data Result diagrams: 05/28/22 13:27 05/28/22 13:27 Lab Results 05/28/22 05/28/22 05/28/22 Range/Units 13:27 13:27 13:27 WBC 8.1 (3.8-10.6) k/uL RBC 4.38 (4.30-5.90) m/uL Hgb 13.4 (13.0-17.5) gm/dL Hct 40.1 (39.0-53.0) % MCV 91.5 (80.0-100.0) fL MCH 30.6 (25.0-35.0) pg MCHC 33.4 (31.0-37.0) g/dL RDW 13.2 (11.5-15.5) % Plt Count 215 (150-450) k/uL MPV 8.3 Neutrophils % 70 % Lymphocytes % 18 % Monocytes % 8 % Eosinophils % 1 % Basophils % 1 % Neutrophils # 5.6 (1.3-7.7) k/uL Lymphocytes # 1.5 (1.0-4.8) k/uL Monocytes # 0.6 (0-1.0) k/uL Eosinophils # 0.1 (0-0.7) k/uL Basophils # 0.0 (0-0.2) k/uL Sodium 138 (137-145) mmol/L Potassium 4.3 (3.5-5.1) mmol/L Chloride 100 (98-107) mmol/L Carbon Dioxide 29 (22-30) mmol/L Anion Gap 9 mmol/L BUN 11 (9-20) mg/dL Creatinine 0.55 L (0.66-1.25) mg/dL Est GFR (CKD-EPI)AfAm >90 (>60 ml/min/1.73 sqM) Est GFR (CKD-EPI)NonAf >90 (>60 ml/min/1.73 sqM) Glucose 103 H (74-99) mg/dL Plasma Lactic Acid Florentino 0.7 (0.7-2.0) mmol/L Calcium 8.8 (8.4-10.2) mg/dL Total Bilirubin 1.0 (0.2-1.3) mg/dL AST 18 (17-59) U/L ALT 12 (4-49) U/L Alkaline Phosphatase 74 (38-126) U/L Troponin I (0.000-0.034) ng/mL Total Protein 6.8 (6.3-8.2) g/dL Albumin 3.7 (3.5-5.0) g/dL Amylase 61 (30-110) U/L Lipase 82 (23-300) U/L 05/28/22 Range/Units 13:30 WBC (3.8-10.6) k/uL RBC (4.30-5.90) m/uL Hgb (13.0-17.5) gm/dL Hct (39.0-53.0) % MCV (80.0-100.0) fL MCH (25.0-35.0) pg MCHC (31.0-37.0) g/dL RDW (11.5-15.5) % Plt Count (150-450) k/uL MPV Neutrophils % % Lymphocytes % % Monocytes % % Eosinophils % % Basophils % % Neutrophils # (1.3-7.7) k/uL Lymphocytes # (1.0-4.8) k/uL Monocytes # (0-1.0) k/uL Eosinophils # (0-0.7) k/uL Basophils # (0-0.2) k/uL Sodium (137-145) mmol/L Potassium (3.5-5.1) mmol/L Chloride (98-107) mmol/L Carbon Dioxide (22-30) mmol/L Anion Gap mmol/L BUN (9-20) mg/dL Creatinine (0.66-1.25) mg/dL Est GFR (CKD-EPI)AfAm (>60 ml/min/1.73 sqM) Est GFR (CKD-EPI)NonAf (>60 ml/min/1.73 sqM) Glucose (74-99) mg/dL Plasma Lactic Acid Florentino (0.7-2.0) mmol/L Calcium (8.4-10.2) mg/dL Total Bilirubin (0.2-1.3) mg/dL AST (17-59) U/L ALT (4-49) U/L Alkaline Phosphatase (38-126) U/L Troponin I <0.012 (0.000-0.034) ng/mL Total Protein (6.3-8.2) g/dL Albumin (3.5-5.0) g/dL Amylase (30-110) U/L Lipase (23-300) U/L Disposition Clinical Impression: Lung mass Disposition: ADMITTED IP TO THIS [facility] Referrals: Edmund Santos MD [Medical Doctor] - 1-2 days Time of Disposition: 15:34
[2022-05-28 13:37] LABS: Basophils % (A) 1 %; Eosinophils # (A) 0.1 k/uL (0-0.7); Eosinophils % (A) 1 %; HCT 40.1 % (39.0-53.0); HGB 13.4 gm/dL (13.0-17.5); Lymphocytes # (A) 1.5 k/uL (1.0-4.8); Lymphocytes % (A) 18 %; MCH 30.6 pg (25.0-35.0); MCHC 33.4 g/dL (31.0-37.0); MCV 91.5 fL (80.0-100.0); Mean Platelet Volume 8.3; Monocytes # (A) 0.6 k/uL (0-1.0); Monocytes % (A) 8 %; Neutrophils # (A) 5.6 k/uL (1.3-7.7); Neutrophils % (A) 70 %; Platelet Count 215 k/uL (150-450); RBC 4.38 m/uL (4.30-5.90); RDW 13.2 % (11.5-15.5); WBC 8.1 k/uL (3.8-10.6)
[2022-05-28 13:49] LABS: ALT 12 U/L (4-49); AST 18 U/L (17-59); African American GFR (CKD) >90 (>60 ml/min/1.73 sqM); Albumin 3.7 g/dL (3.5-5.0); Alkaline Phosphatase 74 U/L (38-126); Amylase 61 U/L (30-110); Anion Gap 9 mmol/L; Blood Urea Nitrogen 11 mg/dL (9-20); Calcium 8.8 mg/dL (8.4-10.2); Carbon Dioxide 29 mmol/L (22-30); Chloride 100 mmol/L (98-107); Glucose 103 mg/dL (74-99); Lipase 82 U/L (23-300); Non-African American GFR(CKD) >90 (>60 ml/min/1.73 sqM); Potassium 4.3 mmol/L (3.5-5.1); Sodium 138 mmol/L (137-145); Total Protein 6.8 g/dL (6.3-8.2)
--- NOTE | 2022-05-28 14:32 | US ---
EXAMINATION TYPE: US gallbladder DATE OF EXAM: 05/28/2022 COMPARISON: None CLINICAL HISTORY: Right upper quadrant abdominal pain. Pain, pt poor historian, altered mental status TECHNIQUE: Multiple sonographic images of the right upper quadrant are obtained. FINDINGS: EXAM MEASUREMENTS: Liver Length: 16.3 cm Gallbladder Wall: 0.2 cm CBD: 0.5 cm Right Kidney: 11.2 x 5.7 x 5.5 cm Pancreas: Obscured by bowel gas Liver: Visualized mostly intercostally, limited views appeared unremarkable Gallbladder: Probable stones near neck, wall not thickened, pt unable to roll LLD position Evidence for sonographic Hernandez's sign: No CBD: wnl Right Kidney: No evidence of hydro, indentation anterior aspect of renal cortex Similar findings when compared to prior ultrasound IMPRESSION: 1. Cholelithiasis without gallbladder wall thickening, distention or pericholecystic fluid. Negative sonographic Hernandez sign. 2. No biliary ductal dilatation. 3. Limited evaluation of the pancreas. 4. Unremarkable liver and right kidney.
--- NOTE | 2022-05-28 15:29 | CT ---
EXAMINATION TYPE: CT abdomen pelvis w con DATE OF EXAM: 05/28/2022 COMPARISON: None HISTORY: Severe abdominal pain and chest pain. CT DLP: 1725.1 mGycm Automated exposure control for dose reduction was used. TECHNIQUE: Helical acquisition of images was performed from the lung bases through the pelvis. CONTRAST: Performed without Oral Contrast and with IV Contrast, patient injected with 100cc mL of Isovue 300. FINDINGS: The visualized portion of the right lung base, there is a 3.4 x 3.0 cm masslike density which is not imaged in its entirety. Although it appears masslike, no corresponding mass was seen in the right den g base on this CTA of the chest performed on 04/12/2022 and therefore this is unlikely neoplasm even t rickey it has a masslike appearance. It most likely represents an acute pneumonia. CT of the chest is recommended for further evaluation. Evaluation of the abdomen is limited secondary to involuntary patient motion. The gallbladder appears grossly normal. There is no focal mass or organomegaly involving the liver, p ancreas, spleen or adrenal glands. The renal parenchyma enhances homogeneously and symmetrically is no solid renal mass or hydronephrosi s. The caliber the abdominal aorta is normal is no retroperitoneal adenopathy or hemorrhage. The bowel loops are normal in caliber is no dilatation or obstruction. No inflammatory changes are id entified in the mesentery and there is no free intraperitoneal air or fluid. There is no pelvic mass, free fluid, abscess or adenopathy. There is diverticulosis of the descending and sigmoid colon without CT evidence of diverticulitis. There is a right hip prosthesis otherwise the osseous structures are intact. IMPRESSION: 1. 3.4 cm masslike opacity/density in the right lung base. Most likely represents inflammatory proces s given the lack of a abnormal mass in the right lung base CTA of the chest performed on 04/12. CT of the chest is recommended to further evaluate. 2. No acute changes within the abdomen.
[2022-05-28] MEDS ORDERED: SODIUM CHLORIDE 0.9% 1,000 ML IV ONE (15:34)
[2022-05-28] MEDS ORDERED: PNEUMONIA PROTOCOL UTILIZED 1 EACH MISC PO PRN (16:10)
[2022-05-28] MEDS ORDERED: IPRATROPIUM-ALBUTEROL 3 ML NEB INHALATION PRN (16:10)
[2022-05-28] MEDS ORDERED: AZITHROMYCIN 500 MG in SODIUM CHLORIDE 0.9% 250 ML IVPB STA (16:10)
[2022-05-28] MEDS ORDERED: SODIUM CHLORIDE 0.9% 1,000 ML IV SCH (16:15)
--- NOTE | 2022-05-28 17:21 | P.CONS ---
History of Present Illness - Reason for Consult Consult date: 05/28/22 - History of Present Illness Patient is a 71-year-old male with history of recent DVT, dementia, CVA with right-sided deficits, hypertension, dyslipidemia presents to the ED for abdominal pain. Patient reports right upper quadrant abdominal pain that has been ongoing for an unspecified amount of time. He reports the pain to be intermittent which can occur at any time. He is unable to describe his pain effectively. Pain does radiate to the right flank occasionally. He currently reports no abdominal pain. He denies any aggravating or alleviating factors. He denies any headache, lower extremity edema, nausea or vomiting, fever or chills, cough, chest pain, shortness of breath, palpitations, changes in urination or bowel habits. No changes in appetite or weight. He denies any dizziness, numbness/weakness/tingling of the extremities. In the ED, his vital signs were stable. CBC was unremarkable. CMP showed creatinine is 0.55 and glucose 103. Lactic acid was negative. Troponin was less than 0.012. Amylase and lipase negative. EKG showed sinus rhythm with frequent PVCs. Gallbladder ultrasound showed cholelithiasis without biliary ductal dilatation or gallbladder wall thickening. CT abdomen and pelvis showed 3.4 cm masslike opacity in the right lung base, likely representing inflammatory process given the lack of an abnormal mass from a CT chest that was performed on 04/12/22 with no acute changes within the abdomen. Pertinent positives and negatives as discussed in HPI, a complete review of systems was performed and all other systems are negative. General: nontoxic, no distress, appears at stated age Derm: warm, dry Head: atraumatic, normocephalic, symmetric Eyes: EOMI, no lid lag, anicteric sclera ENT: Nose and ears atraumatic Neck: No thyromegaly, supple Mouth: no lip lesion, mucus membranes moist Cardiovascular: S1S2 reg, no murmur, no edema Lungs: clear to auscultation bilateral, no rhonchi, no rales, no wheeze, no accessory muscle use Abdominal: soft, nontender to palpation, no guarding, no appreciable organomegaly Ext: Reduced strength in right upper extremity and right lower extremity. Neuro: CN II-XII grossly intact Psych: Alert, oriented 2, appropriate affect Cholelithiasis Right-sided lung opacity Chronic conditions: recent DVT, dementia, CVA with right-sided deficits, hypertension, dyslipidemia Patient presents with right-sided abdominal pain that is consistent with gallbladder ultrasound finding of cholelithiasis. There is no biliary ductal dilatation or gallbladder wall thickening. I have no concerns for cholecystitis. His liver enzymes are within normal limits. His amylase and lipase is also within normal limits. He will need to follow-up with general surgery in the outpatient setting for possible elective cholecystectomy. Incidental finding of 3.4 cm masslike opacity in the right lung base. This is unlikely malignancy given the lack of abnormal mass seen on CT chest was performed on 04/12/22. Patient does not have a leukocytosis, he is hemodynamically stable and has not required any supplemental oxygen. We will empirically treat the patient with azithromycin 500 mg by mouth for 3 days. He would benefit from a repeat chest x-ray in 1-2 weeks to ensure resolution of this masslike opacity in the right lung base. Patient is pain-free at this time and can be discharged back to [facility]. Patient has verbalized understanding of the plan. The case was discussed with his PCP Dr. Kwong. 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 pt has difficulties with memory impairment and expressive aphasia as well. History of Any Multi-Drug Resistant Organisms: None Reported Past Surgical History: No Surgical Hx Reported Additional Past Surgical History / Comment(s): right forearm hematoma evacuation Past Anesthesia/Blood Transfusion Reactions: No Reported Reaction Past Psychological History: No Psychological Hx Reported Smoking Status: Former smoker Past Alcohol Use History: None Reported, Rare Past Drug Use History: None Reported - Past Family History Father History Unknown: Yes Medications and Allergies Home Medications Medication Instructions Recorded Confirmed Type Donepezil [Aricept] 10 mg PO HS@2100 12/10/17 05/28/22 History Folic Acid 1 mg PO DAILY@169912/10/17 05/28/22 History Memantine [Namenda] 5 mg PO BID@0800,1700 12/10/17 05/28/22 History Aspirin EC [Ecotrin Low Dose] 81 mg PO DAILY@1700 11/08/20 05/28/22 History Rosuvastatin Calcium [Crestor] 20 mg PO HS@2100 11/08/20 05/28/22 History amLODIPine [Norvasc] 5 mg PO DAILY@0800 11/08/20 05/28/22 History Furosemide [Lasix] 20 mg PO BID@0800,1700 02/21/22 05/28/22 History HYDROcodone/APAP 7.5-325MG [[employer] 1 tab PO Q6HR #10 tab 04/22/22 05/28/22 Rx 7.5-325] Apixaban [Eliquis] 5 mg PO BID@0800,1700 05/28/22 05/28/22 History Azithromycin [Zithromax] 500 mg PO DAILY #3 tab 05/28/22 Rx Magnesium Hydroxide [Milk of 7,200 mg PO DAILY PRN 05/28/22 05/28/22 History Magnesia Concentrate] Na Phos,M-B/Na Phos,Di-Ba [Fleet 133 ml RECTAL DAILY PRN 05/28/22 05/28/22 History Adult] bisacodyL [Dulcolax] 10 mg RECTAL DAILY PRN 05/28/22 05/28/22 History Allergies Allergy/AdvReac Type Severity Reaction Status Date / Time No Known Allergies Allergy Verified 05/28/22 16:39 Physical Exam Vitals: Vital Signs Temp Pulse Resp BP Pulse Ox 05/28/22 15:35 78 17 130/79 94 L 05/28/22 13:04 97.8 F 90 20 121/75 94 L Intake and Output 05/28/22 05/28/22 05/28/22 06:59 14:59 22:59 Other: Weight 90.718 kg Results CBC & Chem 7: 05/28/22 13:27 05/28/22 13:27 Labs: Abnormal Lab Results - Last 24 Hours (Table) 05/28/22 Range/Units 13:27 Creatinine 0.55 L (0.66-1.25) mg/dL Glucose 103 H (74-99) mg/dL
[2022-05-28 18:20] VITALS: BP 113/64; PULSE 85; RESP 20; TEMP 99
[2022-05-29] MEDS ORDERED: AZITHROMYCIN 500 MG TAB PO SCH (09:00)
== END 2022-05-28 18:30 ==
LOC: EC 13:00 → 5NMEDONC 15:35 → UNDOADMIN 15:35 → UNDODISIN 18:30 → 5NMEDONC 18:30 → EC 18:30
DX: C34.91 Malignant neoplasm of unspecified part of right bronchus or lung (principal); K80.20 Calculus of gallbladder without cholecystitis without obstruction; E78.5 Hyperlipidemia, unspecified; I10 Essential (primary) hypertension; Z87.891 Personal history of nicotine dependence; Z79.899 Other long term (current) drug therapy; Z79.82 Long term (current) use of aspirin; Z86.73 Personal history of transient ischemic attack (TIA), and cerebral infarction without residual deficits
CPT/HCPCS: 99285 ×2; 36415; 93005; 80053; 82150; 83605; 83690; 84484; 85025; 76705; 74177; Q9967

== ENCOUNTER 2022-06-08 07:30 | Emergency (ER) | payer OTHER ==
[2022-06-08 07:40] VITALS: TEMP 97.9
[2022-06-08 08:00] LABS: Basophils % (A) 0 %; Eosinophils # (A) 0.2 k/uL (0-0.7); Eosinophils % (A) 3 %; HCT 39.1 % (39.0-53.0); HGB 12.8 gm/dL (13.0-17.5); Lymphocytes # (A) 1.5 k/uL (1.0-4.8); Lymphocytes % (A) 25 %; MCH 29.2 pg (25.0-35.0); MCHC 32.7 g/dL (31.0-37.0); MCV 89.4 fL (80.0-100.0); Mean Platelet Volume 7.3; Monocytes # (A) 0.3 k/uL (0-1.0); Monocytes % (A) 5 %; Neutrophils # (A) 3.9 k/uL (1.3-7.7); Neutrophils % (A) 64 %; Platelet Count 284 k/uL (150-450); RBC 4.38 m/uL (4.30-5.90); RDW 12.8 % (11.5-15.5)
--- NOTE | 2022-06-08 08:09 | ED ---
Chest Pain HPI - General Chief Complaint: Chest Pain Stated Complaint: chest pain Time Seen by Provider: 06/08/22 07:40 Source: patient, EMS Mode of arrival: EMS Limitations: no limitations - History of Present Illness Initial Comments: 71-year-old male presents to the emergency department from extended care facility. He does have a history of CVA with right-sided deficits. It is reported the patient is sent in for chest pain. When I speak to the patient he is admitting to right upper quadrant abdominal pain. Was seen in the emergency room for similar complaint of couple of days ago. He was found of gallstones. Patient states his pain is 7 out of 10. Denies shortness of breath. Admits to nausea without vomiting. States his pain started a couple of hours ago. Denies history of coronary disease. No ripping or tearing sensation to his back. No other alleviating, precipitating or modifying factors - Related Data Home Medications Medication Instructions Recorded Confirmed Donepezil [Aricept] 10 mg PO HS@2100 12/10/17 05/28/22 Folic Acid 1 mg PO DAILY@1700 12/10/17 05/28/22 Memantine [Namenda] 5 mg PO BID@0800,1700 12/10/17 05/28/22 Aspirin EC [Ecotrin Low Dose] 81 mg PO DAILY@1700 11/08/20 05/28/22 Rosuvastatin Calcium [Crestor] 20 mg PO HS@2100 11/08/20 05/28/22 amLODIPine [Norvasc] 5 mg PO DAILY@0800 11/08/20 05/28/22 Furosemide [Lasix] 20 mg PO BID@0800,1700 02/21/22 05/28/22 Apixaban [Eliquis] 5 mg PO BID@0800,1700 05/28/22 05/28/22 Magnesium Hydroxide [Milk of 7,200 mg PO DAILY PRN 05/28/22 05/28/22 Magnesia Concentrate] Na Phos,M-B/Na Phos,Di-Ba [Fleet 133 ml RECTAL DAILY PRN 05/28/22 05/28/22 Adult] bisacodyL [Dulcolax] 10 mg RECTAL DAILY PRN 05/28/22 05/28/22 Previous Rx's Medication Instructions Recorded HYDROcodone/APAP 7.5-325MG [[place] 1 tab PO Q6HR #10 tab 04/22/22 7.5-325] Azithromycin [Zithromax] 500 mg PO DAILY #3 tab 05/28/22 Allergies Allergy/AdvReac Type Severity Reaction Status Date / Time No Known Allergies Allergy Verified 06/08/22 07:38 Review of Systems ROS Statement: Those systems with pertinent positive or pertinent negative responses have been documented in the HPI. ROS Other: All systems not noted in ROS Statement are negative. EKG Findings - EKG Comments: EKG Findings:: EKG demonstrates sinus rhythm with a rate of 61. SD interval 207. QRS 115. QTC of 418. No acute ST segment elevations or depressions Past Medical History Past Medical History: CVA/TIA, Hyperlipidemia, Hypertension, Memory Impairment, Prostate Disorder Additional Past Medical History / Comment(s): CVA -pt unsure of year - residual right sided deficits with right foot droop. pt has difficulties with memory impairment and expressive aphasia as well. History of Any Multi-Drug Resistant Organisms: None Reported Past Surgical History: No Surgical Hx Reported Additional Past Surgical History / Comment(s): right forearm hematoma evacuation Past Anesthesia/Blood Transfusion Reactions: No Reported Reaction Past Psychological History: No Psychological Hx Reported Smoking Status: Former smoker Past Alcohol Use History: None Reported, Rare Past Drug Use History: None Reported - Past Family History Father History Unknown: Yes General Exam Limitations: physical limitation General appearance: alert, in no apparent distress Head exam: Present: atraumatic, normocephalic, normal inspection Eye exam: Present: normal appearance, PERRL, EOMI. Absent: scleral icterus, conjunctival injection, periorbital swelling ENT exam: Present: normal exam, mucous membranes moist Neck exam: Present: normal inspection. Absent: tenderness, meningismus, lymphadenopathy Respiratory exam: Present: normal lung sounds bilaterally. Absent: respiratory distress, wheezes, rales, rhonchi, stridor Cardiovascular Exam: Present: regular rate, normal rhythm, normal heart sounds. Absent: systolic murmur, diastolic murmur, rubs, gallop, clicks GI/Abdominal exam: Present: soft, tenderness (epigastric), normal bowel sounds. Absent: distended, guarding, rebound, rigid Extremities exam: Present: normal inspection, full ROM, normal capillary refill. Absent: tenderness, pedal edema, joint swelling, calf tenderness Back exam: Present: normal inspection Neurological exam: Present: alert, oriented X3, CN II-XII intact Psychiatric exam: Present: normal affect, normal mood Skin exam: Present: warm, dry, intact, normal color. Absent: rash Course Vital Signs 06/08/22 06/08/22 06/08/22 07:38 09:00 10:58 Temperature 97.9 F Pulse Rate 61 60 60 Respiratory 22 18 18 Rate Blood Pressure 130/73 124/71 128/80 O2 Sat by Pulse 99 97 98 Oximetry Chest Pain MDM - MDM Was pt. sent in by a medical professional or institution (, EMMA, WIRE PREPARATION WORKER, urgent care, hospital, or intermediate...) When possible be specific @ -ECF Did you speak to anyone other than the patient for history (EMS, parent, family, police, friend...)? What history was obtained from this source @ -EMS Did you review nursing and triage notes (agree or disagree)? Why? @ -I reviewed and agree with nursing and triage notes Were old charts reviewed (outside hosp., previous admission, EMS record, old EKG, old radiological studies, urgent care reports/EKG's, intermediate records)? Report findings @ - old charts were reviewed - patient recently admitted Differential Diagnosis (chest pain, altered mental status, abdominal pain women, abdominal pain men, vaginal bleeding, weakness, fever, dyspnea, syncope, headache, dizziness, GI bleed, back pain, seizure, CVA, palpatations, mental health, musculoskeletal)? @ -acs, pleurisy, chest wall pain, nstemi, pe, gallstones, pancreatitis EKG interpreted by me (3pts min.). @ -yes X-rays interpreted by me (1pt min.). @ -yes CT interpreted by me (1pt min.). @ -None done U/S interpreted by me (1pt. min.). @ -None done What testing was considered but not performed or refused? (CT, X-rays, U/S, labs)? Why? @ -None What meds were considered but not given or refused? Why? @ -None Did you discuss the management of the patient with other professionals (professionals i.e. EMMA Beck, WIRE PREPARATION WORKER, lab, RT, psych nurse, psychologist social, machine stacker, teacher, environmental technical officer, family preservation caseworker)? Give summary @ -No Was smoking cessation discussed for >3mins.? @ -No Was critical care preformed (if so, how long)? @ -No Were there social determinants of health that impacted care today? How? (Homelessness, low income, unemployed, alcoholism, drug addiction, transportation, low edu. Level, literacy, decrease access to med. care, intermediate, rehab)? @ -No Was there de-escalation of care discussed even if they declined (Discuss DNR or withdrawal of care, Hospice)? DNR status @ -No What co-morbidities impacted this encounter? (DM, HTN, Smoking, COPD, CAD, Cancer, CVA, ARF, Chemo, Hep., AIDS, mental health diagnosis, sleep apnea, morbid obesity)? @ -previous cva with speech deficits, cholelithiasis Was patient admitted / discharged? Hospital course, mention meds given and route, prescriptions, significant lab abnormalities, going to OR and other pertinent info. @ -Upon arrival patient is placed into room 24. Thorough history and physical exam was performed. IV access is established and laboratory studies were conducted. 12-lead EKG is obtained. When patient's inform see where his pain is he reports to the right upper gastric region. He is given a dose of pain medications. Laboratory studies are conducted and reviewed. Troponin undetectable. Liver enzymes within normal limits. Chest x-ray unremarkable. Patient reevaluated and has improvement in his pain. It is our demonstrated the patient has gallstones. He was admitted however discharged home to follow up with surgery. Patient will be discharged at this time and needs to follow-up with the surgeon for his cholelithiasis. Return for any new or worsening symptoms. Patient discharged to rehab in stable condition Undiagnosed new problem with uncertain prognosis? @ -yes Drug Therapy requiring intensive monitoring for toxicity (Heparin, Nitro, In sulin, Cardizem)? @ -No Were any procedures done? @ -No Diagnosis/symptom? @ -acute epigastric pain, acute cholelithaisis Acute, or Chronic, or Acute on Chronic? @ -acute Uncomplicated (without systemic symptoms) or Complicated (systemic symptoms)? @ -complicated Side effects of treatment? @ -No Exacerbation, Progression, or Severe Exacerbation? @ -No Poses a threat to life or bodily function? How? (Chest pain, [place], [place], pneumonia, PE, COPD, DKA, ARF, appy, cholecystitis, CVA, Diverticulitis, Homicidal, Suicidal, threat to staff... and all critical care pts) @ -yes Disposition Clinical Impression: Right upper quadrant pain, Gallstones Disposition: HOME SELF-CARE Condition: Stable Instructions (If sedation given, give patient instructions): Gallstones (ED) Additional Instructions: You have been diagnosed with gallstones. No suspicion of cardiac disease. Please follow-up with the surgeon for further management of your gallstones. Is patient prescribed a controlled substance at d/c from ED?: No Referrals: Edmund Santos MD [Primary Care Provider] - 1-2 days Torin Eddy MD [Medical Doctor] - 1-2 days Time of Disposition: 08:59
[2022-06-08 08:15] LABS: INR 1.1 (<1.2); Partial Thromboplastin Time 26.3 sec (22.0-30.0); Prothrombin Time 11.1 sec (9.0-12.0)
[2022-06-08 08:17] LABS: ALT 14 U/L (4-49); AST 18 U/L (17-59); African American GFR (CKD) >90 (>60 ml/min/1.73 sqM); Albumin 3.6 g/dL (3.5-5.0); Alkaline Phosphatase 69 U/L (38-126); Anion Gap 7 mmol/L; Blood Urea Nitrogen 11 mg/dL (9-20); Calcium 8.8 mg/dL (8.4-10.2); Carbon Dioxide 27 mmol/L (22-30); Chloride 104 mmol/L (98-107); Glucose 89 mg/dL (74-99); Lipase 165 U/L (23-300); Non-African American GFR(CKD) >90 (>60 ml/min/1.73 sqM); Potassium 3.9 mmol/L (3.5-5.1); Sodium 138 mmol/L (137-145); Total Bilirubin 0.6 mg/dL (0.2-1.3); Total Protein 6.5 g/dL (6.3-8.2)
--- NOTE | 2022-06-08 08:30 | XR ---
EXAMINATION TYPE: XR chest 2V DATE OF EXAM: 06/08/2022 8:24 AM COMPARISON: Chest radiographs from 04/12/2022 TECHNIQUE: XR chest 2V Frontal and lateral views of the chest. CLINICAL INDICATION:Male, 71 years old with history of Chest Pain; FINDINGS: Lungs/Pleura: There is no evidence of pleural effusion, focal consolidation, or pneumothorax. Pulmonary vascularity: Unremarkable. Heart/mediastinum: Cardiomediastinal silhouette is unremarkable. Musculoskeletal: No acute osseous pathology. IMPRESSION: No acute cardiopulmonary disease/process. No significant change from prior.
[2022-06-08] MEDS ORDERED: MORPHINE SULFATE 2 MG/ML SYRINGE IVP STA (08:54)
[2022-06-08 09:04] VITALS: PULSE 60; RESP 18
[2022-06-08 10:59] VITALS: BP 128/80
== END 2022-06-08 10:59 | disposition home or self-care (01) ==
LOC: EC 07:30 → SUPCPDRO 07:30 → EC 10:59
DX: K80.20 Calculus of gallbladder without cholecystitis without obstruction (principal); E78.5 Hyperlipidemia, unspecified; I10 Essential (primary) hypertension; Z87.891 Personal history of nicotine dependence; Z86.73 Personal history of transient ischemic attack (TIA), and cerebral infarction without residual deficits; Z79.82 Long term (current) use of aspirin; Z79.899 Other long term (current) drug therapy; Z79.01 Long term (current) use of anticoagulants
CPT/HCPCS: 36415; 93005; 83880; 80053; 83690; 83735; 84484; 85025; 85610; 85730; 71046; 99285; 96374; J2270

== ENCOUNTER → 2022-08-04 | Outpatient (CLI) | payer OTHER ==
--- NOTE | 2022-08-04 12:44 | CT ---
EXAMINATION TYPE: CT chest wo con CT DLP: 394.90 mGycm, Automated exposure control for dose reduction was used. DATE OF EXAM: 08/04/2022 12:28 PM COMPARISON: Chest radiograph 06/08/2022, CTA chest 04/12/2022 CLINICAL INDICATION:Male, 71 years old with history of R93.5 ABN FINDINGS ON DX IMAGING OF ABD REGION S, I; PHH, Abnormal findings on lung field TECHNIQUE: Multiple axial images were obtained through the chest without IV contrast. Lack of IV or o ral contrast limits evaluation of solid and hollow organ viscera. . Coronal and sagittal reformats re viewed. FINDINGS: LUNGS/ PLEURA: No pleural effusion, pneumothorax, focal consolidation. Bilateral lower lobe linear at electasis. No suspicious pulmonary nodule or mass. AIRWAY: Patent and unremarkable.. HEART: Mildly prominent size. Trace pericardial effusion. MEDIASTINUM: No gross evidence of adenopathy. VASCULATURE: No aortic aneurysm. MUSCULOSKELETAL: No acute osseous abnormalities. Redemonstration of anterior wedge compression deform ity of the T8 vertebral body with approximately 50% height loss and no retropulsion. SOFT TISSUES/LYMPH NODES: Unremarkable. LOWER NECK: No significant findings. UPPER ABDOMEN: Cholelithiasis. 1.1 cm right renal cyst. IMPRESSION: 1. No acute thoracic process. Bibasilar linear atelectasis. 2. Trace pericardial effusion. 3. Cholelithiasis. 4. No significant change in T8 anterior wedge compression deformity.
== END | disposition home or self-care (01) ==
LOC: RADCTMAIN 11:45
PROVIDERS: ATTEND Emergency Medicine
DX: I31.39 Other pericardial effusion (noninflammatory) (principal); K80.20 Calculus of gallbladder without cholecystitis without obstruction; R93.5 Abnormal findings on diagnostic imaging of other abdominal regions, including retroperitoneum
CPT/HCPCS: 71250

== ENCOUNTER 2022-08-08 11:25 | Day surgery (SDC) | payer OTHER ==
[2022-08-04 14:11] VITALS: BMI 27.8
--- NOTE | 2022-08-08 10:19 | P.GSHP ---
History of Present Illness H&P Date: 08/08/22 Chief Complaint: Chronic cholecystitis 71-year-old male here today for elective cholecystectomy. Was seen in the office in early June. Patient has had several episodes of right upper quadrant pain. He has had 2 hospital visits as a result of this. Ultrasound shows gallstones. Patient had a CAT scan showing a possible lung lesion however repeat CAT scan shows resolution apparently shows resolution. CAT scan also showing gallstones. 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 pt has difficulties with memory impairment and expressive aphasia as well. Edema R upper extremity. hx of DVT. History of Any Multi-Drug Resistant Organisms: None Reported Past Surgical History: No Surgical Hx Reported Additional Past Surgical History / Comment(s): right forearm hematoma evacuation Past Anesthesia/Blood Transfusion Reactions: No Reported Reaction Smoking Status: Former smoker - Past Family History Father History Unknown: Yes Medications and Allergies Home Medications Medication Instructions Recorded Confirmed Type Donepezil [Aricept] 10 mg PO HS@2100 12/10/17 08/04/22 History Folic Acid 1 mg PO DAILY@1700 12/10/17 08/04/22 History Memantine [Namenda] 5 mg PO HS 12/10/17 08/04/22 History Aspirin EC [Ecotrin Low Dose] 81 mg PO DAILY@1700 11/08/20 08/04/22 History Rosuvastatin Calcium [Crestor] 20 mg PO HS@2100 11/08/20 08/04/22 History amLODIPine [Norvasc] 5 mg PO DAILY@0800 11/08/20 08/04/22 History Furosemide [Lasix] 20 mg PO BID@0800,1700 02/21/22 08/04/22 History HYDROcodone/APAP 7.5-325MG [[place] 1 tab PO Q6HR #10 tab 04/22/22 08/04/22 Rx 7.5-325] Apixaban [Eliquis] 5 mg PO BID@0800,1700 05/28/22 08/04/22 History Magnesium Hydroxide [Milk of 7,200 mg PO DAILY PRN 05/28/22 08/04/22 History Magnesia Concentrate] Na Phos,M-B/Na Phos,Di-Ba [Fleet 133 ml RECTAL DAILY PRN 05/28/22 08/04/22 History Adult] bisacodyL [Dulcolax] 10 mg RECTAL DAILY PRN 05/28/22 08/04/22 History Acetaminophen Tab [Tylenol] 325 mg PO Q6H 08/04/22 08/04/22 History Famotidine [Pepcid] 20 mg PO DAILY 08/04/22 08/04/22 History Allergies Allergy/AdvReac Type Severity Reaction Status Date / Time No Known Allergies Allergy Verified 08/04/22 13:41 Surgical - Exam Physical exam: General: Well-developed, well-nourished HEENT: Normocephalic, sclerae nonicteric Abdomen: Nontender, nondistended Extremities: No edema Neuro: Alert and oriented Assessment and Plan (1) Chronic cholecystitis Narrative/Plan: Will proceed with laparoscopic, possible open cholecystectomy at this time. Risks of bleeding, infection, bile leak, bile duct injury, retained common bile duct stone, trocar injury, conversion to an open procedure, hernia, anesthesia related complications were reviewed. The patient understands and wishes to proceed. Status: Acute Code(s): K81.1 - CHRONIC CHOLECYSTITIS SNOMED Code(s): 76778515
[~2022-08-08 11:25] MED LIST: ACETAMINOPHEN TAB 500 MG TAB PO PRN; DEXAMETHASONE SOD PHOSPHATE 4 MG/ML 1 ML VIAL IV ONE; HEPARIN SODIUM,PORCINE/PF 5,000 UNIT/0.5 ML SYRINGE SQ PRN; HYDROmorphone 0.5 MG/0.5 ML SYRINGE IVP PRN; LACTATED RINGERS 1,000 ML IV SCH; ONDANSETRON 4 MG/2 ML VIAL IVP ONE
[2022-08-08] MEDS ORDERED: BUPIVACAINE (PF) 0.25% 30 ML VIAL SQ ONE ×2 (13:34→14:13)
[2022-08-08] MEDS ORDERED: KETOROLAC 15 MG/ML 1 ML VIAL ONE (13:49)
[2022-08-08] MEDS ORDERED: fentaNYL (PF) 50 MCG/ML 2 ML AMP ONE (13:49)
[2022-08-08] MEDS ORDERED: ROCURONIUM 10 MG/ML (5 ML VIAL) IV ONE (13:49)
[2022-08-08] MEDS ORDERED: LABETALOL 5 MG/ML VIAL MDV ONE (13:49)
[2022-08-08] MEDS ORDERED: NEOSTIGMINE 1 MG/ML 10 ML VIAL ONE (13:49)
[2022-08-08] MEDS ORDERED: MIDAZOLAM 2 MG/2 ML VIAL ONE (13:49)
[2022-08-08] MEDS ORDERED: GLYCOPYRROLATE 0.2 MG/ML 2 ML VIAL ONE (13:49)
[2022-08-08] MEDS ORDERED: LIDOCAINE 2% INJ 20 MG/ML (2 ML VIAL) ONE (13:49)
[2022-08-08] MEDS ORDERED: PROPOFOL 10 MG/ML 20 ML VIAL IV ONE (13:49)
[2022-08-08] MEDS ORDERED: traMADol 50 MG TAB PO STA (14:52)
--- NOTE | 2022-08-08 14:55 | P.OP ---
Date of Procedure: 08/08/22 Procedure(s) Performed: PREOPERATIVE DIAGNOSIS: Chronic cholecystitis POSTOPERATIVE DIAGNOSIS: Same PROCEDURE: Laparoscopic cholecystectomy SURGEON: Surjit EBL: Minimal see anesthesia record ANESTHESIA: Gen. COMPLICATIONS: None OPERATIVE PROCEDURE: The patient was brought and placed on the operating room table in the supine position. The patient was placed under general anesthesia at that time. The abdomen was prepped and draped in the usual sterile fashion. A small vertical infraumbilical incision was made. The fascia was grasped with the Barak forceps. The fascia was retracted anteriorly. The Veress needle was advanced into the peritoneal cavity. The saline drop test was normal. Insufflation took place up to 15 mmHg. A 5 mm optical trocar was advanced and the peritoneal cavity. 2 additional 5 mm trochars were placed in the right upper quadrant under direct visualization. A 12 mm trocar was advanced into the epigastric incision site. The gallbladder was retracted superiorly and laterally. The peritoneum overlying the infundibulum was bluntly dissected. The patient's cystic duct was visualized. The junction between the cystic duct common and hepatic duct was identified. The critical view of safety was achieved after blunt dissection. The cystic duct was then divided after placement of 3 12 mm clips on the patient's side and one on the specimen side. The cystic artery was identified and clipped as well. A small vessel was seen along the gallbladder fossa and clipped as well. The gallbladder was then removed from the liver bed using electrocautery. The gallbladder was then removed from the epigastric trocar site with an Endo Catch bag. The gallbladder fossa was irrigated with saline. There was no evidence of any bleeding or biliary drainage seen from the gallbladder fossa. During retraction of the gallbladder superiorly a small tear in the superficial aspect of the right lobe of the liver occurred just to the right of the falciform ligament. This was irrigated and no bleeding was seen. The fascia at the 12 millimeter site was closed using a [place] 0 Vicryl stitch. The trochars were then removed. The skin at all 4 sites was closed using a 4-0 Monocryl stitch. Skin glue was utilized on the incision sites. At the end of this procedure the sponge and needle counts were correct. DISPOSITION: Stable to the recovery room
[2022-08-08 14:58] VITALS: RESP 16; TEMP 97
[2022-08-08] MEDS ORDERED: IBUPROFEN 600 MG TAB PO SCH (15:00)
[2022-08-08] MEDS ORDERED: LACTATED RINGERS 1,000 ML IV ONE (15:47)
[2022-08-08 16:05] VITALS: BP 159/82; PULSE 82
[2022-08-08] MEDS ORDERED: ACETAMINOPHEN TAB 325 MG TAB PO SCH (18:00)
== END 2022-08-08 17:15 | disposition home or self-care (01) ==
LOC: OR 11:25
PROVIDERS: ATTEND Surgery
DX: K81.1 Chronic cholecystitis (principal); E78.5 Hyperlipidemia, unspecified; I10 Essential (primary) hypertension; Z86.73 Personal history of transient ischemic attack (TIA), and cerebral infarction without residual deficits; Z86.718 Personal history of other venous thrombosis and embolism; Z87.891 Personal history of nicotine dependence; Z79.82 Long term (current) use of aspirin; Z79.899 Other long term (current) drug therapy; Z79.01 Long term (current) use of anticoagulants
CPT/HCPCS: 47562; J2250; J1100; J2710; J0690; J2405; J3010; J1885; J2704; J1644; J2001; 88304

== ENCOUNTER 2023-01-30 23:51 | Emergency (ER) | payer OTHER ==
[2023-01-31] MEDS ORDERED: ONDANSETRON 4 MG/2 ML VIAL IVP STA
[2023-01-31] MEDS ORDERED: SODIUM CHLORIDE 0.9% 1,000 ML IV STA
[2023-01-31] MEDS ORDERED: PANTOPRAZOLE 40 MG/10 ML VIAL IVP STA
[2023-01-31] MEDS ORDERED: MAG HYDROX/AL HYDROX/SIMETH 30 ML, HYOSCYAMINE ELIXIR 10 ML PO STA ×2
--- NOTE | 2023-01-31 00:02 | ED ---
Abdominal Pain HPI - General Chief Complaint: Abdominal Pain Stated Complaint: Chest Pain Time Seen by Provider: 01/30/23 23:56 Source: EMS, RN notes reviewed, old records reviewed Mode of arrival: EMS Limitations: no limitations - History of Present Illness Initial Comments: This is a 72-year-old male is a mildly poor story coming in for both abdominal pain chest pain today. Patient is holding his chest and abdomen complaining of burning, feels like reflux or gas, acid type pain. Denying current chest pain or shortness of breath without any recent fevers. Symptoms began tonight and have been progressively worsening. Positive nausea positive vomiting no diarrhea no fevers MD Complaint: abdominal pain -: hour(s) Location: epigastric Radiation: epigastric Migration to: epigastric Severity: moderate Severity scale (1-10): 6 Quality: sharp, burning Consistency: constant Improves With: nothing Worsens With: nothing Associated Symptoms: denies other symptoms - Related Data Home Medications Medication Instructions Recorded Confirmed Donepezil [Aricept] 10 mg PO HS@2100 12/10/17 08/04/22 Folic Acid 1 mg PO DAILY@0 12/10/17 08/04/22 Memantine [Namenda] 5 mg PO HS 12/10/17 08/04/22 Aspirin EC [Ecotrin Low Dose] 81 mg PO DAILY@1700 11/08/20 08/04/22 Rosuvastatin Calcium [Crestor] 20 mg PO HS@2100 11/08/20 08/04/22 amLODIPine [Norvasc] 5 mg PO DAILY@0800 11/08/20 08/04/22 Furosemide [Lasix] 20 mg PO BID@0800,1700 02/21/22 08/04/22 Apixaban [Eliquis] 5 mg PO BID@0800,1700 05/28/22 08/04/22 Acetaminophen Tab [Tylenol] 325 mg PO Q6H 08/04/22 08/04/22 Famotidine [Pepcid] 20 mg PO DAILY 08/04/22 08/04/22 Previous Rx's Medication Instructions Recorded HYDROcodone/APAP 7.5-325MG [[place] 1 tab PO Q6HR #10 tab 04/22/22 7.5-325] traMADol HCl [Ultram] 50 mg PO Q6H PRN #10 tab 08/08/22 Allergies Allergy/AdvReac Type Severity Reaction Status Date / Time No Known Allergies Allergy Verified 01/30/23 23:57 Review of Systems ROS Statement: Those systems with pertinent positive or pertinent negative responses have been documented in the HPI. ROS Other: All systems not noted in ROS Statement are negative. 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 pt has difficulties with memory impairment and expressive aphasia as well. Edema R upper extremity. hx of DVT. History of Any Multi-Drug Resistant Organisms: None Reported Past Surgical History: No Surgical Hx Reported Additional Past Surgical History / Comment(s): right forearm hematoma evacuation Past Anesthesia/Blood Transfusion Reactions: No Reported Reaction Past Psychological History: No Psychological Hx Reported Smoking Status: Former smoker Past Alcohol Use History: None Reported Past Drug Use History: None Reported - Past Family History Father History Unknown: Yes General Exam General appearance: alert, in no apparent distress Head exam: Present: atraumatic, normocephalic, normal inspection Eye exam: Present: normal appearance, PERRL, EOMI. Absent: scleral icterus, conjunctival injection, periorbital swelling ENT exam: Present: normal exam, mucous membranes moist Neck exam: Present: normal inspection. Absent: tenderness, meningismus, lymphadenopathy Respiratory exam: Present: normal lung sounds bilaterally. Absent: respiratory distress, wheezes, rales, rhonchi, stridor Cardiovascular Exam: Present: regular rate, normal rhythm, normal heart sounds. Absent: systolic murmur, diastolic murmur, rubs, gallop, clicks GI/Abdominal exam: Present: soft, normal bowel sounds. Absent: distended, tenderness, guarding, rebound, rigid Extremities exam: Present: normal inspection, full ROM, normal capillary refill. Absent: tenderness, pedal edema, joint swelling, calf tenderness Back exam: Present: normal inspection Neurological exam: Present: alert, oriented X3, CN II-XII intact Psychiatric exam: Present: normal affect, normal mood Skin exam: Present: warm, dry, intact, normal color. Absent: rash Course Vital Signs 01/30/23 01/31/23 01/31/23 23:53 01:00 02:00 Temperature 98.3 F Pulse Rate 64 61 74 Respiratory 18 18 18 Rate Blood Pressure 142/80 136/62 120/70 O2 Sat by Pulse 98 98 98 Oximetry 01/31/23 03:29 Temperature 98.2 F Pulse Rate 76 Respiratory 18 Rate Blood Pressure 122/70 O2 Sat by Pulse 98 Oximetry - Reevaluation(s) Reevaluation #1: 01/31/23 00:19 Medical records reviewed Reevaluation #2: Patient symptoms are improved Reevaluation #3: Patient informed results questions answered Reevaluation #4: 01/31/23 00:20 Was pt. sent in by a medical professional or institution (, [facility], [employer], urgent care, hospital, or retirement...) When possible be specific @ -no Did you speak to anyone other than the patient for history (EMS, parent, family, police, friend...)? What history was obtained from this source @ -no Did you review nursing and triage notes (agree or disagree)? Why? @ -agree Are old charts reviewed (outside hosp., previous admission, EMS record, old EKG, old radiological studies, urgent care reports/EKG's, retirement records)? Report findings @ -yes Differential Diagnosis (chest pain, altered mental status, abdominal pain women, abdominal pain men, vaginal bleeding, weakness, fever, dyspnea, syncope, headache, dizziness, GI bleed, back pain, seizure, CVA, palpatations, mental health, musculoskeletal)? @ -prior EKG interpreted by me (3pts min.). @ -yes X-rays interpreted by me (1pt min.). @ -yes negative for acute disease CT interpreted by me (1pt min.). @ -no U/S interpreted by me (1pt. min.). @ -no What testing was considered but not performed or refused? (CT, X-rays, U/S, labs)? Why? @ -none What meds were considered but not given or refused? Why? @ -none Did you discuss the management of the patient with other professionals (professionals i.e. [facility], [employer], lab, RT, psych nurse, social work specialist, furnace liner, teacher, field health officer, child support case officer)? Give summary @ -no Was smoking cessation discussed for >3mins.? @ -no Was critical care preformed (if so, how long)? @ -no Were there social determinants of health that impacted care today? How? (Homelessness, low income, unemployed, alcoholism, drug addiction, transportation, low edu. Level, literacy, decrease access to med. care, [facility], rehab)? @ -none Was there de-escalation of care discussed even if they declined (Discuss DNR or withdrawal of care, Hospice)? DNR status @ -no What co-morbidities impacted this encounter? (DM, HTN, Smoking, COPD, CAD, Cancer, CVA, ARF, Chemo, Hep., AIDS, mental health diagnosis, sleep apnea, morbid obesity)? @ -none Was patient admitted / discharged? Hospital course, mention meds given and route, prescriptions, significant lab abnormalities, going to OR and other pertinent info. @ - 72 male to the emergency department for evaluation of abdominal pain which up her GI discomfort and gastritis. Pain is improved here in the ER feels improved and can be discharged home Discharge Undiagnosed new problem with uncertain prognosis? @ -no Drug Therapy requiring intensive monitoring for toxicity (Heparin, Nitro, Insulin, Cardizem)? @ -no Were any procedures done? @ -no Diagnosis/symptom? @ -Abdominal pain Acute, or Chronic, or Acute on Chronic? @ -Acute Uncomplicated (without systemic symptoms) or Complicated (systemic symptoms)? @ -Complicated Side effects of treatment? @ -no Exacerbation, Progression, or Severe Exacerbation? @ -exacerbation Poses a threat to life or bodily function? How? (Chest pain, [place], [place], pneumonia, PE, COPD, DKA, ARF, appy, cholecystitis, CVA, Diverticulitis, Homicidal, Suicidal, threat to staff... and all critical care pts) @ -no Reevaluation #5: 01/31/23 00:20 Differential Abdominal Pain Men: Appendicitis, cholecystitis, diverticulosis, ischemic bowel, pancreatitis, hepatitis, UTI, gastroenteritis, AAA, incarcerated hernia, bowel obstruction, constipation, inflammatory bowel, hepatitis, peptic ulcer disease, splenic infarction, perforated viscus, testicular torsion, this is not meant to be an all-inclusive list Differential Chest Pain: Stable Angina, Unstable Angina, STEMI, NSTEMI Aortic Dissection, Pneumothorax, Musculoskeletal, Esophageal Spasm GERD, Cholecystitis, Pancreatitis, Zoster, this is not meant to be an all-inclusive list. Medical Decision Making - Medical Decision Making 72 male to the emergency department for evaluation of abdominal pain which up her GI discomfort and gastritis. Pain is improved here in the ER feels improved and can be discharged home - Lab Data Result diagrams: 01/31/23 00:02 01/31/23 00:02 Lab Results 01/31/23 01/31/23 01/31/23 Range/Units 00:02 00:02 00:02 WBC 8.1 (3.8-10.6) k/uL RBC 4.89 (4.30-5.90) m/uL Hgb 14.9 (13.0-17.5) gm/dL Hct 44.7 (39.0-53.0) % MCV 91.4 (80.0-100.0) fL MCH 30.4 (25.0-35.0) pg MCHC 33.2 (31.0-37.0) g/dL RDW 13.3 (11.5-15.5) % Plt Count 194 (150-450) k/uL MPV 8.2 Neutrophils % 56 % Lymphocytes % 32 % Monocytes % 8 % Eosinophils % 2 % Basophils % 1 % Neutrophils # 4.5 (1.3-7.7) k/uL Lymphocytes # 2.6 (1.0-4.8) k/uL Monocytes # 0.6 (0-1.0) k/uL Eosinophils # 0.2 (0-0.7) k/uL Basophils # 0.1 (0-0.2) k/uL Sodium 137 (137-145) mmol/L Potassium 3.6 (3.5-5.1) mmol/L Chloride 103 (98-107) mmol/L Carbon Dioxide 23 (22-30) mmol/L Anion Gap 11 mmol/L BUN 15 (9-20) mg/dL Creatinine 0.68 (0.66-1.25) mg/dL Est GFR (CKD-EPI)AfAm >90 (>60 ml/min/1.73 sqM) Est GFR (CKD-EPI)NonAf >90 (>60 ml/min/1.73 sqM) Glucose 95 (74-99) mg/dL Calcium 9.2 (8.4-10.2) mg/dL Total Bilirubin 0.8 (0.2-1.3) mg/dL AST 26 (17-59) U/L ALT 20 (4-49) U/L Alkaline Phosphatase 70 (38-126) U/L Troponin I <0.012 (0.000-0.034) ng/mL Total Protein 7.1 (6.3-8.2) g/dL Albumin 4.0 (3.5-5.0) g/dL Amylase 106 (30-110) U/L Lipase 394 H (23-300) U/L - EKG Data -: EKG Interpreted by Me (EKG is sinus 67 NV 211 QRS 106 QTc 410) - Radiology Data Radiology results: report reviewed (X-ray of the chest and KUB x-ray negative for acute disease), image reviewed Disposition Clinical Impression: Abdominal pain Disposition: HOME SELF-CARE Condition: Fair Instructions (If sedation given, give patient instructions): Abdominal Pain (E D) Is patient prescribed a controlled substance at d/c from ED?: No Referrals: Jhonny Kwong MD [Primary Care Provider] - 1-2 days Time of Disposition: 01:50
[2023-01-31 00:25] LABS: Basophils # (A) 0.1 k/uL (0-0.2); Basophils % (A) 1 %; Eosinophils # (A) 0.2 k/uL (0-0.7); Eosinophils % (A) 2 %; HCT 44.7 % (39.0-53.0); HGB 14.9 gm/dL (13.0-17.5); Lymphocytes # (A) 2.6 k/uL (1.0-4.8); Lymphocytes % (A) 32 %; MCH 30.4 pg (25.0-35.0); MCHC 33.2 g/dL (31.0-37.0); MCV 91.4 fL (80.0-100.0); Mean Platelet Volume 8.2; Monocytes # (A) 0.6 k/uL (0-1.0); Monocytes % (A) 8 %; Neutrophils # (A) 4.5 k/uL (1.3-7.7); Neutrophils % (A) 56 %; Platelet Count 194 k/uL (150-450); RBC 4.89 m/uL (4.30-5.90); RDW 13.3 % (11.5-15.5); WBC 8.1 k/uL (3.8-10.6)
[2023-01-31 00:29] VITALS: RESP 18
[2023-01-31 00:53] LABS: ALT 20 U/L (4-49); AST 26 U/L (17-59); African American GFR (CKD) >90 (>60 ml/min/1.73 sqM); Alkaline Phosphatase 70 U/L (38-126); Amylase 106 U/L (30-110); Anion Gap 11 mmol/L; Blood Urea Nitrogen 15 mg/dL (9-20); Calcium 9.2 mg/dL (8.4-10.2); Carbon Dioxide 23 mmol/L (22-30); Chloride 103 mmol/L (98-107); Glucose 95 mg/dL (74-99); Lipase 394 U/L (23-300); Non-African American GFR(CKD) >90 (>60 ml/min/1.73 sqM); Potassium 3.6 mmol/L (3.5-5.1); Sodium 137 mmol/L (137-145); Total Bilirubin 0.8 mg/dL (0.2-1.3); Total Protein 7.1 g/dL (6.3-8.2)
--- NOTE | 2023-01-31 01:50 | XR ---
EXAM: XR Chest, 1 View CLINICAL HISTORY: XR Reason: abdominal pain TECHNIQUE: Frontal view of the chest. COMPARISON: CT scan from August 04, 2022 FINDINGS: Lungs: Lungs are underinflated with mild central bronchovascular crowding. No acute focal infiltrate or consolidation is seen. Pleural space: Unremarkable. No pneumothorax. Heart: The cardiac silhouette is mildly enlarged. Mediastinum: Unremarkable. Normal mediastinal contour. Bones/joints: Mild degenerative changes in the thoracic spine. No acute fracture. Upper abdomen: There is no pneumoperitoneum under the diaphragm. IMPRESSION: Lungs are underinflated with mild central bronchovascular crowding. No acute focal infiltrate or consolidation is seen.
--- NOTE | 2023-01-31 01:51 | XR ---
EXAM: XR Abdomen, 1 View CLINICAL HISTORY: XR Reason: abdominal pain TECHNIQUE: Frontal supine view of the abdomen/pelvis. COMPARISON: No relevant prior studies available. FINDINGS: Gastrointestinal tract: Bowel loops are nondilated. No abnormal gas collection is identified. Organs: Cholecystectomy clips in the right upper quadrant to the abdomen. Bones/joints: Previous right hip arthroplasty. Mild degenerative changes in the spine. No acute fracture. IMPRESSION: Bowel loops are nondilated. No abnormal gas collection is identified.
[2023-01-31 03:37] VITALS: BP 122/70; PULSE 76; TEMP 98.2
== END 2023-01-31 03:58 | disposition home or self-care (01) ==
LOC: EC 23:51
DX: R10.13 Epigastric pain (principal); E78.5 Hyperlipidemia, unspecified; I10 Essential (primary) hypertension; Z86.73 Personal history of transient ischemic attack (TIA), and cerebral infarction without residual deficits; Z86.718 Personal history of other venous thrombosis and embolism; Z87.891 Personal history of nicotine dependence; Z79.01 Long term (current) use of anticoagulants; Z79.82 Long term (current) use of aspirin; Z79.899 Other long term (current) drug therapy
CPT/HCPCS: 36415; 80053; 82150; 83690; 84484; 85025; 71045; 74018; 99285; 96374; 96375; 96361; J2405; C9113; 93005

== ENCOUNTER 2023-11-03 11:13 | Emergency (ER) | payer OTHER ==
[2023-11-03 11:33] VITALS: RESP 18
[2023-11-03] MEDS: DIPH,PERTUS(ACELL)TETVAC-LF 0.5 ML VIAL IM ONE (12:11)
[2023-11-03] MEDS: ACETAMINOPHEN TAB 325 MG TAB PO STA (12:12)
[2023-11-03] MEDS: LIDOCAINE 1% INJ 10MG/ML (20 ML MDV) SQ ONE (12:12)
--- NOTE | 2023-11-03 12:53 | CT ---
EXAMINATION TYPE: CT brain wo con, CT facial bones wo con CT DLP: 357.9 (accession [id number]), 1000 (accession [id number]) mGycm, Automated exposure control for d ose reduction was used. DATE OF EXAM: 11/03/2023 12:37 PM COMPARISON: 04/12/2022 CLINICAL INDICATION: Male, 73 years old with history of fall on thinners, FALL TECHNIQUE: Axial CT images of the brain and facial structures were obtained with coronal and sagittal reformats created and reviewed. Contrast used: None. Oral contrast used: None. FINDINGS: Brain: Extra-axial spaces: No abnormal extra-axial fluid collections. Ventricular system: Within normal limits Cerebral parenchyma: Remote left MCA territory injury with encephalomalacia. No acute intraparenchyma l hemorrhage or mass effect. The mc-white junction is well differentiated. Cerebellum: Unremarkable. Mass effect: No evidence of midline shift. Intracranial vasculature: unremarkable Soft tissues: Left cheek edema without evidence of fracture. Calvarium/osseous structures: No depressed skull fracture. Paranasal sinuses and mastoid air cells: Mild scattered paranasal sinus disease. Visualized orbits: Orbital contents are intact. IMPRESSION: 1. No acute intracranial process. 2. Left cheek edema without evidence of fracture.
--- NOTE | 2023-11-03 12:56 | XR ---
EXAMINATION TYPE: XR Hip RT and AP Pelvis DATE OF EXAM: 11/03/2023 12:44 PM CLINICAL INDICATION: Male, 73 years old with history of fall; COMPARISON: None. TECHNIQUE: XR Hip RT and AP Pelvis; hip was examined in the frontal and lateral projections and a AP pelvis. FINDINGS: Right hip arthroplasty which appears intact. Surgical clips project over the pelvis No evid ence for acute process, joint dislocation or significant soft tissue swelling. Osteophyte formation o f the superior acetabulum of the hip on the left. There is mild joint space narrowing. IMPRESSION: 1. No evidence for acute process. 2. Post surgical changes without evidence of fracture. 3. Mild left hip osteoarthrosis.
--- NOTE | 2023-11-03 12:58 | XR ---
EXAMINATION TYPE: XR shoulder complete RT DATE OF EXAM: 11/03/2023 12:44 PM CLINICAL INDICATION: Male, 73 years old with history of fall on thinners; [facility] COMPARISON: None TECHNIQUE: XR shoulder complete RT; examined in AP, internally rotated and scapular Y projections. FINDINGS: No evidence of acute osseous pathology, joint dislocation, or soft tissue swelling. The remaining po rtions of the visualized chest are unremarkable. Degeneration changes of the acromion, distal clavic le with osteophyte formation. There is osteophyte formation of the glenoid and humeral head. There is joint space narrowing of glenohumeral joint. IMPRESSION: 1. No acute osseous pathology. 2. Mild shoulder osteoarthrosis.
--- NOTE | 2023-11-03 13:54 | ED ---
Head Injury HPI - General Chief complaint: Head Injury Stated complaint: Fall on thinners-facial injury Time Seen by Provider: 11/03/23 13:53 Source: patient, RN notes reviewed Mode of arrival: ambulatory Limitations: no limitations - History of Present Illness Initial comments: 71-year-old male presented to the ER with a chief complaint of head injury. Patient states he woke out of bed last night hitting the right side of his head. Patient does take Eliquis and Plavix. 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 Patient is complaining of left shoulder and right hip pain. He denies any paresthesias. Denies loss of consciousness. Denies any nausea, vomiting, dizziness or lightheadedness. Patient denies any double blurry vision. Patient denies any abdominal pain, chest pain urinary complaints or peripheral edema. - Related Data Home Medications Medication Instructions Recorded Confirmed Donepezil [Aricept] 10 mg PO HS@2100 12/10/17 08/04/22 Folic Acid 1 mg PO DAILY@1700 12/10/17 08/04/22 Memantine [Namenda] 5 mg PO HS 12/10/17 08/04/22 Aspirin EC [Ecotrin Low Dose] 81 mg PO DAILY@1700 11/08/20 08/04/22 Rosuvastatin Calcium [Crestor] 20 mg PO HS@2100 11/08/20 08/04/22 amLODIPine [Norvasc] 5 mg PO DAILY@0800 11/08/20 08/04/22 Furosemide [Lasix] 20 mg PO BID@0800,1700 02/21/22 08/04/22 Apixaban [Eliquis] 5 mg PO BID@0800,1700 05/28/22 08/04/22 Acetaminophen Tab [Tylenol] 325 mg PO Q6H 08/04/22 08/04/22 Famotidine [Pepcid] 20 mg PO DAILY 08/04/22 08/04/22 Previous Rx's Medication Instructions Recorded HYDROcodone/APAP 7.5-325MG [[place] 1 tab PO Q6HR #10 tab 04/22/22 7.5-325] traMADol HCl [Ultram] 50 mg PO Q6H PRN #10 tab 08/08/22 Allergies/Adverse reactions: Allergies Allergy/AdvReac Type Severity Reaction Status Date / Time No Known Allergies Allergy Verified 11/03/23 11:33 Review of Systems ROS Statement: Those systems with pertinent positive or pertinent negative responses have been documented in the HPI. ROS Other: All systems not noted in ROS Statement are negative. 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 pt has difficulties with memory impairment and expressive aphasia as well. Edema R upper extremity. hx of DVT. History of Any Multi-Drug Resistant Organisms: None Reported Past Surgical History: No Surgical Hx Reported Additional Past Surgical History / Comment(s): right forearm hematoma evacuation Past Anesthesia/Blood Transfusion Reactions: No Reported Reaction Past Psychological History: No Psychological Hx Reported Smoking Status: Former smoker Past Alcohol Use History: None Reported Past Drug Use History: None Reported - Past Family History Father History Unknown: Yes General Exam Limitations: no limitations General appearance: alert, in no apparent distress Head exam: Present: atraumatic, normocephalic, normal inspection Eye exam: Present: normal appearance, PERRL, EOMI. Absent: scleral icterus, conjunctival injection, periorbital swelling Pupils: Present: normal accommodation, other (2 cm laceration to right eye brow minimal active bleeding) ENT exam: Present: normal exam, normal oropharynx, mucous membranes moist Neck exam: Present: normal inspection. Absent: tenderness, meningismus, lymphadenopathy Respiratory exam: Present: normal lung sounds bilaterally. Absent: respiratory distress, wheezes, rales, rhonchi, stridor Cardiovascular Exam: Present: regular rate, normal rhythm, normal heart sounds. Absent: systolic murmur, diastolic murmur, rubs, gallop, clicks GI/Abdominal exam: Present: soft, normal bowel sounds. Absent: distended, tenderness, guarding, rebound, rigid Extremities exam: Present: tenderness (Right AC joint. Right greater trochanter. 2+ bilateral radial pulses. 2+ PT and DP pulses.) Neurological exam: Present: alert, oriented X3, CN II-XII intact Skin exam: Present: warm, dry, intact, normal color. Absent: rash Course Vital Signs 11/03/23 11/03/23 11/03/23 11:28 13:30 15:36 Temperature 98 F 98.1 F 98 F Pulse Rate 98 93 91 Respiratory 18 18 18 Rate Blood Pressure 119/75 101/69 134/82 O2 Sat by Pulse 96 95 97 Oximetry Procedures - Laceration Laceration #1 Consent Obtained: verbal consent Indication: laceration Site: face Size (cm): 2 Description: linear Depth: simple, single layer Anesthetic Used: lidocaine 1%, without epi Anesthesia Technique: local infiltration Amount (mls): 2 Pre-repair: wound explored, irrigated extensively, deep structures intact Type of Sutures: nylon Size of Sutures: 5-0 Number of Sutures: 2 Technique: simple, interrupted Patient Tolerated Procedure: well Medical Decision Making - Medical Decision Making Was pt. sent in by a medical professional or institution (, PA, COMMUNICATIONS TOWER TECHNICIAN, urgent care, hospital, or penitentiary...) When possible be specific @ -No Did you speak to anyone other than the patient for history (EMS, parent, family, police, friend...)? What history was obtained from this source @ -8, bedside, aiding in HPI and past medical history. Did you review nursing and triage notes (agree or disagree)? Why? @ -I reviewed and agree with nursing and triage notes Were old charts reviewed (outside hosp., previous admission, EMS record, old EKG, old radiological studies, urgent care reports/EKG's, penitentiary records)? Report findings @ -No old charts were reviewed Differential Diagnosis (chest pain, altered mental status, abdominal pain women, abdominal pain men, vaginal bleeding, weakness, fever, dyspnea, syncope, headache, dizziness, GI bleed, back pain, seizure, CVA, palpatations, mental health, musculoskeletal)? @ -Fracture, dislocation, contusion, hematoma, intracranial hemorrhage, concussion, abrasion, laceration this list does not like to be all-inclusive EKG interpreted by me (3pts min.). @ -None X-rays interpreted by me (1pt min.). @ -[Right hip AP pelvis x-ray negative for acute osseous process. Right shoulder x-ray negative for acute osseous process. Right ankle x-ray negative for acute osseous process. CT interpreted by me (1pt min.). @ -CT brain and facial bones negative for acute intracranial process, fractures or dislocations. U/S interpreted by me (1pt. min.). @ -None done What testing was considered but not performed or refused? (CT, X-rays, U/S, labs)? Why? @ -None What meds were considered but not given or refused? Why? @ -None Did you discuss the management of the patient with other professionals (professionals i.e. , PA, COMMUNICATIONS TOWER TECHNICIAN, lab, RT, psych nurse, oncology social work, air plant engineer, teacher, collections officer, supervisor case loading)? Give summary @ -No Was smoking cessation discussed for >3mins.? @ -No Was critical care preformed (if so, how long)? @ -No Were there social determinants of health that impacted care today? How? (Homelessness, low income, unemployed, alcoholism, drug addiction, transportation, low edu. Level, literacy, decrease access to med. care, detention, rehab)? @ -No Was there de-escalation of care discussed even if they declined (Discuss DNR or withdrawal of care, Hospice)? DNR status @ -No What co-morbidities impacted this encounter? (DM, HTN, Smoking, COPD, CAD, Cancer, CVA, ARF, Chemo, Hep., AIDS, mental health diagnosis, sleep apnea, morbid obesity)? @ -History of CVA Was patient admitted / discharged? Hospital course, mention meds given and route, prescriptions, significant lab abnormalities, going to OR and other pertinent info. @ -Discharge. 73-year-old male presented to the ER with a chief complaint of a fall. History and physical exam completed. Vitals within normal limits. Patient no signs of acute distress and nontoxic-appearing. No acute neurologic findings on exam. Patient did have a 2 cm laceration to right eyebrow. Minimal active bleeding. Tetanus updated. Imaging completed in the ER negative for acute process. Laceration closed, see note above. Upon reevaluation, patient resting comfortably in no signs of acute distress. Patient eager for discharge. Results discussed with patient, all questions answered. Advise close follow-up with PCP. Suture care and strict return parameters discussed. Patient discharged stable condition. Patient verbally expressed understanding agree with care plan. Case discussed with ED attending, Dr. Prescott. Undiagnosed new problem with uncertain prognosis? @ -No Drug Therapy requiring intensive monitoring for toxicity (Heparin, Nitro, Insulin, Cardizem)? @ -No Were any procedures done? @ -Yes Diagnosis/symptom? @ -Fall/laceration Acute, or Chronic, or Acute on Chronic? @ -Acute Uncomplicated (without systemic symptoms) or Complicated (systemic symptoms)? @ -Uncomplicated Side effects of treatment? @ -No Exacerbation, Progression, or Severe Exacerbation? @ -No Poses a threat to life or bodily function? How? (Chest pain, [place], [place], pneumonia, PE, COPD, DKA, ARF, appy, cholecystitis, CVA, Diverticulitis, Homicidal, Suicidal, threat to staff... and all critical care pts) @ -No - Radiology Data Radiology results: report reviewed, image reviewed Disposition Clinical Impression: Fall, Laceration Disposition: HOME SELF-CARE Condition: Stable Instructions (If sedation given, give patient instructions): Care For Your Stitches (ED) Additional Instructions: Have sutures removed in 5 days. Follow-up PCP. Return to the ER for any new or worsening concerns. Is patient prescribed a controlled substance at d/c from ED?: No Referrals: Torin Lopez MD [Primary Care Provider] - 1-2 days Time of Disposition: 14:17
--- NOTE | 2023-11-03 15:17 | XR ---
EXAMINATION TYPE: XR ankle complete RT DATE OF EXAM: 11/03/2023 2:58 PM CLINICAL INDICATION: Male, 73 years old with history of fall; [facility] COMPARISON: None TECHNIQUE: XR ankle complete RT; ankle is imaged in frontal, lateral and oblique projections. FINDINGS: There is no evidence of acute osseous pathology. No evidence of subluxation or dislocation. Kager's fat pad is intact. Soft tissues are within normal limits. No radiopaque foreign bodies are identified . Atherosclerosis of the arterial vasculature. IMPRESSION: No evidence of acute fracture.
[2023-11-03 15:38] VITALS: BP 134/82; PULSE 91; TEMP 98
== END 2023-11-03 16:04 | disposition home or self-care (01) ==
LOC: EC 11:13
CPT/HCPCS: 12011; 70450; 70486; 73502; 90471; 90715; 99284

== ENCOUNTER 2024-08-05 06:10 | Emergency (ER) | payer OTHER ==
[2024-08-05 06:21] VITALS: BP 137/68; PULSE 82; RESP 16; TEMP 98
--- NOTE | 2024-08-05 06:30 | ED ---
Fall HPI - General Chief Complaint: Fall Stated Complaint: fall Time Seen by Provider: 08/05/24 06:11 Source: patient, EMS, RN notes reviewed Mode of arrival: EMS Limitations: altered mental status, physical limitation - History of Present Illness Initial Comments: 73-year-old male presents emergency department via EMS chief complaint of unwitnessed fall. Patient is at [facility] home and this was an unwitnessed fall patient is on blood thinners. Patient noted to have small superficial laceration right periorbital region up-to-date on tetanus patient's had prior CVA has right-sided deficits and baseline altered mental status. Patient denies any chest pain shortness of breath hip or leg or arm discomfort. Patient does have left-sided rib pain - Related Data Home Medications Medication Instructions Recorded Confirmed Donepezil [Aricept] 10 mg PO HS@2100 12/10/17 08/04/22 Folic Acid 1 mg PO DAILY@1700 12/10/17 08/04/22 Memantine [Namenda] 5 mg PO HS 12/10/17 08/04/22 Aspirin EC [Ecotrin Low Dose] 81 mg PO DAILY@1700 11/08/20 08/04/22 Rosuvastatin Calcium [Crestor] 20 mg PO HS@2100 11/08/20 08/04/22 amLODIPine [Norvasc] 5 mg PO DAILY@0800 11/08/20 08/04/22 Furosemide [Lasix] 20 mg PO BID@0800,1700 02/21/22 08/04/22 Apixaban [Eliquis] 5 mg PO BID@0800,1700 05/28/22 08/04/22 Acetaminophen Tab [Tylenol] 325 mg PO Q6H 08/04/22 08/04/22 Famotidine [Pepcid] 20 mg PO DAILY 08/04/22 08/04/22 Previous Rx's Medication Instructions Recorded HYDROcodone/APAP 7.5-325MG [[place] 1 tab PO Q6HR #10 tab 04/22/22 7.5-325] traMADol HCl [Ultram] 50 mg PO Q6H PRN #10 tab 08/08/22 Allergies Allergy/AdvReac Type Severity Reaction Status Date / Time No Known Allergies Allergy Verified 11/03/23 11:33 Review of Systems ROS Statement: Those systems with pertinent positive or pertinent negative responses have been documented in the HPI. ROS Other: All systems not noted in ROS Statement are negative. 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 pt has difficulties with memory impairment and expressive aphasia as well. Edema R upper extremity. hx of DVT. History of Any Multi-Drug Resistant Organisms: None Reported Past Surgical History: No Surgical Hx Reported Additional Past Surgical History / Comment(s): right forearm hematoma evacuation Past Anesthesia/Blood Transfusion Reactions: No Reported Reaction Past Psychological History: No Psychological Hx Reported Smoking Status: Former smoker Past Alcohol Use History: None Reported Past Drug Use History: None Reported - Past Family History Father History Unknown: Yes General Exam Limitations: altered mental status, physical limitation General appearance: alert, in no apparent distress Head exam: Present: atraumatic, normocephalic, normal inspection Eye exam: Present: PERRL, EOMI, periorbital swelling, periorbital tenderness (Abrasion right periorbital). Absent: normal appearance, scleral icterus, conjunctival injection ENT exam: Present: normal exam, mucous membranes moist Neck exam: Present: normal inspection. Absent: tenderness, meningismus, full ROM (Patient in c-collar), lymphadenopathy Respiratory exam: Present: normal lung sounds bilaterally, chest wall tenderness (Left-sided ribs). Absent: respiratory distress, wheezes, rales, rhonchi, stridor Cardiovascular Exam: Present: regular rate, normal rhythm, normal heart sounds. Absent: systolic murmur, diastolic murmur, rubs, gallop, clicks GI/Abdominal exam: Present: soft, normal bowel sounds. Absent: distended, tenderness, guarding, rebound, rigid Back exam: Present: normal inspection, full ROM. Absent: tenderness Neurological exam: Present: alert, CN II-XII intact, motor sensory deficit. Absent: oriented X3 Skin exam: Present: warm, dry, intact, normal color. Absent: rash Course Vital Signs 08/05/24 06:18 Temperature 98.0 F Pulse Rate 82 Respiratory 16 Rate Blood Pressure 137/68 O2 Sat by Pulse 96 Oximetry Medical Decision Making - Medical Decision Making Was pt. sent in by a medical professional or institution ([facility], INVESTMENT BANKING ANALYST, urgent care, hospital, or half-way...) When possible be specific @ -No Did you speak to anyone other than the patient for history (EMS, parent, family, police, friend...)? What history was obtained from this source @ -No Did you review nursing and triage notes (agree or disagree)? Why? @ -I reviewed and agree with nursing and triage notes Were old charts reviewed (outside hosp., previous admission, EMS record, old EKG, old radiological studies, urgent care reports/EKG's, half-way records)? Report findings @ -No old charts were reviewed Differential Diagnosis (chest pain, altered mental status, abdominal pain women, abdominal pain men, vaginal bleeding, weakness, fever, dyspnea, syncope, headache, dizziness, GI bleed, back pain, seizure, CVA, palpatations, mental health, musculoskeletal)? @ -Fall, intracranial hemorrhage, skull fracture, facial laceration, rib contusion rib fracture, this list is not all inclusive EKG interpreted by me (3pts min.). @ -As above X-rays interpreted by me (1pt min.). @ -Chest x-ray shows no acute cardiopulmonary process no acute fracture CT interpreted by me (1pt min.). @ -CT brain, C-spine no acute intracranial ems, skull fracture, cervical fracture U/S interpreted by me (1pt. min.). @ -None done What testing was considered but not performed or refused? (CT, X-rays, U/S, labs)? Why? @ -None What meds were considered but not given or refused? Why? @ -None Did you discuss the management of the patient with other professionals (pr ofessionals i.e. [facility], INVESTMENT BANKING ANALYST, lab, RT, psych nurse, social worker masters, twister in, teacher, community resource officer, case sealer)? Give summary @ -No Was smoking cessation discussed for >3mins.? @ -No Was critical care preformed (if so, how long)? @ -No Were there social determinants of health that impacted care today? How? (Homelessness, low income, unemployed, alcoholism, drug addiction, transportation, low edu. Level, literacy, decrease access to med. care, residential, rehab)? @ -No Was there de-escalation of care discussed even if they declined (Discuss DNR or withdrawal of care, Hospice)? DNR status @ -No What co-morbidities impacted this encounter? (DM, HTN, Smoking, COPD, CAD, Cancer, CVA, ARF, Chemo, Hep., AIDS, mental health diagnosis, sleep apnea, morbid obesity)? @ -None Was patient admitted / discharged? Hospital course, mention meds given and route, prescriptions, significant lab abnormalities, going to OR and other pertinent info. @ -discharged patient presented for fall laboratory studies, EKG, chest x-ray and CT unremarkable. Patient will be discharged in stable condition return parameters discussed. Code coag was called immediately upon arrival to the patient's secondary to head injury and on Eliquis. Undiagnosed new problem with uncertain prognosis? @ -No Drug Therapy requiring intensive monitoring for toxicity (Heparin, Nitro, Insulin, Cardizem)? @ -No Were any procedures done? @ -No Diagnosis/symptom? @ -Fall, facial abrasion, rib contusion Acute, or Chronic, or Acute on Chronic? @ -Acute Uncomplicated (without systemic symptoms) or Complicated (systemic symptoms)? @ -Complicated Side effects of treatment? @ -No Exacerbation, Progression, or Severe Exacerbation? @ -No Poses a threat to life or bodily function? How? (Chest pain, [place], [place], pneumonia, PE, COPD, DKA, ARF, appy, cholecystitis, CVA, Diverticulitis, Homicidal, Suicidal, threat to staff... and all critical care pts) @ -No - Lab Data Result diagrams: 08/05/24 06:14 08/05/24 06:14 Lab Results 08/05/24 08/05/24 Range/Units 06:14 06:14 WBC 5.78 (4.50-10.00) 10*3/uL RBC 4.37 L (4.40-5.60) 10*6/uL Hgb 13.4 (13.0-17.0) g/dL Hct 39.1 L (39.6-50.0) % MCV 89.5 (80.0-97.0) fL MCH 30.7 (27.0-32.0) pg MCHC 34.3 (32.0-37.0) g/dL Plt Count 198 (140-440) 10*3/uL MPV 10.0 (9.5-12.2) fL Immature Gran % (Auto) 0.3 % Neutrophils % 69.2 % Lymphocytes % 22.0 % Monocytes % 7.1 % Eosinophils % 0.9 % Basophils % 0.5 % Immature Gran # 0.02 (0.00-0.04) 10*3/uL Neutrophils # 4.00 (1.80-7.70) 10*3/uL Lymphocytes # 1.27 (0.90-5.00) 10*3/uL Monocytes # 0.41 (0.20-1.00) 10*3/uL Eosinophils # 0.05 (0.04-0.35) 10*3/uL Basophils # 0.03 (0.00-0.10) 10*3/uL Sodium 139 (137-145) mmol/L Potassium 3.6 (3.5-5.1) mmol/L Chloride 105 (98-107) mmol/L Carbon Dioxide 23 (22-30) mmol/L Anion Gap 11 mmol/L BUN 14 (9-20) mg/dL Creatinine 0.69 (0.66-1.25) mg/dL Est GFR (CKD-EPI)AfAm >90 (>60 ml/min/1.73 sqM) Est GFR (CKD-EPI)NonAf >90 (>60 ml/min/1.73 sqM) Glucose 118 H (74-99) mg/dL Calcium 8.7 (8.4-10.2) mg/dL Total Bilirubin 1.3 (0.2-1.3) mg/dL AST 32 (17-59) U/L ALT 15 (4-49) U/L Alkaline Phosphatase 77 (38-126) U/L Creatine Kinase 109 (55-170) U/L Total Protein 6.9 (6.3-8.2) g/dL Albumin 4.1 (3.5-5.0) g/dL - EKG Data -: EKG Interpreted by Me EKG Comments: EKG performed at 6: 14 sinus rhythm rate of 82 OR 189 QRS 119 QT/QTc 369/408 Disposition Clinical Impression: Fall, Facial abrasion, Contusion of rib on left side Disposition: HOME SELF-CARE Condition: Stable Instructions (If sedation given, give patient instructions): Rib Contusion (ED) Additional Instructions: Please return to the Emergency Department if symptoms worsen or any other concerns. Is patient prescribed a controlled substance at d/c from ED?: No Referrals: Torin Lopez MD [Primary Care Provider] - 1-2 days Time of Disposition: 07:39
[2024-08-05 06:40] LABS: Basophils # (A) 0.03 10*3/uL (0.00-0.10); Basophils % (A) 0.5 %; Eosinophils # (A) 0.05 10*3/uL (0.04-0.35); Eosinophils % (A) 0.9 %; HCT 39.1 % (39.6-50.0); HGB 13.4 g/dL (13.0-17.0); Lymphocytes # (A) 1.27 10*3/uL (0.90-5.00); MCH 30.7 pg (27.0-32.0); MCHC 34.3 g/dL (32.0-37.0); MCV 89.5 fL (80.0-97.0); Monocytes # (A) 0.41 10*3/uL (0.20-1.00); Monocytes % (A) 7.1 %; Neutrophils % (A) 69.2 %; Platelet Count 198 10*3/uL (140-440); RBC 4.37 10*6/uL (4.40-5.60); RDW 12.6 % (11.5-14.5); WBC 5.78 10*3/uL (4.50-10.00)
--- NOTE | 2024-08-05 06:50 | XR ---
EXAMINATION TYPE: XR chest 1V portable DATE OF EXAM: 08/05/2024 COMPARISON: Chest x-ray January 31, 2023 CLINICAL INDICATION: Male, 73 years old with history of left rib pain; TECHNIQUE: Single frontal view of the chest is obtained. FINDINGS: There is no focal air space opacity, pleural effusion, or pneumothorax seen. Cardiomegaly is demonstrated. The osseous structures are intact. IMPRESSION: Cardiomegaly without acute pulmonary process. [facility], , 08/05/2024 6:48 AM
--- NOTE | 2024-08-05 06:58 | CT ---
EXAMINATION TYPE: CT brain cspine wo con DATE OF EXAM: 08/05/2024 COMPARISON: , CT April 12, 2022 CLINICAL INDICATION: Male, 73 years old with history of pain, fall on thinners, headache and neck yusef n. TECHNIQUE: CT scan of the head and cervical spine are performed without contrast. CT DLP: 1502.8 mGycm. Automated Exposure Control for Dose Reduction was Utilized. FINDINGS: There is no acute intracranial hemorrhage or midline shift identified. Moderate ventricul ar and sulcal prominence redemonstrated. Old infarct left MCA distribution again seen with ex vacuo d ilatation of the left-sided ventricles. The calvarium is intact. Paranasal sinuses are clear. Cervical spine is visualized in its entirety from C1 through upper thoracic levels and demonstrates s coliotic curvature without evidence of acute fracture or dislocation. There is grade 1 retrolisthesi s C4 on C5 redemonstrated. Additional subtle grade 1 retrolisthesis of C6 on C7 is present. Preverteb ral soft tissue appears within normal limits. The C1-C2 articulation is unremarkable. Vertebral bod y heights are preserved. Multilevel disc space narrowing with moderate to advanced findings at the C4 -C5 and C6-C7 levels is present. Axial images show multilevel facet degenerative changes bilaterally. Thyroid gland is normal in size. Upper lungs show no pneumothorax. IMPRESSION: 1. There is no acute fracture or dislocation evident in the cervical spine. 2. No acute intracranial hemorrhage or midline shift is seen. No significant change from prior. [facility], , 08/05/2024 6:56 AM
[2024-08-05 07:27] LABS: ALT 15 U/L (4-49); AST 32 U/L (17-59); African American GFR (CKD) >90 (>60 ml/min/1.73 sqM); Albumin 4.1 g/dL (3.5-5.0); Alkaline Phosphatase 77 U/L (38-126); Anion Gap 11 mmol/L; Blood Urea Nitrogen 14 mg/dL (9-20); Calcium 8.7 mg/dL (8.4-10.2); Carbon Dioxide 23 mmol/L (22-30); Chloride 105 mmol/L (98-107); Creatine Kinase 109 U/L (55-170); Glucose 118 mg/dL (74-99); Non-African American GFR(CKD) >90 (>60 ml/min/1.73 sqM); Potassium 3.6 mmol/L (3.5-5.1); Sodium 139 mmol/L (137-145); Total Bilirubin 1.3 mg/dL (0.2-1.3); Total Protein 6.9 g/dL (6.3-8.2)
[2024-08-05] MEDS: BACITRACIN OINT 1 EACH PACKET TOPICAL ONE (07:45)
== END 2024-08-05 09:03 | disposition home or self-care (01) ==
LOC: EC 06:10
DX: S20.212A Contusion of left front wall of thorax, initial encounter (principal); S00.81XA Abrasion of other part of head, initial encounter; Z86.73 Personal history of transient ischemic attack (TIA), and cerebral infarction without residual deficits; Z87.891 Personal history of nicotine dependence; W19.XXXA Unspecified fall, initial encounter
CPT/HCPCS: 36415; 70450; 71045; 72125; 80053; 82550; 85025; 93005; 99284

== ENCOUNTER 2024-08-27 12:12 | Emergency (ER) | payer OTHER ==
[2024-08-27 12:18] VITALS: TEMP 98.3
--- NOTE | 2024-08-27 14:36 | ED ---
General Adult HPI - General Chief complaint: Urogenital Stated complaint: Urogenital Time Seen by Provider: 08/27/24 14:02 Source: patient, RN notes reviewed, Caregiver Mode of arrival: wheelchair Limitations: no limitations, altered mental status - History of Present Illness Initial comments: Patient is a 73-year-old male presenting to the emergency department from [facility] home with concerns with difficulty urinating. Unclear onset. Patient admits that he has having problems with urinating. Unclear patient has history of similar symptoms previously however he does wear briefs. Patient is a poor historian. Patient has history of previous stroke. - Related Data Home Medications Medication Instructions Recorded Confirmed Donepezil [Aricept] 10 mg PO HS@219912/10/17 08/27/24 Folic Acid 1 mg PO DAILY@79912/10/17 08/27/24 Memantine [Namenda] 5 mg PO HS@199912/10/17 08/27/24 Aspirin EC [Ecotrin Low Dose] 81 mg PO DAILY@79911/08/20 08/27/24 Rosuvastatin Calcium [Crestor] 20 mg PO HS@209911/08/20 08/27/24 amLODIPine [Norvasc] 5 mg PO DAILY@79911/08/20 08/27/24 Furosemide [Lasix] 20 mg PO BID@0800,159902/21/22 08/27/24 Apixaban [Eliquis] 5 mg PO BID@0800,199905/28/22 08/27/24 Acetaminophen Tab [Tylenol Tab] 500 mg PO Q6H PRN 08/27/24 08/27/24 Ammonium Lactate Lotion 1 applic TOPICAL DAILY@79908/27/24 08/27/24 [Lac-Hydrin 12% Lotion] Cholecalciferol [Vitamin D3 (125 125 mcg PO DAILY@79908/27/24 08/27/24 Mcg = 5000 Iu)] Famotidine 40 mg PO DAILY@79908/27/24 08/27/24 Melatonin 3 mg PO HS@199908/27/24 08/27/24 Butler Xl 2 cap PO DAILY@79908/27/24 08/27/24 Slow-Mag 71.5mg 71.5 mg PO DAILY@79908/27/24 08/27/24 Tamsulosin HCl [Flomax] 0.4 mg PO DAILY@0800 08/27/24 08/27/24 Allergies Allergy/AdvReac Type Severity Reaction Status Date / Time No Known Allergies Allergy Verified 08/27/24 17:10 Review of Systems ROS Statement: Those systems with pertinent positive or pertinent negative responses have been documented in the HPI. ROS Other: All systems not noted in ROS Statement are negative. Genitourinary: Reports: as per HPI, urgency Past Medical History Past Medical History: CVA/TIA, Deep Vein Thrombosis (DVT), Hyperlipidemia, Hypertension, Memory Impairment, Prostate Disorder Additional Past Medical History / Comment(s): CVA -pt unsure of year - residual right sided deficits with right foot droop. pt has difficulties with memory impairment and expressive aphasia as well. Edema R upper extremity. hx of DVT. History of Any Multi-Drug Resistant Organisms: None Reported Past Surgical History: No Surgical Hx Reported Additional Past Surgical History / Comment(s): right forearm hematoma evacuation Past Anesthesia/Blood Transfusion Reactions: No Reported Reaction Past Psychological History: No Psychological Hx Reported Smoking Status: Former smoker Past Alcohol Use History: None Reported Past Drug Use History: None Reported - Past Family History Father History Unknown: Yes General Exam Limitations: no limitations General appearance: alert, in no apparent distress Head exam: Present: normocephalic Eye exam: Present: normal appearance Neck exam: Present: normal inspection Respiratory exam: Present: normal lung sounds bilaterally Cardiovascular Exam: Present: regular rate, normal rhythm GI/Abdominal exam: Present: soft. Absent: tenderness exam: Present: normal inspection. Absent: testicular tenderness, scrotal swelling Extremities exam: Present: normal inspection Neurological exam: Present: alert, motor sensory deficit (Right-sided weakness) Psychiatric exam: Present: normal affect, normal mood Skin exam: Present: normal color Course Vital Signs 08/27/24 08/27/24 08/27/24 12:14 15:01 17:19 Temperature 98.3 F Pulse Rate 84 63 68 Respiratory 18 18 16 Rate Blood Pressure 123/74 133/87 127/76 O2 Sat by Pulse 95 97 96 Oximetry Medical Decision Making - Medical Decision Making Was pt. sent in by a medical professional or institution (, PA, [employer]CT[employer], urgent care, hospital, or halfway...) When possible be specific @ -Patient sent by adult foster care Did you speak to anyone other than the patient for history (EMS, parent, family, police, friend...)? What history was obtained from this source @ -No Did you review nursing and triage notes (agree or disagree)? Why? @ -I reviewed and agree with nursing and triage notes Were old charts reviewed (outside hosp., previous admission, EMS record, old EKG, old radiological studies, urgent care reports/EKG's, halfway records)? Report findings @ -No old charts were reviewed Differential Diagnosis (chest pain, altered mental status, abdominal pain women, abdominal pain men, vaginal bleeding, weakness, fever, dyspnea, syncope, headache, dizziness, GI bleed, back pain, seizure, CVA, palpatations, mental health, musculoskeletal)? @ -Differential Abdominal Pain Men: Appendicitis, cholecystitis, diverticulosis, ischemic bowel, pancreatitis, hepatitis, UTI, gastroenteritis, AAA, incarcerated hernia, bowel obstruction, constipation, inflammatory bowel, hepatitis, peptic ulcer disease, splenic infarction, perforated viscus, testicular torsion, this is not meant to be an all-inclusive list EKG interpreted by me (3pts min.). @ -As above X-rays interpreted by me (1pt min.). @ -None done CT interpreted by me (1pt min.). @ -CT abdomen pelvis without acute abnormality U/S interpreted by me (1pt. min.). @ -None done What testing was considered but not performed or refused? (CT, X-rays, U/S, labs)? Why? @ -None What meds were considered but not given or refused? Why? @ -None Did you discuss the management of the patient with other professionals (professionals i.e. , PA, [employer], lab, RT, psych nurse, social staff worker, mill worker, teacher, bank operations officer, case supervisor)? Give summary @ -No Was smoking cessation discussed for >3mins.? @ -No Was critical care preformed (if so, how long)? @ -No Were there social determinants of health that impacted care today? How? (Homelessness, low income, unemployed, alcoholism, drug addiction, transportation, low edu. Level, literacy, decrease access to med. care, residential, rehab)? @ -No Was there de-escalation of care discussed even if they declined (Discuss DNR or withdrawal of care, Hospice)? DNR status @ -No What co-morbidities impacted this encounter? (DM, HTN, Smoking, COPD, CAD, Cancer, CVA, ARF, Chemo, Hep., AIDS, mental health diagnosis, sleep apnea, morbid obesity)? @ -None Was patient admitted / discharged? Hospital course, mention meds given and route, prescriptions, significant lab abnormalities, going to OR and other pertinent info. @ -Patient presents with urinary retention. Patient had Cox catheter placed with 300 cc out. Patient still has some discomfort so CT scan was ordered revealing no acute abnormality. On reevaluation patient is feeling much better. Patient is updated Undiagnosed new problem with uncertain prognosis? @ -No Drug Therapy requiring intensive monitoring for toxicity (Heparin, Nitro, Insulin, Cardizem)? @ -No Were any procedures done? @ -No Diagnosis/symptom? @ -Urinary retention Acute, or Chronic, or Acute on Chronic? @ -Acute Uncomplicated (without systemic symptoms) or Complicated (systemic symptoms)? @ -Default Side effects of treatment? @ -No Exacerbation, Progression, or Severe Exacerbation? @ -No Poses a threat to life or bodily function? How? (Chest pain, [place], [place], pneumonia, PE, COPD, DKA, ARF, appy, cholecystitis, CVA, Diverticulitis, Homicidal, Suicidal, threat to staff... and all critical care pts) @ -No - Lab Data Lab Results 08/27/24 Range/Units 15:22 Urine Color Colorless Urine Appearance Clear (Clear) Urine pH 6.0 (5.0-8.0) Ur Specific [place] 1.007 (1.001-1.035) Urine Protein Negative (Negative) Urine Glucose (UA) Negative (Negative) Urine Ketones Negative (Negative) Urine Blood Negative (Negative) Urine Nitrite Negative (Negative) Urine Bilirubin Negative (Negative) Urine Urobilinogen <2.0 (<2.0) mg/dL Ur Leukocyte Esterase Negative (Negative) Disposition Clinical Impression: Urinary retention Disposition: HOME SELF-CARE Condition: Stable Instructions (If sedation given, give patient instructions): Urinary Retention in Men (ED) Additional Instructions: Please do follow-up with primary care physician and urologist in the next couple of days for recheck. Return for increased pain, difficulty passing urine throu gh catheter, change or worsening symptoms or other concerns. Is patient prescribed a controlled substance at d/c from ED?: No Referrals: Torin Lopez MD [Primary Care Provider] - 1-2 days Panchito Valladares MD [STAFF PHYSICIAN] - 1-2 days Time of Disposition: 19:02
[2024-08-27 15:52] LABS: Bilirubin,Urine Negative (Negative); Blood,Urine Negative (Negative); Color,Urine Colorless; Glucose,Urine (UA) Negative (Negative); Ketones,Urine Negative (Negative); Leukocyte Esterase,Urine Negative (Negative); Nitrite,Urine Negative (Negative); PH, Urine 6.0 (5.0-8.0); Protein,Urine Negative (Negative); Specific Gravity,Urine 1.007 (1.001-1.035); Urobilinogen,Urine <2.0 mg/dL (<2.0)
[2024-08-27 17:21] VITALS: BP 127/76; PULSE 68; RESP 16
--- NOTE | 2024-08-27 18:16 | CT ---
EXAMINATION TYPE: CT abdomen pelvis wo con CT DLP: 622.6 mGycm, Automated exposure control for dose reduction was used. DATE OF EXAM: 08/27/2024 6:05 PM COMPARISON: CT abdomen pelvis 05/28/2022 CLINICAL INDICATION:Male, 73 years old with history of abp; abdominal pain TECHNIQUE: Standard CT of the abdomen and pelvis without IV or oral contrast. Lack of IV or oral co ntrast limits evaluation of solid and hollow organ viscera. Coronal and sagittal reformats were perfo rmed. FINDINGS: LOWER CHEST: Posterior dependent subsegmental atelectasis is noted. Small pericardial effusion. ABDOMEN LIVER: Unremarkable noncontrast appearance. GALLBLADDER AND BILE DUCTS: The gallbladder is surgically absent. No biliary ductal dilatation. PANCREAS: Unremarkable noncontrast appearance. SPLEEN: Unremarkable noncontrast appearance. ADRENAL GLANDS: Unremarkable noncontrast appearance.. KIDNEYS AND URETERS: No evidence of hydronephrosis. No left renal calculi. Nonobstructing right renal upper pole 2 mm calculus.Simple right mid kidney exophytic 1.2 cm cyst. No flap recommended. Similar focal cortical thinning of the left mid kidney medially likely related to prior insult. No hydrouret er or ureteral calculus identified. Circumaortic left renal vein. PELVIS BLADDER: Nondistended with Cox catheter in place. Nondependent intraluminal gas likely from cathete r placement. REPRODUCTIVE: Coarse calcifications of the prostate gland are identified. ABDOMEN & PELVIS STOMACH AND BOWEL: Stomach and duodenum are unremarkable. Distal colonic diverticulosis without evide nce for acute diverticulitis. No focal bowel wall thickening or surrounding inflammatory changes. The appendix is within normal limits. No evidence of bowel obstruction. PERITONEUM: No evidence of pneumoperitoneum or free fluid. VASCULATURE: Mild atherosclerotic calcifications are present throughout the abdominal aorta and its b ranches. No evidence of aortic aneurysm. MUSCULOSKELETAL: No acute osseous abnormalities. Postsurgical changes from right hip arthroplasty. Si milar prominent Schmorl's node involving the superior endplate of the L5 vertebral body with some amy tral height loss. Multilevel Schmorl's nodes redemonstrated. Remote anterior wedge compression deform ity of the T8 vertebral body with approximately 50% height loss. No retropulsion. LYMPH NODES: No gross evidence for lymphadenopathy. SOFT TISSUE/ABDOMINAL WALL: Postsurgical changes from left inguinal hernia repair without evidence fo r recurrent hernia. Small fat filled umbilical hernia. IMPRESSION: 1. No CT evidence for acute abdominal/pelvic process within limitations of a noncontrast exam. 2. Nonobstructing right renal calculus. 3. Colonic diverticulosis without evidence for acute diverticulitis. [facility], , 08/27/2024 6:13 PM
== END 2024-08-27 22:25 | disposition home or self-care (01) ==
LOC: EC 12:12
DX: R33.9 Retention of urine, unspecified (principal); Z87.891 Personal history of nicotine dependence
CPT/HCPCS: 51702; 74176; 81003; 99285